=== PATIENT | female | born 1950 | race Hispanic/Latino ===

== ENCOUNTER 2019-10-29 10:07 | Emergency (ER) | payer MEDICARE, OTHER ==
[~2019-10-29] VITALS: Ht 160 cm; Wt 59.0 kg
[~2019-10-29 10:07] MED LIST: ATENOLOL PO; ATORVASTATIN PO; CYCLOBENZAPRINE10 MG PO; FENOFIBRATE PO; FOLIC ACID1 MG PO; LISINOPRIL PO; METHOTREXATE PO; METHYLPREDNISOLONE PO; NIFEDIPINE ER PO; PAROXETINE PO; TRAMADOL-ACETAMI1 EA PO; glimepiride PO; levothyroxine PO; ranitidine PO
[2019-10-29] MEDS ORDERED: LIDOCAINE HCL 1% LOCAL INJ 20 ML VIAL ONE (11:14)
[2019-10-29] MEDS ORDERED: BACITRACIN ZINC 0.9GM TP ONE ×2 (11:25→11:30)
[2019-10-29] MEDS ORDERED: LIDOCAINE HCL 1% 2 ML AMP INJ ONE (11:30)
--- OUTSIDE RECORDS SUMMARY | 2019-10-29 11:36 | XMS REPORT ---
Author Author MIKAL Mcrae Organization [employer] Address Unknown Phone Unavailable Care Team Providers Care District Court Reporter Name Role Phone James Mcrae CP Unavailable Allergies No Known Allergies Problems Problem Type Condition Code Onset Dates Condition Statu s Problem Rheumatoid arthritis with rh eumatoid factor of multiple sites without organ or systems involvement M05.79 Active Problem Primary osteoarthritis involving multiple joints M15.0 Active Problem Subacromial bursitis, right M75.51 Active Problem Trapezius muscle spasm M62.838 Activ e Problem Long-term use of high-risk medication Z79.899 Active Problem Arm pain M79.603 Active Problem Back pain M54.9 Active Problem Screening for osteoporosis Z13.820 A ctive Medications No Known Medications Results No Known Results Summary Purpose eClinicalWorks Submission
--- OUTSIDE RECORDS SUMMARY | 2019-10-29 11:36 | XMS REPORT ---
Author Author MIKAL Mcrae Organization [employer] Address Unknown Phone Unavailable Care Team Providers Care Construction Framer Name Role Phone James Mcrae CP Unavailable [...]
--- OUTSIDE RECORDS SUMMARY | 2019-10-29 11:36 | XMS REPORT ---
Author Author MIKAL Mcrae Organization [employer] Address Unknown Phone Unavailable Care Team Providers Care Fish Receiver Name Role Phone James Mcrae CP Unavailable [...]
--- OUTSIDE RECORDS SUMMARY | 2019-10-29 11:36 | XMS REPORT ---
Author Author MIKAL Henderson [facility] eClinicalWorks Address Unknown Phone Unavailable Care Team Providers Care Open Hearth Furnace Laborer Name Role Phone Catie Henderson Unavailable Allergies, Adverse Reactions, Alerts Substance Reaction Event Type PCN rash Non Drug Allergy Problems Problem Type Condition Code Onset Dates Condition Statu s Assessment Primary osteoarthritis involving multiple joints M15.0 Active Assessment Rheumatoid arthritis with rh eumatoid factor of multiple sites without organ or systems involvement M05.79 Active Assessment Long-term use of high-risk medication Z79.899 Active Assessment Muscle spasm M62.838 Active Problem Subacromial bursitis, right M75.51 Active Problem Back pain M54.9 Active Problem Primary osteoarthritis involving multiple joints M15.0 Active Problem Arm pain M79.603 Active Problem Rheumatoid arthritis with rh eumatoid factor of multiple sites without organ or systems involvement M05.79 Active Problem Screening for osteoporosis Z13.820 A ctive Problem Long-term use of high-risk medication Z79.899 Active Medications Medication Code System Code Instructions Start Date End Date Status Dosage Folic Acid [facility] [address]-12 1 MG Orally Once a day Active 2 tablets Methotrexate ND 0 25mg/1mL Subcutaneous Once a week Active 1mL Losartan Potassium-HCTZ [facility] [address]-81 100-12.5 MG Orally Onc e a day Active 1 tablet MethylPREDNISolone [facility] 43359146170 4 Active T REBECCA ONE TABLET BY MOUTH DAILY Atorvastatin Calcium [facility] [address]-87 10 MG Orally Once a day Active 1 tablet Levothyroxine Sodium [facility] [address]-20 75 MCG Orally Once a day Active 1 tablet on an empty stomach in the morning Gabapentin [facility] 83805752048 300 mg once a day Active 1 capsule NIFEdipine [facility] [address]-43 30 MG Orally Once a day Active as directed Esomeprazole Magnesium [facility] [address]-36 40 MG Orally Once a day Active 1 capsule Fenofibrate [facility] [address]-36 54 MG Orally Once a day Active 1 tablet with a meal Atenolol [facility] [address]-34 50 MG Orally twice a day Active 1 tablet Paroxetine HCl [facility] [address]-57 20 MG Orally Once a day Active 1 tablet in the morning Glimepiride [facility] [address]-67 1 MG Orally Once a day Active 1 tablet with breakfast or the first main meal of the day Hydroxychloroquine Sulfate [facility] 54999661637 200 mg twice a day Active TAKE ONE TABLET BY MOUTH TWICE A DAY WITH FOOD Metformin HCl [facility] [address]-83 500 MG Orally Twice a day Active 1 tablet with meals Ranitidine & Diet Manage Prod ND 0 150 MG Orally once a day Active as directed Tizanidine HCl [facility] [address]-86 4 MG Orally every 8 hrs Active 1 tablet as needed Tylenol [facility] [address]-40 325 MG Orally every 6 hrs Active 2 tablets as needed BD Allergy Syringe [facility] 60135611635 1 mL Active U SE ONE - DIRECTED WEEKLY Lisinopril [facility] [address]-64 10 mg Orally Once a day Active 1 tablet Vital Signs Date/Time: Dec 19, 2016 BMI 24.20 Index Weight 132.3 lbs Height 62 in Temperature 96.7 F Cardiac Monitoring Heart Rate 70 /min Blood Pressure Diastolic 70 mm Hg Blood Pressure Systolic 142 mm Hg Results No Known Results Summary Purpose eClinicalWorks Submission
--- OUTSIDE RECORDS SUMMARY | 2019-10-29 11:36 | XMS REPORT ---
Author Author MIKAL Mcrae [facility] eClinicalWorks Address Unknown Phone Unavailable Care Team Providers Care Diesel Electrician Name Role Phone James Mcrae CP Unavailable [...] Screening for osteoporosis Z13.820 A ctive Medications Medication Code System Code Instructions Start Date End Date Status Dosage Lyrica [facility] 25475935757 50 MG Orally Once a day Apr 10, 2017 Active 1 capsule Results No Known Results Summary Purpose eClinicalWorks Submission
--- OUTSIDE RECORDS SUMMARY | 2019-10-29 11:36 | XMS REPORT ---
Author Author MIKAL Mcrae Organization [employer] Address Unknown Phone Unavailable Care Team Providers Care Blanchard Grinder Operator Name Role Phone James Mcrae CP Unavailable Allergies No Known Allergies Problems Problem Type Condition Code Onset Dates Condition Statu s Problem Long-term use of high-risk medication Z79.899 Active Problem Rheumatoid arthritis with rh eumatoid factor of multiple sites without organ or systems involvement M05.79 Active Assessment Rheumatoid arthritis with rh eumatoid factor of multiple sites without organ or systems involvement M05.79 Active Problem Trapezius muscle spasm M62.838 Activ e Problem Primary osteoarthritis involving multiple joints M15.0 Active Problem Shoulder pain M25.519 Active Problem Screening for osteoporosis Z13.820 A ctive Problem Arm pain M79.603 Active Problem Subacromial bursitis, right M75.51 Active Problem Back pain M54.9 Active Medications Medication Code System Code Instructions Start Date End Date Status Dosage Folic Acid [facility] 30537603933 1 MG Orally Once a day Ac tive 2 tablets Results No Known Results Summary Purpose eClinicalWorks Submission
--- OUTSIDE RECORDS SUMMARY | 2019-10-29 11:36 | XMS REPORT ---
Author Author MIKAL Mcrae Organization [employer] Address Unknown Phone Unavailable Care Team Providers Care Funeral Service Apprentice Name Role Phone James Mcrea CP Unavailable Allergies No Known Allergies Problems Problem Type Condition Code Onset Dates Condition Statu s Problem Subacromial bursitis, right M75.51 Active Problem Back pain M54.9 Active Problem Primary osteoarthritis involving multiple joints M15.0 Active Problem Arm pain M79.603 Active Problem Rheumatoid arthritis with rh eumatoid factor of multiple sites without organ or systems involvement M05.79 Active Problem Screening for osteoporosis Z13.820 A ctive Problem Long-term use of high-risk medication Z79.899 Active Medications No Known Medications Results No Known Results Summary Purpose eClinicalWorks Submission
--- OUTSIDE RECORDS SUMMARY | 2019-10-29 11:36 | XMS REPORT ---
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 organ or systems involvement M05.79 Active Problem Rheumatoid arthritis with rh eumatoid factor of multiple sites without organ or systems involvement M05.79 Active Assessment Long-term use of high-risk medication Z79.899 Active Problem Primary osteoarthritis involving multiple joints M15.0 Active Problem Subacromial bursitis, right M75.51 Active Problem Trapezius muscle spasm M62.838 Activ e Problem Long-term use of high-risk medication Z79.899 Active Problem Arm pain M79.603 Active Problem Back pain M54.9 Active Problem Screening for osteoporosis Z13.820 A ctive Medications Medication Code System Code Instructions Start Date End Date Status Dosage Carvedilol ND 95026510584 25 MG Orally bid Active 1 tablet Tizanidine HCl ND 22834132336 4 MG Orally every 8 hrs Active 1 tablet as needed Losartan Potassium-HCTZ ND 72508508858 100-25 MG Orally Once a day Active 1 tablet Levothyroxine Sodium ND 47277050702 125 MCG Orally Once a day Active 1 tablet on an empty stomach in the morning MethylPREDNISolone ND 59539734564 4 MG Active T OME MARY TABLETA POR VIA ORAL CADA MANANA CON COMIDA O LECHE Metformin HCl ND 50135049207 500 MG Orally Twice a day Active 1 tablet with meals Amlodipine Besylate ND 51263990153 5 MG Orally bid Active 1 tablet Paroxetine HCl ND 03467089607 20 MG Orally Once a day Active 1 tablet in the morning Fenofibrate ND 65787464337 54 MG Orally Once a day Active 1 tablet with a meal Gabapentin ND 24051346697 100 MG Orally Twice a day Mar 30, 2018 Active 1 capsule Methotrexate [facility] 48077899821 2.5mg Orally Once a week October 01, 2018 Active 6 tablets Folic Acid [facility] 70768970030 1 MG Orally Once a day Ac tive 2 tablets Esomeprazole Magnesium [facility] 82747773325 40 MG Orally bid Active 1 capsule Vital Signs Date/Time: Oct 15, 2018 BMI 24.56 Index Weight 130 lbs Height 61 in Temperature 98.7 F Cardiac Monitoring Heart Rate 72 /min Blood Pressure Diastolic 70 mm Hg Blood Pressure Systolic 150 mm Hg Results Name Result Date Reference Range Unit Abnormali ty Flag C-REACTIVE PROTEIN ----C-REACTIVE PROTEIN 0.7 [id number] <8.0 mg/L N SED RATE BY MODIFIED WESTERGREN ----SED RATE BY MODIFIED WESTERGREN 2 [id number] < OR = 30 mm/h N Summary Purpose eClinicalWorks Submission
--- OUTSIDE RECORDS SUMMARY | 2019-10-29 11:36 | XMS REPORT | Continuity of Care Document ---
Author Author [facility] [employer] Address Unknown Phone Unavailable Care Team Providers Care Owner Spa Director Name Role Phone [employer] Unavailable Un available Problems Problem Status Onset Date Classification Date Reported Comments Source TRAPEZIUS MUSCLE SPASM, NECK PAIN Active 07/27/2018 [facility] [place] Other spondylosis with radiculopathy, clair mbosacral region 02/08/2018 06/21/2018 [facility] DIARHEA Active 12/19/2014 [place] Subacromial bursitis, right Ac tive Problem 10/2019 Viraj Mcrae Back pain Active Problem 09/15/2019 Viraj Mcrae Primary osteoarthritis involving multiple joints Active Problem 09/15/2019 Viraj Garcíaer Arm pain Active Problem 09/15/2019 Viraj Garcíaer 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 Active Problem 09/15/2019 Viraj Mcrae Screening for osteoporosis Act lul Problem 10/2019 Viraj Mcrae Long-term use of high-risk medication Active Problem 10/2019 Viraj Garcíaer Trapezius muscle spasm Active Problem 09/15/2019 Viraj Garcíaer Muscle spasm Active Diagnosis 12/24/2016 Viraj Mcrae Rheumatoid arthritis Active Problem 02/28/2016 Virajleydi Mcrae Long-term (current) use of other medicat ions - High Risk Active Prob blane 02/28/2016 Viraj Mcrae Pain in joint, upper arm/elbow Active Problem Viraj Mcrae Psoriasis Active Problem 02/28/2016 Virajleydi Mcrae Postmenopausal status (age-related) Active Problem Viraj Mcrae Screening for depression Active Diagnosis 01/13/2014 Viraj Mcrae Pain in joint, shoulder region Active Problem Viraj Mcrae Pain, back Active Diagnosis 01/13/2014 Viraj Mcrae Fibromyalgia Active Diagnosis 10/21/2014 Viraj Mcrae Sacroiliitis, not elsewhere classified Active Diagnosis 01/13/2014 Viraj Mcrae Spasm of muscle Active Problem 02/28/2016 Viraj Garcíaer Left shoulder pain Active Diagnosis 02/28/2016 Viraj Mcrae Neck pain Active Diagnosis 12/02/2018 Viraj Mcrae Shoulder pain Active Problem 09/15/2019 Viraj Mcrae Other forms of scoliosis, lumbar region 06/21/2018 [facility] [place] Spinal stenosis, lumbar region without n eurogenic claudication 06/21/2018 [facility] [place] Medications Medication Details Route Status Patient Instructions Ordering Provider Order Date Source Plaquenil one tablet with food of milk Orally Active 200 MG Orally once a day [place] 02/01/2019 Viraj Mcrae Methotrexate 6 tablets Orally Active 2.5mg Orally Once a wee k [place] 10/01/2018 Viraj Mcrae Gabapentin 1 capsule Orally Active 100 MG Orally Twice a d ay [place] 03/30/2018 Viraj Mcrae Hydroxychloroquine Sulfate 1 t ablet with food or milk Orally Active 200 MG Orally twice a day [place] 01/13/2018 Viraj Mcrae Methotrexate 1mL Subcutaneous Active 25mg/1mL Subcutaneous O nce a week [place] 12/31/2017 Viraj Mcrae Lyrica 1 capsule Orally Active 50 MG Orally Once a day [place] 04/10/2017 Viraj Mcrae Lyrica 1 capsule Orally Active 50 MG Orally q day Mcrae 03/20/2017 Viraj Mcrae Rheumate 1 tabelt Orally Active - Orally once a day Mcrae 12/30/2016 Viraj Mcrae Methotrexate 1mL Subcutaneous Active 25mg/1mL Subcutaneous O nce a week [place] 06/16/2015 Viraj Mcrae Gabapentin 1 cap daily 3 day, 2 cap daily x 3 day and then take 3 caps daily Orally Active 100 MG Orally qhs Elidia 10/10/2014 Viraj Mcrae Rasuvo 0.4 ml Subcutaneous Active 20 MG/0.4ML Subcutaneou s once a week Elidia 10/10/2014 Viraj Mcrae Medrol (Remi) as directed Orally Active 4 MG Orally Elidia 06/20/2014 Viraj Mcrea Hydroxychloroquine Sulfate 1 t ablet with food or milk Orally Active 200 MG Orally twice a day Yous af 06/20/2014 Viraj Mcrae Enbrel SureClick 1 ml Subcutaneous Active 50 MG/ML Subcutaneous once a week [place] 08/23/2013 Viraj Mcrae Folic Acid 2 tablets Orally Active 1 MG Orally Once a day [place] [facility] Mcrae Methotrexate 0.8 cc Subcutaneous Active 25mg/1mL Subcutaneous Once a week Clementina Mcrae Losartan Potassium-HCTZ 1 tabl et Orally Active 100-12.5 MG Orally Once a day Santiago Mcrae MethylPREDNISolone TAKE ONE TA BLET BY MOUTH DAILY NA Active 4m gv Clementina Mcrae Atorvastatin Calcium 1 tablet Orally Active 10 MG Orally Once a day [place] Viraj Mcrae Levothyroxine Sodium 1 tablet on an empty stomach in the morning Orally Active 75 MCG Orally Once a day [place] Viraj Mcrae Gabapentin 1 capsule NA Active 300 mg once a day [place] [facility] Mcrae NIFEdipine as directed Orally Active 30 MG Orally Once a day [place] Viraj Mcrae Esomeprazole Magnesium 1 capsu le Orally Active 40 MG Orally Once a day [place] Viraj Mcrae Fenofibrate 1 tablet with a me al Orally Active 54 MG Orally Once a day [place] Viraj Mcrae Atenolol 1 tablet Orally Active 50 MG Orally twice a da y [place] [facility] Mcrae Paroxetine HCl 1 tablet in the morning Orally Active 20 MG Orally Once a day [place] Viraj Mcrae Glimepiride 1 tablet with chris kfast or the first main meal of the day Orally Active 1 MG Orally Once a day Santiago Mcrae Hydroxychloroquine Sulfate EZ E MARY TABLETA POR BOCA DOS VECES POR TREVOR WITH FOOD NA Active 200 MG Hendersonmian Mcrae Metformin HCl 1 tablet with me als Orally Active 500 MG Orally Twice a day [place] Viraj Mcrae Ranitidine & Diet Manage Prod as directed Orally Active 150 MG Orally once a day Clementina Mcrae Tizanidine HCl 1 tablet as nee ded Orally Active 4 MG Orally every 8 hrs [place] Viraj Mcrae Tylenol 2 tablets as needed Orally Active 325 MG Orally every 6 hrs Santiago Mcrae BD Allergy Syringe USE ONE - A S DIRECTED WEEKLY NA Active 1 mL Hendersonmian Mcrae Lisinopril 1 tablet Orally Active 10 mg Orally Once a day [place] [facility] Mcrae Gabapentin 2 capsules Orally Active 100 MG Orally once a da y [place] Viraj Mcrae Paroxetine HCl 1 tablet in the morning Orally Active 20 MG Orally Once a day [place] Viraj Mcrae Losartan Potassium-HCTZ 1 tabl et Orally Active 100-25 MG Orally Once a day Santiago Mcrae Carvedilol 1 tablet Orally Active 25 MG Orally bid Shanelle Mcrae Atorvastatin Calcium 1 tablet Orally Active 10 MG Orally Once a day Santiago Mcrae Esomeprazole Magnesium 1 capsu le Orally Active 40 MG Orally bid Shanelle Mcrae Gabapentin 2 capsules Orally Active 100 MG Orally once a da y Santiago Mcrae Amlodipine Besylate 1 tablet Orally Active 5 MG Orally bid Shanelle Mcrae Levothyroxine Sodium 1 tablet on an empty stomach in the morning Orally Active 125 MCG Orally Once a day Ambr meme Mcrae Metformin HCl 1 tablet with me als Orally Active 500 MG Orally Twice a day Shanelle Mcrae Fenofibrate 1 tablet with a me al Orally Active 54 MG Orally Once a day Shanelle Mcrae Tizanidine HCl 1 tablet as nee ded Orally Active 4 MG Orally every 8 hrs Shanelle Mcrae Folic Acid 2 tablets Orally Active 1 MG Orally Once a day Clementina Mcrae Lisinopril 1 tablet Orally Active 10 mg Orally Once a day Clementina Mrcae Glimepiride 1 tablet with chris kfast or the first main meal of the day Orally Active 1 MG Orally Once a day Clementina Mcrae MethylPREDNISolone 1 tablet wi th food or milk in the morning Orally Active 4 MG Orally Once a day Clementina Mcrae Methotrexate 6 tablets Orally Active 2.5mg Orally Once a wee k Santiago Mcrae Cyclobenzaprine HCl 1 tablet Orally Active 10 MG Orally Three times a day Elidia Mcrae MethylPREDNISolone TAKE ONE TA BLET BY MOUTH EVERY DAY NA Active 4 Elidiaanette Mcrae Tramadol-Acetaminophen 1 table ts as needed Orally Active 37.5-325 MG Orally four times a day Elidia Mcrae Ranitidine & Diet Manage Prod as directed Orally Active 150 MG Orally once a day Santiago Mcrae Methotrexate TAKE 8 TABLETS BY MOUTH ONCE WEEKLY NA No Longer Active 2.5 Elidiaanette Mcrae Gabapentin TAKE ONE CAPSULE BY MOUTH DAILY FOR 3 DAYS THEN TAKE TWO CAPSULES BY MOUTH DAILY FOR 3 DAYS THEN TAKE THREE CAPSULES BY MOUTH DAILY NA Active 100 Elidiaanette Mcrae Nitrofurantoin Monohyd Macro 1 capsule with food Orally Active 100 MG Orally every 12 hrs Elidia Viraj Mcrae Macrobid 1 capsule with food Orally Active 100 MG Orally every 12 hrs Elidia Viraj Mcrae MethylPREDNISolone 1/2 tab blanca ly x 4wks, then 1/2 tab QOD if tolerated. NA Active 4 Elidia Viraj Mcrae Flu/Cold Medicine as directed Orally Active 500-4-60 MG Orally [place] Viraj Mcrae MethylPREDNISolone 1 tablet wi th food or milk Orally Active 4 MG Orally once a day Shanelle Mcrae Losartan Potassium-HCTZ 1 tabl et Orally Active 100-25 MG Orally Once a day [facility] Viraj Mcrae Methotrexate Sodium ONE INJECT ION OF 1ML (ONE MILLILITER) DEBAJO DE [place] PIEL ONCE WEEKLY NA Active 50 MG/2ML Santiago Mcrae Methotrexate 6 tablets Orally Active 2.5mg Orally Once a wee k Shanelle Mcrae Gabapentin 1 capsule Orally Active 100 MG Orally Twice a d ay Shanelle Mcrae Ibuprofen 1 tablet with food o r milk as needed Orally Active 800 MG Orally Once a day Santiago Mcrae Tylenol#3 1 tablet Orally Active 300-30 MG Orally Once a day Santiago Mcrae Olmesartan Medoxomil 1 tablet Orally Active 40 MG Orally Once a day Shanelle Mcrae Atorvastatin Calcium 1 tablet Orally Active 40 MG Orally Once a day Shanelle Mcrae Hydrochlorothiazide 1 capsule in the morning Orally Active 12.5 MG Orally Once a day Shanelle Mcrae Allergies, Adverse Reactions, Alerts Substance Category Reaction Severity Reaction type Status Date Reported Comments Source PCN Adverse Reaction rash Adverse Reaction Active 07/19/2019 Viraj Mcrae No Known Medication Allergies Assertion Drug aller gy [facility] [place] Immunizations Immunization Date Given Site Status Last Updated Comments Source Toradol 01/11/2014 completed Viraj Mcrae Toradol 10/11/2013 completed Viraj Mcrae Results No Data Provided for This Section Pathology Reports No Data Provided for This Section Diagnostic Reports Report Value Date Source Spine lumbar wo contrast MRI S pine lumbar wo contrast MRI , 12/02/2017 11:22 AM CDT. CLINICAL INDICATION: 67 years Female M47.27 Other spond ylosis with radiculopathy, lumbosacral region - M47.27 Other spondylosis with radiculopathy, lumbosacral region . Comparison: Plain films 12/26/2009 TECHNIQUE: Sagittal T1, sagittal T2 with fat saturation, axial T1 and axial T2 images were obtained. FINDINGS: Patient motion may limit evaluation. There is a transitional lumbosacral junction with hypoplastic but fully formed S1-S2 disc and pseudojoint formation with bilateral sacral ala. There is 10 degrees levoscoliosis centered at L3. Left lateral subluxation of L4 on L5 measures approximately 8 mm. L4-L5 grade 1 anterior listhesis measures 5 mm, without pars defect. L2-L3 minimal retrolisthesis of 3 mm. The vertebrae are otherwise normal in shape, signal intensity and alignment. The intervertebral disks are diffusely desiccated. The conus medullaris terminates normally at the L1-L2 level. There is no intradural mass lesion. The paravertebral musculature demonstrates moderate fatty atrophy in keeping with deconditioning. Subcentimeter T2 hyperintensities in the left kidney are too small to characterize, but possibly due to small cysts. T12-L1: There is preservation of the disc height, with no bulging, herniation, spinal stenosis, or neural foraminal stenosis. L1-L2: There is preservation of the disc height, with no bulging, herniation, spinal stenosis, or neural foraminal stenosis. L2-L3: There is preservation of the disc height, with no bulging, herniation, spinal stenosis, or neural foraminal stenosis. L3-L4: There is preservation of the disc height, with no bulging, herniation, spinal stenosis, or neural foraminal stenosis. L4-L5: Mild disc height loss. Disc bulge slightly asymmetric to the left measures up to 3 mm beyond the posterior cortex of L5 exaggerated by the anterior listhesis with mild facet hypertrophy, joint fluid, and moderate ligamentum flavum thickening. This results in moderate left greater than right canal lateral recess narrowing with crowding of the nerve roots. Mild to moderate right greater than left neural foraminal narrowing, with minimal deformity of the right L4 nerve root. No focal disc herniation. L5-S1: Disc height preserved. 3 mm disc bulge with mild facet hypertrophy. This results in mild bilateral neural foraminal and lateral recess narrowing. No focal disc herniation or significant canal stenosis IMPRESSION: 1. Transitional lumbosacral junction. Mi ld levoscoliosis with L4-L5 lateral subluxation. 2. L4-L5 grade 1 anterior listhesis and L2-L3 retrolisthesis. If there is clinical concern for instability, consider flexion-extension views. 3. Moderate left greater than right L4-L 5 canal/lateral recess stenosis. 4. Multilevel foraminal narrowing slight form in the right L4 nerve root. Other mild stenoses as above. 12/02/2017 [facility] Consultation Notes No Data Provided for This Section Discharge Summaries No Data Provided for This Section History and Physicals No Data Provided for This Section Vital Signs Vital Sign Value Date Comments Source Weight 128 07/19/2019 Viraj Mcrae Height 61 0 07/19/2019 Viraj Mcrae Heart Rate 70 07/19/2019 Viraj Mcrae Diastolic (mm Hg) 52 07/19/2019 Viraj Mcrae Systolic (mm Hg) 129 07/19/2019 Viraj Mcrae Weight 127.5 06/01/2019 Viraj Mcrae Height 61 0 06/01/2019 Viraj Mcrae Temperature Oral (F) 98.5 F 06/01/2019 Viraj Mcrae Heart Rate 68 06/01/2019 Viraj Mcrae Diastolic (mm Hg) 66 06/01/2019 Viraj Mcrae Systolic (mm Hg) 142 06/01/2019 Viraj Mcrae Weight 130.4 04/19/2019 Viraj Mcrae Height 62 0 04/19/2019 Viraj Mcrae Temperature Oral (F) 97.6 F 04/19/2019 Viraj Mcrae Heart Rate 76 04/19/2019 Viraj Mcrae Diastolic (mm Hg) 60 04/19/2019 Viraj Mcrae Systolic (mm Hg) 142 04/19/2019 Virja Mcrae Weight 132.9 01/15/2019 Viraj Mcrae Height 61 1 03/17/2018 Viraj Mcrae Temperature Oral (F) 98.9 F 01/15/2019 Viraj Mcrae Heart Rate 64 01/15/2019 Viraj Mcrae Diastolic (mm Hg) 60 01/15/2019 Viraj Mcrae Systolic (mm Hg) 160 01/15/2019 Viraj Mcrae Weight 130 10/15/2018 Viraj Mcrae Height 61 0 10/15/2018 Viraj Mcrae Temperature Oral (F) 98.7 F 10/15/2018 Viraj Mcrae Heart Rate 72 10/15/2018 Viraj Mcrae Diastolic (mm Hg) 70 10/15/2018 Viraj Mcrae Systolic (mm Hg) 150 10/15/2018 Viraj Mcrae Weight 128.3 07/16/2018 Viraj Mcrae Height 61 0 07/16/2018 Viraj Mcrae Temperature Oral (F) 98.4 F 07/16/2018 Viraj Mcrae Heart Rate 64 07/16/2018 Viraj Mcrae Diastolic (mm Hg) 60 07/16/2018 Viraj Mcrae Systolic (mm Hg) 120 07/16/2018 Viraj Mcrae Weight 131.4 03/30/2018 Viraj Mcrae Height 61 0 03/30/2018 Viraj Mcrae Temperature Oral (F) 98.2 F 03/30/2018 Viraj Mcrae Heart Rate 64 03/30/2018 Viraj Mcrae Diastolic (mm Hg) 60 03/30/2018 Viraj Mcrae Systolic (mm Hg) 140 03/30/2018 Viraj Mcrae Weight 159 10/23/2017 Viraj Mcrae Height 60 0 10/23/2017 Viraj Mcrae Temperature Oral (F) 98.8 F 10/23/2017 Viraj Mcrae Heart Rate 74 10/23/2017 Viraj Mcrae Diastolic (mm Hg) 70 10/23/2017 Viraj Mcrae Systolic (mm Hg) 140 10/23/2017 Viraj Mcrae Weight 136 06/19/2017 Viraj Mcrae Height 60 0 06/19/2017 Viraj Mcrae Temperature Oral (F) 96.1 F 06/19/2017 Viraj Mcrae Heart Rate 78 06/19/2017 Viraj Mcrae Diastolic (mm Hg) 52 06/19/2017 Ivraj Mcrae Systolic (mm Hg) 122 06/19/2017 Viraj Mcrae Weight 133 03/20/2017 Viraj Mcrae Height 60 0 03/20/2017 Viraj Mcrae Temperature Oral (F) 97.4 F 03/20/2017 Viraj Mcrae Heart Rate 68 03/20/2017 Viraj Mcrae Diastolic (mm Hg) 78 03/20/2017 Viraj Mcrae Systolic (mm Hg) 160 03/20/2017 Viraj Mcrae Weight 131.5 12/30/2016 Viraj Mcrae Height 62 1 Viraj Mcrae Temperature Oral (F) 99.3 F 12/30/2016 Viraj Mcrae Heart Rate 72 12/30/2016 Viraj Mcrae Diastolic (mm Hg) 70 12/30/2016 Viraj Mcrae Systolic (mm Hg) 140 12/30/2016 Viraj Mcrae Weight 132.3 12/19/2016 Viraj Mcrae Height 62 1 Viraj Mcrae Temperature Oral (F) 96.7 F 12/19/2016 Viraj Mcrae Heart Rate 70 12/19/2016 Viraj Mcrae Diastolic (mm Hg) 70 12/19/2016 Viraj Mcrae Systolic (mm Hg) 142 12/19/2016 Viraj Mcrae Weight 130 09/18/2016 Viraj Mcrae Height 62 0 09/18/2016 Viraj Mcrae Temperature Oral (F) 98.6 F 09/18/2016 Viraj Mcrae Heart Rate 64 09/18/2016 Viraj Mcrae Diastolic (mm Hg) 60 09/18/2016 Viraj Mcrae Systolic (mm Hg) 132 09/18/2016 Viraj Mcrae Weight 132 06/18/2016 Viraj Mcrae Height 61 0 06/18/2016 Viraj Mcrae Temperature Oral (F) 98.3 F 06/18/2016 Viraj Mcrae Heart Rate 72 06/18/2016 Viraj Mcrae Diastolic (mm Hg) 68 06/18/2016 Viraj Mcrae Systolic (mm Hg) 122 06/18/2016 Viraj Mcrae Weight 140.3 03/18/2016 Viraj Mcrae Height 61.5 03/18/2016 Viraj Mcrae Temperature Oral (F) 97.5 F 03/18/2016 Viraj Mcrae Heart Rate 70 03/18/2016 Viraj Mcrae Diastolic (mm Hg) 66 03/18/2016 Viraj Mcrae Systolic (mm Hg) 122 03/18/2016 Viraj Mcrae Weight 145.4 02/26/2016 Viraj Mcrae Height 61 1 04/28/2015 Viraj Mcrae Temperature Oral (F) 97.5 F 02/26/2016 Viraj Mcrae Heart Rate 66 02/26/2016 Viraj Mcrae Diastolic (mm Hg) 70 02/26/2016 Viraj Mcrae Systolic (mm Hg) 128 02/26/2016 Viraj Mcrae Weight 149 11/28/2015 Viraj Mcrae Height 61 0 11/28/2015 Viraj Mcrae Temperature Oral (F) 98.4 F 11/28/2015 Viraj Mcrae Heart Rate 64 11/28/2015 Viraj Mcrae Diastolic (mm Hg) 62 11/28/2015 Viraj Mcrae Systolic (mm Hg) 130 11/28/2015 Viraj Mcrae Weight 152 11/01/2015 Viraj Mcrae Height 61 0 11/01/2015 Viraj Mcrae Temperature Oral (F) 98.8 F 11/01/2015 Viraj Mcrae Heart Rate 64 11/01/2015 Viraj Mcrae Diastolic (mm Hg) 60 11/01/2015 Viraj Mcrae Systolic (mm Hg) 130 11/01/2015 Viraj Mcrae Weight 155 09/28/2015 Viraj Mcrae Height 62 0 09/28/2015 Viraj Mcrae Temperature Oral (F) 99.2 F 09/28/2015 Viraj Mcrae Heart Rate 68 09/28/2015 Viraj Mcrae Diastolic (mm Hg) 40 09/28/2015 Viraj Mcrae Systolic (mm Hg) 120 09/28/2015 Viraj Mcrae Weight 150 06/29/2015 Viraj Mcrae Height 62 0 06/29/2015 Viraj Mcrae Temperature Oral (F) 98.3 F 06/29/2015 Viraj Mcrae Heart Rate 70 06/29/2015 Viraj Mcrae Diastolic (mm Hg) 70 06/29/2015 Viraj Mcrae Systolic (mm Hg) 138 06/29/2015 Viraj Mcrae Weight 79.545 12/20/2014 [facility] Heart Rate 88 12/20/2014 [facility] Respitory Rate 18 12/20/2014 [facility] Systolic (mm Hg) 152 12/20/2014 [facility] Diastolic (mm Hg) 82 12/20/2014 [facility] Weight 145 10/10/2014 Viraj Mcrae Height 61 0 10/10/2014 Viraj Mcrae Temperature Oral (F) 98.1 F 10/10/2014 Viraj Mcrae Heart Rate 64 10/10/2014 Viraj Mcrae Diastolic (mm Hg) 68 10/10/2014 Viraj Mcrae Systolic (mm Hg) 122 10/10/2014 Viraj Mcrae Weight 155 06/20/2014 Viraj Mcrae Height 62 0 06/20/2014 Viraj Mcrae Temperature Oral (F) 98.9 F 06/20/2014 Viraj Mcrae Heart Rate 72 06/20/2014 Viraj Mcrae Diastolic (mm Hg) 74 06/20/2014 Viraj Mcrae Systolic (mm Hg) 144 06/20/2014 Viraj Mcrae Weight 153 03/21/2014 Viraj Mcrae Height 61 0 03/21/2014 Viraj Mcrae Temperature Oral (F) 99.4 F 03/21/2014 Viraj Mcrae Heart Rate 72 03/21/2014 Viraj Mcrae Diastolic (mm Hg) 68 03/21/2014 Viraj Mcrae Systolic (mm Hg) 142 03/21/2014 Viraj Mcrae Weight 153 01/11/2014 Viraj Mcrae Height 62 1 03/13/2013 Viraj Mcrae Temperature Oral (F) 98.8 F 01/11/2014 Viraj Mcrae Heart Rate 70 01/11/2014 Viraj Mcrae Diastolic (mm Hg) 84 01/11/2014 Viraj Mcrae Systolic (mm Hg) 128 01/11/2014 Viraj Mcrae Weight 151 10/11/2013 Viraj Mcrae Height 62 0 10/11/2013 Viraj Mcrae Temperature Oral (F) 97.3 F 10/11/2013 Viraj Mcrea Heart Rate 76 10/11/2013 Viraj Mcrae Diastolic (mm Hg) 70 10/11/2013 Viraj Mcrae Systolic (mm Hg) 126 10/11/2013 Viraj Mcrae Weight 158 08/23/2013 Viraj Mcrae Height 62 0 08/23/2013 Viraj Mcrae Temperature Oral (F) 98.9 F 08/23/2013 Viraj Mcrae Heart Rate 76 08/23/2013 Viraj Mcrae Diastolic (mm Hg) 72 08/23/2013 Viraj Mcrae Systolic (mm Hg) 136 08/23/2013 Viraj Mcrae Encounters Location Location Details Encounter Type Encounter Number Reason For Visit Attending Provider ADM Date DC Date Status Source James Mcrae MD [facility] [id number] 08/23/2013 08/23/2013 Viraj Mcrae MD [facility] [id number] 08/23/2013 08/23/2013 Viraj Mcrae MD [facility] [id number] 08/23/2013 08/23/2013 Viraj Mcrae MD [facility] [id number] 08/23/2013 08/23/2013 Viraj Mcrae MD [facility] [id number] 08/23/2013 08/23/2013 Viraj Mcrae MD [facility] [id number] 08/23/2013 08/23/2013 Viraj Mcrae MD [facility] [id number] 08/23/2013 08/23/2013 Viraj Mcrae MD [facility] [id number] 08/23/2013 08/23/2013 Viraj Mcrae MD [facility] [id number] 08/23/2013 08/23/2013 Viraj Mcrae MD [facility] [id number] 08/23/2013 08/23/2013 Viraj Mcrae MD [facility] [id number] 08/23/2013 08/23/2013 Viraj Mcrae MD [facility] [id number] 08/23/2013 08/23/2013 Viraj Mcrae MD [facility] [id number] 08/23/2013 08/23/2013 Viraj Mcrae MD [facility] [id number] 08/23/2013 08/23/2013 Viraj Mcrae MD [facility] [id number] 08/23/2013 08/23/2013 Viraj Mcrae MD [facility] [id number] 08/23/2013 08/23/2013 Viraj Mcrae MD [facility] [id number] 08/23/2013 08/23/2013 Viraj Mcrae MD [facility] [id number] 08/23/2013 08/23/2013 Viraj Mcrae MD [facility] [id number] 08/23/2013 08/23/2013 Viraj Mcrae MD [facility] [id number] 08/23/2013 08/23/2013 Viraj Mcrae MD [facility] [id number] 08/23/2013 08/23/2013 Viraj Mcrae MD [facility] [id number] 08/23/2013 08/23/2013 Viraj Mcrae MD [facility] [id number] 08/23/2013 08/23/2013 Viraj Mcrae MD [facility] [id number] 08/23/2013 08/23/2013 Viraj Mcrae MD [facility] [id number] 08/23/2013 08/23/2013 Viraj Mcrae MD [facility] [id number] 08/23/2013 08/23/2013 Viraj Mcrae MD study [id number] 09/03/2013 09/03/2013 Viraj Mcrae MD study [id number] 09/03/2013 09/03/2013 Viraj Mcrae MD study [id number] 09/03/2013 09/03/2013 Viraj Mcrae MD study [id number] 09/03/2013 09/03/2013 Viraj Mcrae MD study [id number] 09/03/2013 09/03/2013 Viraj Mcrae MD study [id number] 09/03/2013 09/03/2013 Viraj Mcrae MD study [id number] 09/03/2013 09/03/2013 Viraj Mcrae MD study [id number] 09/03/2013 09/03/2013 Viraj Mcrae MD study [id number] 09/03/2013 09/03/2013 Viraj Mcrae MD study [id number] 09/03/2013 09/03/2013 Viraj Mcrae MD study [id number] 09/03/2013 09/03/2013 Viraj Mcrae MD study [id number] 09/03/2013 09/03/2013 Viraj Mcrae MD study [id number] 09/03/2013 09/03/2013 Viraj Mcrae MD study [id number] 09/03/2013 09/03/2013 Viraj Mcrae MD study [id number] 09/03/2013 09/03/2013 Viraj Mcrae MD study [id number] 09/03/2013 09/03/2013 Viraj Mcrae MD study [id number] 09/03/2013 09/03/2013 Viraj Mcrae MD study [id number] 09/03/2013 09/03/2013 Viraj Mcrae MD study [id number] 09/03/2013 09/03/2013 Viraj Mcrae MD study [id number] 09/03/2013 09/03/2013 Viraj Mcrae MD study [id number] 09/03/2013 09/03/2013 Viraj Mcrae MD study [id number] 09/03/2013 09/03/2013 Viraj Mcrae MD study [id number] 09/03/2013 09/03/2013 Viraj Mcrae MD study [id number]-[id number] 09/03/2013 09/03/2013 Viraj Mcrae MD study [id number]-[id number] 09/03/2013 09/03/2013 Viraj Mcrae MD study [id number] 09/03/2013 09/03/2013 Viraj Mcrae MD Dissc[facility] treatment options [id number] 10/11/2013 10/11/2013 Viraj Mcrae MD [facility] treatment options [id number] 10/11/2013 10/11/2013 Viraj Mcrae MD [facility] treatment options [id number] 10/11/2013 10/11/2013 Viraj Mcrae MD Dissc[facility] treatment options [id number] 10/11/2013 10/11/2013 Viraj Mcrae MD Dissc[facility] treatment options [id number] 10/11/2013 10/11/2013 Viraj Mcrae MD Dissc[facility] treatment options [id number]-dxkf-z34o89ny20vf 10/11/2013 10/11/2013 Viraj Mcrae MD [facility] treatment options [id number] 10/11/2013 10/11/2013 Viraj Mcrae MD [facility] treatment options [id number] 10/11/2013 10/11/2013 Viraj Mcrae MD [facility] treatment options [id number] 10/11/2013 10/11/2013 Viraj Mcrae MD [facility] treatment options [id number] 10/11/2013 10/11/2013 Viraj Mcrae MD [facility] treatment options [id number] 10/11/2013 10/11/2013 Viraj Mcrae MD Dissc[facility] treatment options [id number] 10/11/2013 10/11/2013 Viraj Mcrae MD Dissc[facility] treatment options [id number] 10/11/2013 10/11/2013 Viraj Mcrae MD Dissc[facility] treatment options [id number] 10/11/2013 10/11/2013 Viraj Mcrae MD Dissc[facility] treatment options [id number] 10/11/2013 10/11/2013 Viraj Mcrae MD Dissc[facility] treatment options [id number] 10/11/2013 10/11/2013 Viraj Mcrae MD [facility] treatment options [id number] 10/11/2013 10/11/2013 Viraj Mcrae MD Dissc[facility] treatment options [id number] 10/11/2013 10/11/2013 Viraj Mcrae MD [facility] treatment options [id number] 10/11/2013 10/11/2013 Viraj Mcrae MD Dissc[facility] treatment options [id number] 10/11/2013 10/11/2013 Viraj Mcrae MD Dissc[facility] treatment options [id number] 10/11/2013 10/11/2013 Viraj Mcrae MD Dissc[facility] treatment options [id number] 10/11/2013 10/11/2013 Viraj Mcrae MD Dissc[facility] treatment options [id number] 10/11/2013 10/11/2013 Viraj Mcrae MD Disscuss treatment options [id number] 10/11/2013 10/11/2013 Viraj Mcrae MD MRI Bi- Wrists Verify [id number] 10/14/19 14 10/13/2013 Viraj Mcrae MD MRI Bi- Wrists Verify [id number] 10/14/19 14 10/13/2013 Viraj Mcrae MD MRI Bi- Wrists Verify [id number] 10/14/19 14 10/13/2013 Viraj Mcrae MD MRI Bi- Wrists Verify [id number] 10/14/19 14 10/13/2013 Viraj Mcrae MD MRI Bi- Wrists Verify [id number] 10/14/19 14 10/13/2013 Viraj Mcrae MD MRI Bi- Wrists Verify [id number] 10/14/19 14 10/13/2013 Viraj Mcrae MD MRI Bi- Wrists Verify [id number] 10/14/19 14 10/13/2013 Viraj Mcrae MD MRI Bi- Wrists Verify [id number] 10/14/19 14 10/13/2013 Viraj Mcrae MD MRI Bi- Wrists Verify [id number]-40770cge3lgg 10/14/19 14 10/13/2013 Viraj Mcrae MD MRI Bi- Wrists Verify [id number]-qh0b86a96dk9 10/14/19 14 10/13/2013 Viraj Mcrae MD MRI Bi- Wrists Verify [id number]-30d87xi0t18k 10/14/19 14 10/13/2013 Viraj Mcrae MD MRI Bi- Wrists Verify [id number] 10/14/19 14 10/13/2013 Viraj Mcrae MD MRI Bi- Wrists Verify [id number] 10/14/19 14 10/13/2013 Viraj Mcrae MD MRI Bi- Wrists Verify [id number] 10/14/19 14 10/13/2013 Viraj Mcrae MD MRI Bi- Wrists Verify [id number]-1e3z-s162111uma1p 10/14/19 14 10/13/2013 Viraj Mcrae MD MRI Bi- Wrists Verify [id number] 10/14/19 14 10/13/2013 Viraj Mcrae MD MRI Bi- Wrists Verify [id number]-vqb7-p0wo4uemxu89 10/14/19 14 10/13/2013 Viraj Mcrae MD MRI Bi- Wrists Verify [id number] 10/14/19 14 10/13/2013 Viraj Mcrae MD MRI Bi- Wrists Verify [id number]-53fb-a89vb6w4nmf4 10/14/19 14 10/13/2013 Viraj Mcrae MD MRI Bi- Wrists Verify [id number] 10/14/19 14 10/13/2013 Viraj Mcrae MD MRI Bi- Wrists Verify [id number]-7iee-z764-081e9k842f91 10/14/19 14 10/13/[address] [place] [address] [id number] 10/14/2013 10/14/[address] [place] [address] [id number]-i5vm-95gz-834n-477p123oi5q5 10/14/2013 10/14/2013 [place] [address] [id number]-a09n-16ux-96l4-2827i94o79zz 10/14/2013 10/14/[address] [place] [address] 9uu6m3t7-r90r-9a32-37t8-p58ito2h6u37 10/14/2013 10/14/2013 [place] [address] 968135k2-5828-70dw-1395-07gd6jow0523 10/14/2013 10/14/2013 [place] [address] d32sxwu8-tbcj-21az-1v0q-e74e2bisd58c 10/14/2013 10/14/2013 [place] [address] 3b594w77-4d06-38b2-0vi5-7mj9nnbap166 10/14/2013 10/14/2013 [place] [address] [id number]-k87b-90r9-6k05-077454c717fw 10/14/2013 10/14/2013 [place] [address] a1af05ws-3a69-0a25-c799-3bt947959e95 10/14/2013 10/14/2013 [place] [address] 38yx0s5x-3xn9-9j05-09l0-2v9y2k503s38 10/14/2013 10/14/2013 [place] [address] ytmucu0w-k4se-65qr-myp9-y1m40ml186t2 10/14/2013 10/14/2013 [place] [address] fz90456w-q762-7047-3095-y64jzl652bc8 10/14/2013 10/14/2013 [place] [address] vl8493wp-147j-06l3-5432-486yp45t7n05 10/14/2013 10/14/2013 [place] [address] 35k4cas9-8229-54nu-3441-20672rppmzv1 10/14/2013 10/14/2013 [place] [address] 6je60en6-2i4q-225d-n596-628sb124612x 10/14/2013 10/14/2013 [place] [address] xi434b39-1536-25cx-o67t-hn2025qe6rjw 10/14/2013 10/14/2013 [place] [address] 77684fig-vo1w-4679-5d71-69l0793s50y4 10/14/2013 10/14/2013 [place] [address] 34989888-v605-2413-e58s-023i6bu8e672 10/14/2013 10/14/[address] [place] [address] 1j3232ce-286s-4zzk-01bj-8q8l79n4bwi3 10/14/2013 10/14/2013 [place] [address] 84p8ted0-15mi-3879-2351-036b97b3zr9t 10/14/2013 10/14/2013 [place] [address] 4f4l3034-ye3y-038x-5388-778w61v928v5 10/14/2013 10/14/2013 [place] [address] 9l8m34j0-i772-9q5c-2086-10p5j1bn5ne8 10/14/2013 10/14/2013 [place] [address] b8o551h8-4sgf-70b4-6t27-s335z2le73dq 10/14/2013 10/14/2013 [place] [address] 0ukz9zhz-3jjs-9onx-360c-16dd3u72378l 10/14/2013 10/14/2013 Viraj Mcrae MD UTI f/u 5992o246-4254-6700-9mkt-0745n6542q14 10/16/19 14 10/15/2013 Viraj Mcrae MD UTI f/u 040g58e1-96c4-6s2j-angf-5a445hkozg17 10/16/19 14 10/15/2013 Viraj Mcrae MD UTI f/u 19vb9w1u-302r-9p39-a0b2-c998smn60143 10/16/19 14 10/15/2013 Viraj Mcrae MD UTI f/u q3jg8114-g9da-1k2g-40n5-99s2gpa513ss 10/16/19 14 10/15/2013 Viraj Mcrae MD UTI f/u 2nu672fc-0748-93w3-v7ls-474q4y17xmy9 10/16/19 14 10/15/2013 Viraj Mcrae MD UTI f/u i557887q-997q-6834-7784-30b36v29974m 10/16/19 14 10/15/2013 Viraj Mcrae MD UTI f/u z3ia9725-fy43-057r-zoe3-9h951947uz4c 10/16/19 14 10/15/2013 Viraj Mcrae MD UTI f/u mphup524-2n53-0v9o-s977-8q687b7y9u67 10/16/19 14 10/15/2013 Viraj Mcrae MD UTI f/u 16l97k9p-4bj2-11k7-pi37-55o9082b96p4 10/16/19 14 10/15/2013 Viraj Mcrae MD UTI f/u z583o069-118t-6178-liyl-vv5333vmba55 10/16/19 14 10/15/2013 Viraj Mcrae MD UTI f/u fr257s4f-2uui-7e1k-a6i5-17wst0e52an1 10/16/19 14 10/15/2013 Viraj Mcrae MD UTI f/u 352ay65j-1578-8w37-mi46-10n3d5pl7y9r 10/16/19 14 10/15/2013 Viraj Mcrae MD UTI f/u 9g03sm6f-4915-2980-6821-9l5159q955l0 10/16/19 14 10/15/2013 Viraj Mcrae MD UTI f/u z89q3x54-j1k8-4291-96qr-7918g654z665 10/16/19 14 10/15/2013 Viraj Mcrae MD UTI f/u n77c96oe-38k4-231j-7q25-5160qaa3380t 10/16/19 14 10/15/2013 Viraj Mcrae MD UTI f/u 89zf058p-1o3w-8pt8-0jl8-dg66a702b810 10/16/19 14 10/15/2013 Viraj Mcrae MD UTI f/u yo322o71-gp8j-8328-rf4y-0y001z7z515r 10/16/19 14 10/15/2013 Viraj Mcrae MD UTI f/u 9d9m48f1-7821-6s0v-19o3-j038r5e22959 10/16/19 14 10/15/2013 Viraj Mcrae MD UTI f/u 2268nv11-m0b3-4l5b-m649-83j1a61p0h9j 10/16/19 14 10/15/2013 Viraj Mcrae MD UTI f/u m127g2d4-0e98-7267-z46w-24e6z34nqzi0 10/16/19 14 10/15/2013 Viraj Mcrae MD UTI f/u sjwq4402-u3n4-10eu-73xm-5p18567k091l 10/16/19 14 10/15/2013 Viraj Mcrae MD UTI f/u eax1y9s0-7776-7ah6-30q2-h2802753ks6o 10/16/19 14 10/15/2013 Viraj Mcrae MD UTI f/u 1va4p780-80k0-7nwb-0926-4fb9l2698081 10/16/19 14 10/15/2013 Viraj Mcrae MD UTI f/u 0kri13i2-174e-226b-n3d2-c29ow33z943u 10/16/19 14 10/15/2013 Viraj Mcrae MD study 54yk3m9v-9x35-8995-800t-132u130f7h1f 12/13/2013 12/13/2013 Viraj Mcrae MD study s0hn2700-69ow-2106-0181-8428l3hrh0z0 12/13/2013 12/13/2013 Viraj Mcrae MD study [id number]-i81g-776h52l4919j 12/13/2013 12/13/2013 Viraj Mcrae MD study [id number]-4d0g-q820-ro43138133a1 12/13/2013 12/13/2013 Viraj Mcrae MD study [id number]-xcjq-43ic1o00op99 12/13/2013 12/13/2013 Viraj Mcrae MD study 0dsx439j-261z-7j89-b0kc-7nu85c8q581o 12/13/2013 12/13/2013 Viraj Mcrae MD study 3eh131wz-oor3-261q-127m-194w0hl01872 12/13/2013 12/13/2013 Viraj Mcrae MD study [id number]-zh4d-19wl0862n6r2 12/13/2013 12/13/2013 Viraj Mcrae MD study [id number]-9r19-y396f887396i 12/13/2013 12/13/2013 Viraj Mcrae MD study 8js8gsh9-3kh7-4720-k998-7rc40s762549 12/13/2013 12/13/2013 Viraj Mcrae MD study 7f7a3b2c-7i3k-1611-3536-42251z6s4bhg 12/13/2013 12/13/2013 Viraj Mcrae MD study 6u9k3s76-7r34-6a6n-6r52-9y0632739ayq 12/13/2013 12/13/2013 Viraj Mcrae MD study 139l96au-[id number]-110976hp626v 12/13/2013 12/13/2013 Viraj Mcrae MD study 3c7c1e02-6ej9-55sg-1826-462f69m522g3 12/13/2013 12/13/2013 Viraj Mcrae MD study 2664z7d2-z204-406i-5665-37j96a8gw713 12/13/2013 12/13/2013 Viraj Mcrae MD study h8hdu0x8-435w-3eob-gv0s-018ce3jz7782 12/13/2013 12/13/2013 Viraj Mcrae MD study 262jh7e6-6334-5070-6w8k-aoqgv0v06183 12/13/2013 12/13/2013 Viraj Mcrae MD study tn5667pd-32uj-431g-s5h9-lk9814u31380 12/13/2013 12/13/2013 Viraj Mcrae MD study j266s76a-njlj-8618-3k59-cn70277274r5 12/13/2013 12/13/2013 Viraj Mcrae MD study [id number]-y755-8824z6g0915k 12/13/2013 12/13/2013 Viarj Mcrae MD 1133 PE wo6926mb-2646-90dv-43h9-6e185e33st6i 12/21/19 14 12/20/2013 Viraj Mcrae MD 1133 PE 0h598rz6-1a6n-070s-77w6-1w0rx895o96b 12/21/19 14 12/20/2013 Viraj Mcrae MD 1133 PE 7c525u4q-6sd1-3954-g283-d6h27t313i25 12/21/19 14 12/20/2013 Viraj Mcrae MD 1133 PE d7t61x32-28f1-5762-m1c9-oonr2wum87ye 12/21/19 14 12/20/2013 Viraj Mcrae MD 1133 PE [id number]-9c2n-48e562ebjmq4 12/21/19 14 12/20/2013 Viraj Mcrae MD 1133 PE [id number]-9go8-18j7-8x07574e47mr 12/21/19 14 12/20/2013 Viraj Mcrae MD 1133 PE 5w8n6yqs-mz34-0214-o588-005e1775h006 12/21/19 14 12/20/2013 Viraj Mcrae MD 1133 PE 6mn7nv05-u03j-5625-5w5h-p66152254noe 12/21/19 14 12/20/2013 Viraj Mcrae MD 1133 PE 84s4ky63-d904-4z8z-g81v-979m02205jlo 12/21/19 14 12/20/2013 Viraj Mcrae MD 1133 PE qz685o69-5e05-66kv-p622-70r6hu56m8l1 12/21/19 14 12/20/2013 Viraj Mcrae MD 1133 PE 5d1z42h6-3165-779n-bv7h-zc34w8f90146 12/21/19 14 12/20/2013 Viraj Mcrae MD 1133 PE z379607b-7m7x-6nf6-t11p-30m4v0961tu2 12/21/19 14 12/20/2013 Viraj Mcrae MD 1133 PE 88kgof51-1s3k-2397-b394-5qc6656w3816 12/21/19 14 12/20/2013 Viraj Mcrae MD 2-3 MTH F/U b119xdj4-o989-9avq-t475-t1n685p25f34 01/12/20 14 01/11/2014 Viraj Mcrae MD 2-3 MTH F/U 8o757mq4-551b-3426-1a3v-54upb4t86530 01/12/20 14 01/11/2014 Viraj Mcrae MD 2-3 MTH F/U 2295p096-1o4w-14t5-e9lo-m4bnupj8e65s 01/12/20 14 01/11/2014 Viraj Mcrae MD 2-3 MTH F/U a0vll64b-xr9s-12e3-t049-l230q15q5129 01/12/20 14 01/11/2014 Viraj Mcrae MD 2-3 MTH F/U h0eel76f-3be9-5574-r885-cpn7ea0q6vbn 01/12/20 14 01/11/2014 Viraj Mcrae MD 2-3 MTH F/U 51q6n180-o95p-9610-7u20-cms71r460016 01/12/20 14 01/11/2014 Viraj Mcrae MD 2-3 MTH F/U v485gccu-6nbx-6353-v727-2tc707sj7z3w 01/12/20 14 01/11/2014 Viraj Mcrae MD 2-3 MTH F/U 1k564197-3695-6648-rz26-700758t24p68 01/12/20 14 01/11/2014 Viraj Mcrae MD 2-3 MTH F/U v553sfe3-810q-4y04-808c-6s05u6sh30o6 01/12/20 14 01/11/2014 Viraj Mcrae MD 2-3 MTH F/U 4r9gnnuk-fc63-7k2s-57n1-0n0805647430 01/12/20 14 01/11/2014 Viraj Mcrae MD 2-3 MTH F/U 0yx920v0-767j-6hc9-a150-b71y8j9n1y56 01/12/20 14 01/11/2014 Viraj Mcrae MD 2-3 MTH F/U st083l07-57us-91j1-w850-56h51h21a92d 01/12/20 14 01/11/2014 Viraj Mcrae MD 2-3 MTH F/U 14f8ma88-8w04-020j-xv54-37621558670z 01/12/20 14 01/11/2014 Viraj Mcrae MD 2-3 MTH F/U io8v5252-9586-7i4m-q99c-85717m96x8f2 01/12/20 14 01/11/2014 Viraj Mcrae MD 2-3 MTH F/U 25w7ni4i-7u9i-27n3-ll4y-68d211ql8r74 01/12/20 14 01/11/2014 Viraj Mcrae MD 2-3 MTH F/U ul688372-219l-792d-2v06-2vip4j0z8j00 01/12/20 14 01/11/2014 Viraj Mcrae MD 2-3 MTH F/U 1kom2tg8-8x8e-7t96-0537-r6m721w0v249 01/12/20 14 01/11/2014 Viraj Mcrae MD 2-3 MTH F/U 5fj512f7-4208-5m01-tal1-705ky3q4470g 01/12/20 14 01/11/2014 Viraj Mcrae MD 2-3 MTH F/U 3uy57fb5-687p-23u0-00y5-c9271019a8fv 01/12/20 14 01/11/2014 Viraj Mcrae MD Other- Screen Fail 957r0292-1e11-927e-la7g-51i847xk30l4 01/13/20 14 01/12/2014 Viraj Mcrae MD Other- Screen Fail 7v7zii56-0l65-33vy-2ck9-x83b2q7c954k 01/13/20 14 01/12/2014 Viraj Mcrae MD Other- Screen Fail 3e178763-hp39-74m0-01x7-pd8v731zz82o 01/13/20 14 01/12/2014 Viraj Mcrae MD Other- Screen Fail 862f8p9z-93hp-2408-6wq7-x98904ybv569 01/13/20 14 01/12/2014 Viraj Mcrae MD Other- Screen Fail w6p1ipz6-t918-7208-ld4j-1c9vzd61w9s7 01/13/20 14 01/12/2014 Viraj Mcrae MD Other- Screen Fail 61xxc05o-0e2f-6e37-rr3r-90774g8uv232 01/13/20 14 01/12/2014 Viraj Mcrae MD Other- Screen Fail 420544h5-6761-06to-p4bt-i8i76gdwm595 01/13/20 14 01/12/2014 Viraj Mcrae MD Other- Screen Fail [id number]-90s4-60099172i2hq 01/13/20 14 01/12/2014 Viraj Mcrae MD Other- Screen Fail 7eb63x65-8t1l-2p46-c4lo-12th5371r555 01/13/20 14 01/12/2014 Viraj Mcrae MD Other- Screen Fail mm6115p7-omzq-1kt0-9u07-3zajzlacwpi0 01/13/20 14 01/12/2014 Viraj Mcrae MD Other- Screen Fail 040a62e4-96x4-4rog-e86w-12o7x22722i7 01/13/20 14 01/12/2014 Viraj Mcrae MD Other- Screen Fail 44b5t3l8-4619-0797-742q-my4g0s6cqt7h 01/13/20 14 01/12/2014 Viraj Mcrae MD Other- Screen Fail [id number]-noa0b6609p74 01/13/20 14 01/12/2014 Viraj Mcrae MD Other- Screen Fail 2d888k6x-87d8-5117-9e6g-63c9q939252w 01/13/20 14 01/12/2014 Viraj Mcrae MD Other- Screen Fail 3242xags-3k6m-84528k9r-8457-66ic-snn42163g8j2 01/13/20 14 01/12/2014 Viraj Mcrae MD Other- Screen Fail 2565srx9-b65f-6o70-99y0-0eev18l77648 01/13/20 14 01/12/2014 Viraj Mcrae MD Other- Screen Fail [id number]-7un3-urg0-2p87629it692 01/13/20 14 01/12/2014 Viraj Mcrae MD Other- Screen Fail 66h56a0i-5h62-13z4-u54h-9547fxrl232h 01/13/20 14 01/12/2014 MD Kenny Negro Speaker [id number] 03/08/20 14 03/08/2014 Viraj Mcrae MD [place] Speaker [id number]-1h97-qthd-x36ym1681n90 03/08/20 14 03/08/2014 MD Kenny Negro Speaker [id number]-8xvxhyqe6t47 03/08/20 14 03/08/2014 MD Kenny Negro Speaker [id number]-6j65-w2i2-j0r9w23jm660 03/08/20 14 03/08/2014 Viraj Mcrae MD [place] Speaker [id number] 03/08/20 14 03/08/2014 Viraj Mcrae MD [place] Speaker [id number]-[id number]-ow02t9f96x5g 03/08/20 14 03/08/2014 Viraj Mcrae MD [place] Speaker [id number]-5q4n-h965-ar735p44bq49 03/08/20 14 03/08/2014 Viraj Mcrae MD [place] Speaker [id number] 03/08/20 14 03/08/2014 Viraj Mcrae MD [place] Speaker [id number] 03/08/20 14 03/08/2014 Viraj Mcrae MD [place] Speaker [id number]-[id number] 03/08/20 14 03/08/2014 Viraj Mcrae MD [place] Speaker [id number]-[id number]-p54x28dq1400 03/08/20 14 03/08/2014 Viraj Mcrae MD [place] Speaker [id number] 03/08/20 14 03/08/2014 Viraj Mcrae MD [place] Speaker [id number] 03/08/20 14 03/08/2014 Viraj Mcrae MD [facility] [id number] 03/08/20 14 03/08/2014 Viraj Mcrae MD [facility] [id number] 03/08/20 14 03/08/2014 Viraj Mcrae MD [facility] [id number]-[id number] 03/08/20 14 03/08/2014 Viraj Mcrae MD [facility] [id number] 03/08/20 14 03/08/2014 Viraj Mcrae MD [facility] [id number] 03/16/19 15 03/16/2014 Viraj Mcrae MD [facility] [id number] 03/16/19 15 03/16/2014 Viraj Mcrae MD [facility] [id number] 03/16/19 15 03/16/2014 Viraj Mcrae MD [facility] [id number] 03/16/19 15 03/16/2014 Viraj Mcrae MD [facility] [id number] 03/16/19 15 03/16/2014 Viraj Mcrae MD [facility] [id number] 03/16/19 15 03/16/2014 Viraj Mcrae MD [facility] [id number] 03/16/19 15 03/16/2014 Viraj Mcrae MD [facility] [id number] 03/16/19 15 03/16/2014 Viraj Mcrae MD [facility] [id number] 03/16/19 15 03/16/2014 Viraj Mcrae MD [facility] [id number] 03/16/19 15 03/16/2014 Viraj Mcrae MD [facility] [id number] 03/16/19 15 03/16/2014 Viraj Mcrae MD [facility] [id number] 03/16/19 15 03/16/2014 Viraj Mcrae MD [facility] [id number] 03/16/19 15 03/16/2014 Viraj Mcrae MD [facility] [id number] 03/16/19 15 03/16/2014 Viraj Mcrae MD [facility] [id number] 03/16/19 15 03/16/2014 Viraj Mcrae MD [facility] [id number] 03/16/19 15 03/16/2014 Viraj Mcrae MD [facility] [id number] 03/16/19 15 03/16/2014 Viraj Mcrae MD 2m f/u [id number] 03/21/19 15 03/21/2014 Viraj Mcrae MD 2m f/u [id number] 03/21/19 15 03/21/2014 Viraj Mcrae MD 2m f/u [id number] 03/21/19 15 03/21/2014 Viraj Mcrae MD 2m f/u [id number] 03/21/19 15 03/21/2014 Viraj Mcrae MD 2m f/u [id number] 03/21/19 15 03/21/2014 Viraj Mcrae MD 2m f/u [id number] 03/21/19 15 03/21/2014 Viraj Mcrae MD 2m f/u 80cteq63-pz5y-[id number]-49f9076jlmro 03/21/19 15 03/21/2014 Viraj Mcrae MD f/u [id number] 03/21/19 15 03/21/2014 Viraj Mcrae MD f/u [id number]-[id number] 03/21/19 15 03/21/2014 Viraj Mcrae MD 2m f/u [id number]-981mhvxtu76l 03/21/19 15 03/21/2014 Viraj Mcrae MD 2m f/u [id number]-[id number]-[id number] 03/21/19 15 03/21/2014 Viraj Mcrae MD [facility] 81016j2i-[id number] 03/21/19 15 03/21/2014 Viraj Mcrae MD [facility] [id number]-w6sn-5a5m6g67jl8q 03/21/19 15 03/21/2014 Viraj Mcrae MD [facility] [id number] 03/21/19 15 03/21/2014 Viraj Mcrae MD [facility] [id number]-[id number] 03/21/19 15 03/21/2014 Viraj Mcrae MD [facility] i5l6k6os-s0c4-3345-u0t8-u221j27h6zk7 03/21/19 15 03/21/2014 Viraj Mcrae MD [facility] [id number] 03/21/19 15 03/21/2014 Viraj Mcrae MD [facility] [id number]-l99zs1u2cr30 03/21/19 15 03/21/2014 Viraj Mcrae MD [facility] [id number]-36q4-p71v-[id number] 03/21/19 15 03/21/2014 Viraj Mcrae MD [facility] [id number]-15wj-6j413p4k89zs 03/21/19 15 03/21/2014 Viraj Mcrae MD [facility] [id number]-[id number] 03/21/19 15 03/21/2014 Viraj Mcrae MD [facility] 2cf4ft26-7u21-9xca-j84t-039g3h8enh98 03/21/19 15 03/21/2014 Viraj Mcrae MD 2m f/u [id number]-c902-dd1ezm28b309 03/21/19 15 03/21/2014 Viraj Mcrae MD 2m f/u [id number]-aqp0-986oo53tc176 03/21/19 15 03/21/2014 Viraj Mcrae MD 2m f/u [id number]-n2t32v1m1j23 03/21/19 15 03/21/2014 Viraj Mcrae MD 2m f/u [id number]-2h04-xs94-0c37co03q5o0 03/21/19 15 03/21/2014 Viraj Mcrae MD [facility] [id number]-fgio-j5b6grwk81m0 03/21/19 15 03/21/2014 Vriaj Mcrae MD [facility] 56y86bsh-mu0z-561x-siiv-60jk041br4je 03/21/19 15 03/21/2014 Viraj Mcrae MD [facility] [id number]-i078-37yp-35u8-761ywcu09497 03/21/19 15 03/21/2014 Viraj Mcrae MD Unknown [id number] 05/06/19 15 05/06/2014 Viraj Mcrae MD Unknown [id number] 05/06/19 15 05/06/2014 Viraj Mcrae MD Unknown [id number] 05/06/19 15 05/06/2014 Viraj Mcrae MD Unknown [id number] 05/06/19 15 05/06/2014 Viraj Mcrae MD Unknown [id number] 05/06/19 15 05/06/2014 Viraj Mcrae MD Unknown [id number] 05/06/19 15 05/06/2014 Viraj Mcrae MD Unknown [id number] 05/06/19 15 05/06/2014 Viraj Mcrae MD Unknown [id number] 05/06/19 15 05/06/2014 Viraj Mcrae MD Unknown [id number] 05/06/19 15 05/06/2014 Viraj Mcrae MD Unknown [id number]-cu5dwhbtlzkh 05/06/19 15 05/06/2014 Viraj Mcrae MD Unknown [id number] 05/06/19 15 05/06/2014 Viraj Mcrae MD Unknown [id number] 05/06/19 15 05/06/2014 Viraj Mcrae MD Unknown [id number] 05/06/19 15 05/06/2014 Viraj Mcrae MD Unknown [id number] 05/06/19 15 05/06/2014 Viraj Mcrae MD F/U [id number]-[id number] 06/21/19 15 06/20/2014 Viraj Mcrae MD F/U [id number] 06/21/19 15 06/20/2014 Viraj Mcrae MD F/U [id number]-[id number] 06/21/19 15 06/20/2014 Viraj Mcrae MD F/U [id number] 06/21/19 15 06/20/2014 Viraj Mcrae MD F/U [id number]-u01m-pj94wu4r0z90 06/21/19 15 06/20/2014 Viraj Mcrae MD F/U [id number]-[id number] 06/21/19 15 06/20/2014 Viraj Mcrae MD [facility]/U [id number]-olk7-40x6key46808 06/21/19 15 06/20/2014 Viraj Mcrae MD F/U [id number] 06/21/19 15 06/20/2014 Viraj Mcrae MD [facility]/U [id number]-[id number] 06/21/19 15 06/20/2014 Viraj Mcrae MD F/U [id number] 06/21/19 15 06/20/2014 Viraj Mcrae MD F/U [id number] 06/21/19 15 06/20/2014 Viraj Mcrae MD F/U [id number]-[id number] 06/21/19 15 06/20/2014 Viraj Mcrae MD [facility]/U [id number] 06/21/19 15 06/20/2014 Viraj Mcrae MD F/U [id number]-y278-2522525xafs0 06/21/19 15 06/20/2014 Viraj Mcrae MD MRI [id number] 07/07/2014 07/07/2014 Viraj Mcrae MD MRI [id number] 07/07/2014 07/07/2014 Viraj Mcrae MD MRI [id number] 07/07/2014 07/07/2014 Viraj Mcrae MD MRI [id number] 07/07/2014 07/07/2014 Viraj Mcrae MD MRI [id number] 07/07/2014 07/07/2014 Viraj Mcrae MD MRI [id number] 07/07/2014 07/07/2014 Viraj Mcrae MD MRI [id number] 07/07/2014 07/07/2014 Viraj Mcrae MD MRI [id number]-[id number]-89gv-bf4g2789p893 07/07/2014 07/07/2014 Viraj Mcrae MD MRI [id number] 07/07/2014 07/07/2014 Viraj Mcrae MD MRI [id number] 07/07/2014 07/07/2014 Viraj Mcrae MD [facility] [id number] 07/07/2014 07/07/2014 Viraj Mcrae MD [facility] [id number] 07/07/2014 07/07/2014 Viraj Mcrae MD [facility] [id number] 07/07/2014 07/07/2014 Viraj Mcrae MD [facility] [id number] 07/07/2014 07/07/2014 Viraj Mcrae MD Unknown [id number] 08/06/19 15 08/05/2014 Viraj Mcrae MD Unknown [id number] 08/06/19 15 08/05/2014 Viraj Mcrae MD Unknown [id number] 08/06/19 15 08/05/2014 Viraj Mcrae MD Unknown [id number] 08/06/19 15 08/05/2014 Viraj Mcrae MD Unknown [id number] 08/06/19 15 08/05/2014 Viraj Mcrae MD Unknown [id number] 08/06/19 15 08/05/2014 Viraj Mcrae MD Unknown [id number] 08/06/19 15 08/05/2014 Viraj Mcrae MD Unknown [id number] 08/06/19 15 08/05/2014 Viraj Mcrae MD Unknown [id number] 08/06/19 15 08/05/2014 Viraj Mcrae MD Unknown [id number] 08/06/19 15 08/05/2014 Viraj Mcrae MD Unknown [id number] 08/06/19 15 08/05/2014 Viraj Mcrae MD Unknown [id number] 08/06/19 15 08/05/2014 Viraj Mcrae MD Unknown [id number] 09/20/19 15 09/19/2014 Viraj Mcrae MD Unknown [id number] 09/20/19 15 09/19/2014 Viraj Mcrae MD Unknown [id number] 09/20/19 15 09/19/2014 Viraj Mcrae MD Unknown [id number] 09/20/19 15 09/19/2014 Viraj Mcrae MD Unknown [id number] 09/20/19 15 09/19/2014 Viraj Mcrae MD Unknown [id number] 09/20/19 15 09/19/2014 Viraj Mcrae MD Unknown [id number] 09/20/19 15 09/19/2014 Viraj Mcrae MD Unknown [id number] 09/20/19 15 09/19/2014 Viraj Mcrae MD Unknown [id number] 09/20/19 15 09/19/2014 Viraj Mcrae MD Unknown [id number] 09/20/19 15 09/19/2014 Viraj Mcrae MD Unknown [id number] 09/20/19 15 09/19/2014 Viraj Mcrae MD Unknown [id number] 09/20/19 15 09/19/2014 Viraj Mcrae MD F/U [id number] 10/11/19 15 10/10/2014 Viraj Mcrae MD F/U [id number] 10/11/19 15 10/10/2014 Viraj Mcrae MD F/U [id number] 10/11/19 15 10/10/2014 Viraj Mcrae MD F/U [id number] 10/11/19 15 10/10/2014 Viraj Mcrae MD [facility]/U [id number] 10/11/19 15 10/10/2014 Viraj Mcrae MD [facility]/U [id number] 10/11/19 15 10/10/2014 Viraj Mcrae MD [facility]/U [id number] 10/11/19 15 10/10/2014 Viraj Mcrae MD [facility]/U [id number] 10/11/19 15 10/10/2014 Viraj Mcrae MD [facility]/U [id number] 10/11/19 15 10/10/2014 Viraj Mcrae MD [facility]/U [id number] 10/11/19 15 10/10/2014 Viraj Mcrae MD [facility]/U [id number] 10/11/19 15 10/10/2014 Viraj Mcrea MD [facility]/U [id number] 10/11/19 15 10/10/2014 Viraj Mcrae MD [facility] [id number] 10/11/2014 10/11/2014 Viraj Mcrae MD [facility] [id number] 10/11/2014 10/11/2014 Viraj Mcrae MD [facility] [id number] 10/11/2014 10/11/2014 Viraj Mcrae MD [facility] [id number] 10/11/2014 10/11/2014 Viraj Mcrae MD [facility] [id number] 10/11/2014 10/11/2014 Viraj Mcrae MD [facility] [id number] 10/11/2014 10/11/2014 Viraj Mcrae MD [facility] [id number] 10/11/2014 10/11/2014 Viraj Mcrae MD [facility] [id number] 10/11/2014 10/11/2014 Viraj Mcrae MD [facility] [id number] 10/11/2014 10/11/2014 Viraj Mcrae MD [facility] [id number] 10/11/2014 10/11/2014 Viraj Mcrae MD [place] [id number] 10/11/2014 10/11/2014 Viraj Mcrae MD [facility] [id number] 10/11/2014 10/11/2014 Viraj Mcrae MD [facility] FOll[facility] up [id number] 08/20/10/27/2014 Viraj Mcrae MD MRI and FOllow up [id number] 10/28/19 15 10/27/2014 Viraj Mcrae MD MRI and FOllow up [id number] 10/28/19 15 10/27/2014 Viraj Mcrae MD MRI and FOllow up [id number] 10/28/19 15 10/27/2014 Viraj Mcrae MD MRI and FOllow up [id number] 10/28/19 15 10/27/2014 Viraj Mcrae MD MRI and FOllow up [id number] 10/28/19 15 10/27/2014 Viraj Mcrae MD MRI and FOllow up [id number] 10/28/19 15 10/27/2014 Viraj Mcrae MD MRI and FOllow up [id number] 10/28/19 15 10/27/2014 Viraj Mcrae MD MRI and FOllow up [id number] 10/28/19 15 10/27/2014 Viraj Mcrae MD MRI and FOllow up [id number] 10/28/19 15 10/27/2014 Viraj Mcrae MD MRI and FOllow up [id number] 10/28/19 15 10/27/2014 Viraj Mcrae MD Unknown [id number] 12/01/19 15 11/30/2014 Viraj Mcrae MD Unknown [id number] 12/01/19 15 11/30/2014 Viraj Mcrae MD Unknown [id number] 12/01/19 15 11/30/2014 Viraj Mcrae MD Unknown [id number] 12/01/19 15 11/30/2014 Viraj Mcrae MD Unknown [id number] 12/01/19 15 11/30/2014 Viraj Mcrae MD Unknown [id number] 12/01/19 15 11/30/2014 Viraj Mcrae MD Unknown [id number] 12/01/19 15 11/30/2014 Viraj Mcrae MD Unknown [id number] 12/01/19 15 11/30/2014 Viraj Mcrae MD Unknown [id number] 12/01/19 15 11/30/2014 Viraj Mcrae MD Unknown [id number] 12/01/19 15 11/30/2014 Viraj Mcrae MD Unknown [id number] 12/01/19 15 11/30/2014 Viraj Mcrae MD APT ISSUE [id number] 12/02/19 15 12/01/2014 Viraj Mcrae MD APT ISSUE [id number] 12/02/19 15 12/01/2014 Viraj Mcrae MD APT ISSUE [id number] 12/02/19 15 12/01/2014 Viraj Mcrae MD APT ISSUE [id number] 12/02/19 15 12/01/2014 Viraj Mcrae MD APT ISSUE [id number] 12/02/19 15 12/01/2014 Viraj Mcrae MD APT ISSUE [id number] 12/02/19 15 12/01/2014 Viraj Mcrae MD APT ISSUE [id number] 12/02/19 15 12/01/2014 Viraj Mcrae MD APT ISSUE [id number] 12/02/19 15 12/01/2014 Viraj Mcrae MD APT ISSUE [id number] 12/02/19 15 12/01/2014 Viraj Mcrae MD APT ISSUE [id number] 12/02/19 15 12/01/2014 Viraj Mcrae MD APT ISSUE [id number] 12/02/19 15 12/01/2014 Viraj Mcrae MD left shoulder [id number] 12/08/19 15 12/07/2014 Viraj Mcrae MD left shoulder [id number] 12/08/19 15 12/07/2014 Viraj Mcrae MD left shoulder [id number] 12/08/19 15 12/07/2014 Viraj Mcrae MD left shoulder [id number] 12/08/19 15 12/07/2014 Viraj Mcrae MD left shoulder [id number] 12/08/19 15 12/07/2014 Viraj Mcrae MD left shoulder [id number] 12/08/19 15 12/07/2014 Viraj Mcrae MD left shoulder [id number] 12/08/19 15 12/07/2014 Viraj Mcrae MD left shoulder [id number] 12/08/19 15 12/07/2014 Viraj Mcrae MD left shoulder [id number] 12/08/19 15 12/07/2014 Viraj Mcrae MD left shoulder [id number] 12/08/19 15 12/07/2014 Viraj Mcrae MD left shoulder [id number] 12/08/19 15 12/07/2014 Viraj Mcrae [facility] [id number] Cat Pillai 12/20/2014 12/20/2014 [facility] James Mcrae MD MRI [id number] 12/23/2014 12/23/2014 Viraj Mcrae MD MRI [id number] 12/23/2014 12/23/2014 Viraj Mcrae MD MRI [id number] 12/23/2014 12/23/2014 Viraj Mcrae MD MRI [id number] 12/23/2014 12/23/2014 Viraj Mcrae MD MRI [id number] 12/23/2014 12/23/2014 Viraj Mcrae MD MRI [id number] 12/23/2014 12/23/2014 Viraj Mcrae MD MRI [id number] 12/23/2014 12/23/2014 Viraj Mcrae MD MRI [id number] 12/23/2014 12/23/2014 Viraj Mcrae MD MRI [id number] 12/23/2014 12/23/2014 Viraj Mcrae MD MRI [id number] 12/23/2014 12/23/2014 Viraj Mcrae MD [facility] [id number] 12/23/2014 12/23/2014 Viraj Mcrae MD Refill gabapentin [id number] 05/04/19 16 05/04/2015 Viraj Mcrae MD Refill gabapentin [id number] 05/04/19 16 05/04/2015 Viraj Mcrae MD Refill gabapentin [id number] 05/04/19 16 05/04/2015 Viraj Mcrae MD Refill gabapentin [id number] 05/04/19 16 05/04/2015 Viraj Mcrae MD Refill gabapentin [id number] 05/04/19 16 05/04/2015 Viraj Mcrae MD Refill gabapentin [id number]-[id number] 05/04/19 16 05/04/2015 Viraj Mcrae MD Refill gabapentin [id number] 05/04/19 16 05/04/2015 Viraj Mcrae MD Refill gabapentin [id number] 05/04/19 16 05/04/2015 Viraj Mcrae MD Refill gabapentin [id number] 05/04/19 16 05/04/2015 Viraj Mcrae MD Refill gabapentin [id number] 05/04/19 16 05/04/2015 Viraj Mcrae MD Refill gabapentin [id number]-[id number] 05/04/19 16 05/04/2015 Viraj Mcrae MD RX refill [id number] 06/16/19 16 06/16/2015 Viraj Mcrae MD RX refill [id number] 06/16/19 16 06/16/2015 Viraj Mcrae MD RX refill [id number] 06/16/19 16 06/16/2015 Viraj Mcrae MD RX refill [id number] 06/16/19 16 06/16/2015 Viraj Mcrae MD RX refill [id number] 06/16/19 16 06/16/2015 Viraj Mcrae MD RX refill [id number] 06/16/19 16 06/16/2015 Viraj Mcrae MD RX refill [id number] 06/16/19 16 06/16/2015 Viraj Mcrae MD RX refill [id number] 06/16/19 16 06/16/2015 Viraj Mcrae MD RX refill [id number] 06/16/19 16 06/16/2015 Viraj Mcrae MD RX refill [id number] 06/16/19 16 06/16/2015 Viraj Mcrae MD 3 MTH FU [id number] 06/29/19 16 06/29/2015 Viraj Mcrae MD 3 MTH FU [id number] 06/29/19 16 06/29/2015 Viraj Mcrae MD 3 MTH FU [id number] 06/29/19 16 06/29/2015 Viraj Mcrae MD 3 MTH FU [id number] 06/29/19 16 06/29/2015 Viraj Mcrae MD 3 MTH FU [id number] 06/29/19 16 06/29/2015 Viraj Mcrae MD 3 MTH FU [id number] 06/29/19 16 06/29/2015 Viraj Mcrae MD 3 MTH FU [id number] 06/29/19 16 06/29/2015 Viraj Mcrae MD 3 MTH FU [id number]-rcr9o7n42z3w 06/29/19 16 06/29/2015 Viraj Mcrae MD 3 MTH FU [id number] 06/29/19 16 06/29/2015 Viraj Mcrae MD MRI [id number] 07/05/2015 07/05/2015 Viraj Mcrae MD MRI [id number] 07/05/2015 07/05/2015 Viraj Mcrae MD MRI [id number] 07/05/2015 07/05/2015 Viraj Mcrae MD MRI [id number] 07/05/2015 07/05/2015 Viraj Mcrae MD MRI [id number] 07/05/2015 07/05/2015 Viraj Mcrae MD MRI [id number] 07/05/2015 07/05/2015 Viraj Mcrae MD MRI [id number] 07/05/2015 07/05/2015 Viraj Mcrae MD MRI [id number] 07/05/2015 07/05/2015 Viraj Mcrae MD 3 [facility] [id number] 09/28/19 16 09/28/2015 Viraj Mcrae MD 3 [facility] [id number] 09/28/19 16 09/28/2015 Viraj Mcrae MD 3 [facility] [id number] 09/28/19 16 09/28/2015 Viraj Mcrae MD 3 MTH FU [id number] 09/28/19 16 09/28/2015 Viraj Mcrae MD 3 MTH FU [id number] 09/28/19 16 09/28/2015 Viraj Mcrae MD 3 MTH FU [id number] 09/28/19 16 09/28/2015 Viraj Mcrae MD 3 MTH FU [id number] 09/28/19 16 09/28/2015 Viraj Mcrae MD OV [id number] 10/12/2015 10/12/2015 Viraj Mcrae MD OV [id number] 10/12/2015 10/12/2015 Viraj Mcrae MD OV [id number] 10/12/2015 10/12/2015 Viraj Mcrae MD OV [id number] 10/12/2015 10/12/2015 Viraj Mcrae MD OV [id number] 10/12/2015 10/12/2015 Viraj Mcare MD OV [id number] 10/12/2015 10/12/2015 Viraj Mcrae MD Unknown [id number] 10/13/19 16 10/13/2015 Viraj Mcrae MD Unknown [id number] 10/13/19 16 10/13/2015 Viraj Mcrae MD Unknown [id number] 10/13/19 16 10/13/2015 Viraj Mcrae MD Unknown [id number] 10/13/19 16 10/13/2015 Viraj Mcrae MD Unknown [id number] 10/13/19 16 10/13/2015 Viraj Mcrae MD Unknown [id number] 10/13/19 16 10/13/2015 Viraj Mcrae MD Rt Shoulder Injection [id number] 11/01/2015 11/01/2015 Viraj Mcrae MD Rt Shoulder Injection [id number] 11/01/2015 11/01/2015 Viraj Mcrae MD Rt Shoulder Injection [id number] 11/01/2015 11/01/2015 Viraj Mcrae MD Rt Shoulder Injection [id number] 11/01/2015 11/01/2015 Viraj Mcrae MD LT Shoulder Injection [id number] 11/28/2015 11/28/2015 Viraj Mcrae MD LT Shoulder Injection [id number] 11/28/2015 11/28/2015 Viraj Mcrae MD LT Shoulder Injection [id number] 11/28/2015 11/28/2015 Viraj Mcrae MD LT Shoulder Injection [id number] 02/26/2016 02/26/2016 Viraj Mcrae MD LT Shoulder Injection [id number] 02/26/2016 02/26/2016 Viraj Mcrae MD RT Shoulder Injection [id number] 03/18/2016 03/18/2016 Viraj Mcrae [facility] [place] [facility] [id number] Dulce Covarrubias 12/02/2017 12/03/2017 [facility] [place] [facility] [place] [facility] [id number] Catie Henderson 08/05/2018 09/04/2018 [facility] [place] Procedures No Data Provided for This Section Assessment and Plan No Data Provided for This Section Plan of Care No Data Provided for This Section Social History Social History Date Source Social History ElementQualifiersDate Rep orted Tobacco Use: . Are you a:: never smoker Mar 18, 2016 Marital Status: . Mar 18, 2016 Caffeine: yes. frequency:, 1-5, cups/day Mar 18, 2016 Exercise: no. Mar 18, 2016 Alcohol: no. Mar 18, 2016 03/18/2016 Viraj Mcrae Social History TypeResponse Smoking Status Never smoker; Exposure to Tobacco Smoke None; Cigarette Smoking Last 365 Days No; Reg Smoking Cessation Counseling No entered on: 12/20/14 12/20/2014 [facility] [place] Social History TypeResponse Smoking Status Never smoker; Exposure to Tobacco Smoke None; Cigarette Smoking Last 365 Days No; Reg Smoking Cessation Counseling No entered on: 12/20/14 12/20/2014 [facility] [place] Social History TypeResponse Smoking Status Never smoker; Exposure to Tobacco Smoke None; Cigarette Smoking Last 365 Days No; Reg Smoking Cessation Counseling No 12/20/2014 [facility] Family History Value Date S ource QualifierDescriptionCommentDate Reported Maternal Grandmother Comment not available September 28, 2015 Paternal Grandmother Comment not available September 28, 2015 Siblings Comment not available September 28, 2015 Maternal Grandfather Comment not available September 28, 2015 Children Comment not available September 28, 2015 Father heart attack September 28, 2015 Paternal Grandfather Comment not available September 28, 2015 Mother aneurysm September 28, 2015 Other: Comment not available September 28, 2015 10/12/2015 Viraj Mcrae Advance Directives No Data Provided for This Section Functional Status No Data Provided for This Section
--- OUTSIDE RECORDS SUMMARY | 2019-10-29 11:36 | XMS REPORT ---
Author Author MIKAL Mcrae Organization [employer] Address Unknown Phone Unavailable Care Team Providers Care Night Stocker Name Role Phone James Mcrae CP Unavailable [...] Active Problem Back pain M54.9 Active Medications No Known Medications Results No Known Results Summary Purpose eClinicalWorks Submission
--- OUTSIDE RECORDS SUMMARY | 2019-10-29 11:36 | XMS REPORT ---
Author Author MIKAL Henderson [facility] [employer] Address Unknown Phone Unavailable Care Team Providers Care Morning Caregiver Name Role Phone Catie Henderson Unavailable Allergies, Adverse Reactions, Alerts Substance Reaction Event Type PCN rash Non Drug Allergy Problems Problem Type Condition Code Onset Dates Condition Statu s Assessment Trapezius muscle spasm M62.838 Activ e Problem Rheumatoid arthritis with rh eumatoid factor [...] Date End Date Status Dosage Folic Acid [facility] [address]-98 1 MG Orally Once a day Active 2 tablets Esomeprazole Magnesium [facility] [address]-46 40 MG Orally Once a day Active 1 capsule MethylPREDNISolone [facility] 57348874750 4 Active T REBECCA ONE TABLET BY MOUTH DAILY Tizanidine HCl [facility] [address]-10 4 MG Orally every 8 hrs Active 1 tablet as needed Glimepiride [facility] [address]-87 1 MG Orally Once a day Active 1 tablet with breakfast or the first main meal of the day Hydroxychloroquine Sulfate [facility] 49052149707 200 mg twice a day Active TAKE ONE TABLET BY MOUTH TWICE A DAY WITH FOOD Fenofibrate [facility] [address]-85 54 MG Orally Once a day Active 1 tablet with a meal Losartan Potassium-HCTZ [facility] [address]-43 100-12.5 MG Orally Onc e a day Active 1 tablet Atorvastatin Calcium [facility] [address]-96 10 MG Orally Once a day Active 1 tablet Gabapentin [facility] [address]-19 100 MG Orally once a day Active 2 capsules Ranitidine & Diet Manage Prod NDC 0 150 MG Orally once a day Active as directed Levothyroxine Sodium [facility] [address]-12 75 MCG Orally Once a day Active 1 tablet on an empty stomach in the morning Methotrexate NDC 0 25mg/1mL Subcutaneous Once a week Active 1mL Metformin HCl [facility] [address]-90 500 MG Orally Twice a day Active 1 tablet with meals Paroxetine HCl [facility] [address]-62 20 MG Orally Once a day Active 1 tablet in the morning Atenolol [facility] [address]-43 50 MG Orally twice a day Active 1 tablet BD Allergy Syringe [facility] 09457995765 1 mL Active U SE ONE - DIRECTED WEEKLY Lisinopril [facility] [address]-88 10 mg Orally Once a day Active 1 tablet NIFEdipine [facility] [address]-02 30 MG Orally Once a day Active as directed Vital Signs Date/Time: Dec 30, 2016 BMI 24.05 Index Weight 131.5 lbs Height 62 in Temperature 99.3 F Cardiac Monitoring Heart Rate 72 /min Blood Pressure Diastolic 70 mm Hg Blood Pressure Systolic 140 mm Hg Results No Known Results Summary Purpose eClinicalWorks Submission
--- OUTSIDE RECORDS SUMMARY | 2019-10-29 11:36 | XMS REPORT ---
Author Author MIKAL Timmons Organization [employer] Address Unknown Phone Unavailable Care Team Providers Care Proofer Black [employer] White Name Role Phone Monster Timmons CP Unavailable Allergies, Adverse Reactions, Alerts Substance [...] organ or systems involvement M05.79 Active Assessment Shoulder pain M25.519 Active Problem Trapezius muscle spasm M62.838 Activ e Problem Primary osteoarthritis involving multiple joints M15.0 Active Problem Shoulder pain M25.519 Active Problem Screening for osteoporosis Z13.820 A ctive Problem Arm pain M79.603 Active Problem Subacromial bursitis, right M75.51 Active Problem Back pain M54.9 Active Medications Medication Code System Code Instructions Start Date End Date Status Dosage Carvedilol [facility] 55311474244 25 MG Orally bid Active 1 tablet Fenofibrate ND 35007730684 54 MG Orally Once a day Active 1 tablet with a meal Plaquenil [facility] 17243205999 200 MG Orally once a day Feb 01, 2019 Active take one tablet by mouth twice a day with food of milk Gabapentin [facility] 02325532136 100 MG Orally Twice a day Active 1 capsule Metformin HCl ND 76084000255 500 MG Orally Twice a day Active 1 tablet with meals Tizanidine HCl ND 57236930172 4 MG Orally every 8 hrs Active 1 tablet as needed Paroxetine HCl [facility] 12298784393 20 MG Orally Once a day Active 1 tablet in the morning Methotrexate [facility] 90937459129 2.5mg Orally Once a week Active 6 tablets Folic Acid ND 16358281796 1 MG Orally Once a day Ac tive 2 tablets MethylPREDNISolone [facility] 76826404508 4 MG Orally once a day Active 1 tablet with food or milk Amlodipine Besylate [facility] 80302836977 5 MG Orally bid Active 1 tablet Esomeprazole Magnesium [facility] 43764868809 40 MG Orally bid Active 1 capsule Levothyroxine Sodium [facility] 60473643153 125 MCG Orally Once a day Active 1 tablet on an empty stomach in the morning Vital Signs Date/Time: June 01, 2019 BMI 24.09 Index Weight 127.5 lbs Height 61 in Temperature 98.5 F Cardiac Monitoring Heart Rate 68 /min Blood Pressure Diastolic 66 mm Hg Blood Pressure Systolic 142 mm Hg Results No Known Results Summary Purpose eClinicalWorks Submission
--- OUTSIDE RECORDS SUMMARY | 2019-10-29 11:36 | XMS REPORT ---
Author Author MIKAL Mcrae [facility] eClinicalWorks Address Unknown Phone Unavailable Care Team Providers Care Upstairs Maid Name Role Phone James Mcrae CP Unavailable [...] Instructions Start Date End Date Status Dosage Rheumate [facility] [address]-93 - Orally once a day Dec 30, 2016 Active 1 tabelt Results No Known Results Summary Purpose [employer]ClinicalWorks Submission
--- OUTSIDE RECORDS SUMMARY | 2019-10-29 11:36 | XMS REPORT ---
Author MIKAL Morales [facility] eClinicalWorks Address Unknown Phone Unavailable Care Team Providers Care Print Machine Operator Name Role Phone James Mcrae CP Unavailable Allergies, Adverse Reactions, Alerts Substance Reaction Event Type PCN rash Non Drug Allergy Problems Problem Type Condition Code Onset Dates Condition Statu s Assessment Primary osteoarthritis involving multiple joints M15.0 Active Problem Rheumatoid arthritis with rh eumatoid factor of multiple sites without organ or systems involvement M05.79 Active Assessment Rheumatoid arthritis with rh eumatoid factor of multiple sites without organ or systems involvement M05.79 Active Assessment Long-term use of high-risk medication Z79.899 Active Assessment Back pain M54.9 Active Problem Primary osteoarthritis involving multiple joints M15.0 Active Problem Subacromial bursitis, right M75.51 Active Problem Trapezius muscle spasm M62.838 Activ e Problem Long-term use of high-risk medication Z79.899 Active Problem Arm pain M79.603 Active Problem Back pain M54.9 Active Problem Screening for osteoporosis Z13.820 A ctive Medications Medication Code System Code Instructions Start Date End Date Status Dosage Fenofibrate ND 95753838595 54 MG Orally Once a day Active 1 tablet with a meal Atorvastatin Calcium ND 12274634680 10 MG Orally Once a day Active 1 tablet Gabapentin ND 86989096039 100 MG Orally once a day Active 2 capsules Lisinopril ND 40599822413 10 mg Orally Once a day A ctive 1 tablet Amlodipine Besylate ND 06472450073 5 MG Orally Once a day Active 1 tablet BD Allergy Syringe [facility] 30830031325 1 mL Active U SE ONE - DIRECTED WEEKLY Paroxetine HCl ND 04250035925 20 MG Orally Once a day Active 1 tablet in the morning Methotrexate NDC 0 25mg/1mL Subcutaneous Once a week Active 0.8 cc Levothyroxine Sodium ND 80695764218 75 MCG Orally Once a day Active 1 tablet on an empty stomach in the morning Folic Acid ND 01026528623 1 MG Orally Once a day Ac tive 2 tablets Metformin HCl ND 24263758542 500 MG Orally Twice a day Active 1 tablet with meals Lyrica ND 22602833545 50 MG Orally q day Mar 20, 2017 Acti ve 1 capsule Esomeprazole Magnesium ND 87688811540 40 MG Orally Once a day Active 1 capsule Tizanidine HCl ND 02381829829 4 MG Orally every 8 hrs Active 1 tablet as needed Hydroxychloroquine Sulfate ND 59727807612 200 A ctive TOME MARY TABLETA POR BOCA DOS VECES POR TREVOR WITH FOOD Losartan Potassium-HCTZ ND 73155194888 100-12.5 MG Orally Once a day Active 1 tablet Carvedilol ND 16007963998 25 MG Orally Active as directed Glimepiride ND 16834149354 1 MG Orally Once a day A ctive 1 tablet with breakfast or the first main meal of the day Ranitidine & Diet Manage Prod NDC 0 150 MG Orally once a day Active as directed MethylPREDNISolone ND 73734545114 4 Active T REBECCA ONE TABLET BY MOUTH DAILY Vital Signs Date/Time: Mar 20, 2017 BMI 25.97 Index Weight 133 lbs Height 60 in Temperature 97.4 F Cardiac Monitoring Heart Rate 68 /min Blood Pressure Diastolic 78 mm Hg Blood Pressure Systolic 160 mm Hg Results No Known Results Summary Purpose eClinicalWorks Submission
--- OUTSIDE RECORDS SUMMARY | 2019-10-29 11:36 | XMS REPORT ---
Author Author MIKAL Mcrae Organization eClinicalWorks Address Unknown Phone Unavailable Care Team Providers Care Drill Operator Automatic Name Role Phone James Mcrae CP Unavailable [...] Instructions Start Date End Date Status Dosage MethylPREDNISolone [facility] 91541969495 4 MG Orally once a day Active 1 tablet with food or milk Results No Known Results Summary Purpose eClinicalWorks Submission
--- OUTSIDE RECORDS SUMMARY | 2019-10-29 11:36 | XMS REPORT ---
Author Author MIKAL Henderson Organization eClinicalWorks Address Unknown Phone Unavailable Care Team Providers Care District Sales Coordinator Name Role Phone Catie Henderson Unavailable Allergies, Adverse Reactions, Alerts Substance Reaction Event Type PCN rash Non Drug Allergy Problems Problem Type Condition Code Onset Dates Condition Statu s Assessment Long-term use of high-risk medication Z79.899 Active Assessment Rheumatoid arthritis with rh eumatoid factor of multiple sites without organ or systems involvement M05.79 Active Assessment Subacromial bursitis, right M75.51 Active Problem Subacromial bursitis, right M75.51 Active [...] Start Date End Date Status Dosage Fenofibrate [facility] [address]-28 54 MG Orally Once a day Active 1 tablet with a meal Tizanidine HCl [facility] [address]-99 4 MG Orally every 8 hrs Active 1 tablet as needed Paroxetine HCl [facility] [address]-21 20 MG Orally Once a day Active 1 tablet in the morning Glimepiride [facility] [address]-52 1 MG Orally Once a day Active 1 tablet with breakfast or the first [place] [address]-04 1 MG Orally Once a day Active 2 tablets Losartan Potassium-HCTZ [facility] [address]-56 100-12.5 MG Orally Onc e a day Active 1 [place] [address]-10 30 MG Orally Once a day Active as directed Methotrexate NDC 0 25mg/1mL Subcutaneous Once a week Active 1mL Ranitidine & Diet Manage Prod NDC 0 150 MG Orally once a day Active as directed Gabapentin [facility] 26024795812 300 mg once a day Active 1 capsule Hydroxychloroquine Sulfate [facility] 24630662837 200 mg twice a day Active TAKE ONE TABLET BY MOUTH TWICE A DAY WITH FOOD Esomeprazole Magnesium [facility] [address]-80 40 MG Orally Once a day Active 1 capsule BD Allergy Syringe [facility] 30592142568 1 mL Active U SE ONE - DIRECTED WEEKLY Atenolol [facility] [address]-57 50 MG Orally twice a day Active 1 tablet Atorvastatin Calcium [facility] [address]-13 10 MG Orally Once a day Active 1 tablet Tylenol [facility] [address]-85 325 MG Orally every 6 hrs Active 2 tablets as needed Metformin HCl [facility] [address]-59 500 MG Orally Twice a day Active 1 tablet with meals Levothyroxine Sodium [facility] [address]-24 75 MCG Orally Once a day Active 1 tablet on an empty stomach in the morning Lisinopril [facility] [address]-05 10 mg Orally Once a day Active 1 tablet MethylPREDNISolone [facility] 24001546261 4 mg as needed A ctive 1 tablet Vital Signs Date/Time: September 18, 2016 BMI 23.77 Index Weight 130 lbs Height 62 in Temperature 98.6 F Cardiac Monitoring Heart Rate 64 /min Blood Pressure Diastolic 60 mm Hg Blood Pressure Systolic 132 mm Hg Results No Known Results Summary Purpose eClinicalWorks Submission
--- OUTSIDE RECORDS SUMMARY | 2019-10-29 11:36 | XMS REPORT ---
Author MIKAL Morales [facility] eClinicalWorks Address Unknown Phone Unavailable Care Team Providers Care Lighting Specialist Name Role Phone James Mcrae CP Unavailable [...] organ or systems involvement M05.79 Active Assessment Primary osteoarthritis involving multiple joints M15.0 Active Problem Primary osteoarthritis involving multiple joints M15.0 Active Problem Subacromial bursitis, right M75.51 Active Problem Trapezius muscle spasm M62.838 Activ e Problem Long-term use of high-risk medication Z79.899 Active Problem Arm pain M79.603 Active Problem Back pain M54.9 Active Problem Screening for osteoporosis Z13.820 A ctive Medications Medication Code System Code Instructions Start Date End Date Status Dosage Hydroxychloroquine Sulfate [facility] 26379932919 200 A ctive TOME MARY TABLETA POR BOCA DOS VECES POR TREVOR WITH FOOD Paroxetine HCl ND 62653495944 20 MG Orally Once a day Active 1 tablet in the morning Losartan Potassium-HCTZ ND 04292375923 100-25 MG Orally Once a day Active 1 tablet Carvedilol ND 20871862033 25 MG Orally bid Active 1 tablet MethylPREDNISolone ND 39144124421 4mgv Active T REBECCA ONE TABLET BY MOUTH DAILY Atorvastatin Calcium ND 63490936670 10 MG Orally Once a day Active 1 tablet Esomeprazole Magnesium ND 01207363403 40 MG Orally bid Active 1 capsule Gabapentin ND 71589804652 100 MG Orally once a day Active 2 capsules Amlodipine Besylate ND 84657110167 5 MG Orally bid Active 1 tablet Lyrica ND 60219145680 50 MG Orally Once a day Apr 10, 2017 Active 1 capsule Levothyroxine Sodium [facility] 39294633782 125 MCG Orally Once a day Active 1 tablet on an empty stomach in the morning Methotrexate NDC 0 25mg/1mL Subcutaneous Once a week Active 0.8 cc Metformin HCl [facility] 96037059193 500 MG Orally Twice a day Active 1 tablet with meals Fenofibrate [facility] 27519332526 54 MG Orally Once a day Active 1 tablet with a meal Tizanidine HCl [facility] 08877179564 4 MG Orally every 8 hrs Active 1 tablet as needed Folic Acid [facility] 97352743666 1 MG Orally Once a day Ac tive 2 tablets Vital Signs Date/Time: June 19, 2017 BMI 26.56 Index Weight 136 lbs Height 60 in Temperature 96.1 F Cardiac Monitoring Heart Rate 78 /min Blood Pressure Diastolic 52 mm Hg Blood Pressure Systolic 122 mm Hg Results No Known Results Summary Purpose eClinicalWorks Submission
--- OUTSIDE RECORDS SUMMARY | 2019-10-29 11:36 | XMS REPORT ---
Author Author MIKAL Henderson [facility] eClinicalWorks Address Unknown Phone Unavailable Care Team Providers Care Clinical Product Specialist Name Role Phone Catie Henderson Unavailable Allergies, [...] organ or systems involvement M05.79 Active Assessment Trapezius muscle spasm M62.838 Activ e Assessment Long-term use of high-risk medication Z79.899 [...] Instructions Start Date End Date Status Dosage Tizanidine HCl ND 73950756624 4 MG Orally every 8 hrs Active 1 tablet as needed Fenofibrate ND 90080262900 54 MG Orally Once a day Active 1 tablet with a meal Losartan Potassium-HCTZ ND 75447213444 100-25 MG Orally Once a day Active 1 tablet BD Allergy Syringe ND 43930018541 1 mL Active U SE ONE - DIRECTED WEEKLY Methotrexate Sodium ND 22577156010 50 MG/2ML Acti ve ONE INJECTION OF 1ML (ONE M[place]) [place] ONCE WEEKLY MethylPREDNISolone ND 40007313526 4 MG Active T OME MARY TABLETA POR VIA ORAL CADA MANANA CON COMIDA O LECHE Carvedilol ND 70181631373 25 MG Orally bid Active 1 tablet Folic Acid ND 61814976755 1 MG Orally Once a day Ac tive 2 tablets Levothyroxine Sodium NDC 27904943536 125 MCG Orally Once a day Active 1 tablet on an empty stomach in the morning Paroxetine HCl [facility] 25725874577 20 MG Orally Once a day Active 1 tablet in the morning BD Allergy Syringe [facility] 72610474422 28G X 1/2 Activ e USE ONE - DIRECTED WEEKLY Esomeprazole Magnesium [facility] 16021161407 40 MG Orally bid Active 1 capsule Metformin HCl [facility] 52508877659 500 MG Orally Twice a day Active 1 tablet with meals Gabapentin [facility] 94809192600 100 MG Orally Twice a day Mar 30, 2018 Active 1 capsule Amlodipine Besylate [facility] 82935931777 5 MG Orally bid Active 1 tablet Vital Signs Date/Time: July 16, 2018 BMI 24.24 Index Weight 128.3 lbs Height 61 in Temperature 98.4 F Cardiac Monitoring Heart Rate 64 /min Blood Pressure Diastolic 60 mm Hg Blood Pressure Systolic 120 mm Hg Results No Known Results Summary Purpose eClinicalWorks Submission
--- OUTSIDE RECORDS SUMMARY | 2019-10-29 11:36 | XMS REPORT ---
Author Author MIKAL Mcrae Organization eClinicalWorks Address Unknown Phone Unavailable Care Team Providers Care Mica Washer Gluer Name Role Phone James Mcrae CP Unavailable [...] Instructions Start Date End Date Status Dosage Plaquenil [facility] 80914644677 200 MG Orally bid Feb 01, 2019 Act lul TAKE ONE TABLET BY MOUTH TWICE A DAY WITH FOOD OF MILK Results No Known Results Summary Purpose eClinicalWorks Submission
--- OUTSIDE RECORDS SUMMARY | 2019-10-29 11:36 | XMS REPORT ---
Author Author MIKAL Mcrae Organization eClinicalWorks Address Unknown Phone Unavailable Care Team Providers Care Photographic Engineer Name Role Phone James Mcrae CP Unavailable Allergies No Known Allergies Problems Problem Type Condition Code Onset Dates Condition Statu s Assessment Neck pain M54.2 Active Problem Rheumatoid arthritis with rh eumatoid [...] Instructions Start Date End Date Status Dosage Gabapentin [facility] 86858606444 100 MG Orally Twice a day Mar 30, 2018 Active 1 capsule Results No Known Results Summary Purpose eClinicalWorks Submission
--- OUTSIDE RECORDS SUMMARY | 2019-10-29 11:36 | XMS REPORT ---
Author Author MIKAL Timmons eClinicalWorks Address Unknown Phone Unavailable Care Team Providers Care Rail Car Loader Name Role Phone Monster Timmons CP Unavailable [...] Date End Date Status Dosage Folic Acid [facility] 64615469625 1 MG Orally Once a day Ac tive 2 tablets Gabapentin [facility] 11738708387 100 MG Orally Twice a day Active 1 capsule Metformin HCl ND 13577005593 500 MG Orally Twice a day Active 1 tablet with meals Amlodipine Besylate ND 91341288367 5 MG Orally bid Active 1 tablet Methotrexate ND 95718821810 2.5mg Orally Once a week Active 6 tablets Carvedilol ND 20267210894 25 MG Orally bid Active 1 tablet Paroxetine HCl ND 53599846733 20 MG Orally Once a day Active 1 tablet in the morning Plaquenil [facility] 29134297330 200 MG Orally once a day Feb 01, 2019 Active one tablet with food of milk MethylPREDNISolone [facility] 35926312452 4 MG Orally once a day Active 1 tablet with food or milk Esomeprazole Magnesium ND 57735064801 40 MG Orally bid Active 1 capsule Olmesartan Medoxomil [facility] 28079647736 40 MG Orally Once a day Active 1 tablet Atorvastatin Calcium [facility] 75191501439 40 MG Orally Once a day Active 1 tablet Tizanidine HCl [facility] 44350516944 4 MG Orally every 8 hrs Active 1 tablet as needed Fenofibrate [facility] 79109704555 54 MG Orally Once a day Active 1 tablet with a meal Levothyroxine Sodium [facility] 54533295649 125 MCG Orally Once a day Active 1 tablet on an empty stomach in the morning Hydrochlorothiazide [facility] 79808912093 12.5 MG Orally Once a day Active 1 capsule in the morning Vital Signs Date/Time: July 19, 2019 BMI 24.18 Index Weight 128 lbs Height 61 in Cardiac Monitoring Heart Rate 70 /min Blood Pressure Diastolic 52 mm Hg Blood Pressure Systolic 129 mm Hg Results No Known Results Summary Purpose eClinicalWorks Submission
--- OUTSIDE RECORDS SUMMARY | 2019-10-29 11:36 | XMS REPORT ---
Author Author MIKAL Mcrae Organization eClinicalWorks Address Unknown Phone Unavailable Care Team Providers Care Dental Office Assistant Name Role Phone James Mcrae CP Unavailable [...]
--- OUTSIDE RECORDS SUMMARY | 2019-10-29 11:36 | XMS REPORT ---
Author Author MIKAL Mcrae [facility] eClinicalWorks Address Unknown Phone Unavailable Care Team Providers Care Sticker Operator Name Role Phone James Mcrae CP [...] Date End Date Status Dosage Lyrica [facility] 43425000945 50 MG Orally Once a day Apr 10, 2017 Active 1 capsule Results No Known Results Summary Purpose eClinicalWorks Submission
--- OUTSIDE RECORDS SUMMARY | 2019-10-29 11:36 | XMS REPORT ---
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 Active Assessment Long-term use of high-risk medication Z79.899 Active Assessment Shoulder pain M25.519 Active Assessment Rheumatoid arthritis with rh eumatoid factor of multiple sites without organ or systems involvement M05.79 Active Medications Medication Code System Code Instructions Start Date End Date Status Dosage Levothyroxine Sodium [facility] 93130187689 125 MCG Orally Once a day Active 1 tablet on an empty stomach in the morning Methotrexate ND 12957190467 2.5mg Orally Once a week Active 6 tablets Amlodipine Besylate ND 36310288710 5 MG Orally bid Active 1 tablet Plaquenil ND 64770475983 200 MG Orally once a day Feb 01, 2019 Active take one tablet by mouth twice a day with food of milk Tizanidine HCl ND 71825617823 4 MG Orally every 8 hrs Active 1 tablet as needed MethylPREDNISolone ND 19419817022 4 MG Orally once a day Active 1 tablet with food or milk Folic Acid ND 05682614029 1 MG Orally Once a day Ac tive 2 tablets Metformin HCl ND 31831369426 500 MG Orally Twice a day Active 1 tablet with meals Carvedilol [facility] 43931091659 25 MG Orally bid Active 1 tablet Esomeprazole Magnesium [facility] 69856928344 40 MG Orally bid Active 1 capsule Paroxetine HCl [facility] 29471691978 20 MG Orally Once a day Active 1 tablet in the morning Fenofibrate [facility] 37731706579 54 MG Orally Once a day Active 1 tablet with a meal Gabapentin [facility] 14928814822 100 MG Orally Twice a day Active 1 capsule Vital Signs Date/Time: Apr 19, 2019 BMI 23.85 Index Weight 130.4 lbs Height 62 in Temperature 97.6 F Cardiac Monitoring Heart Rate 76 /min Blood Pressure Diastolic 60 mm Hg Blood Pressure Systolic 142 mm Hg Results No Known Results Summary Purpose eClinicalWorks Submission
--- OUTSIDE RECORDS SUMMARY | 2019-10-29 11:36 | XMS REPORT ---
Author Author MIKAL Mcrae Organization eClinicalWorks Address Unknown Phone Unavailable Care Team Providers Care Centrifugal Drier Operator Name Role Phone James Mcrae CP [...]
--- OUTSIDE RECORDS SUMMARY | 2019-10-29 11:37 | XMS REPORT ---
Author Author MIKAL Brenner [facility] eClinicalWorks Address Unknown Phone Unavailable Care Team Providers Care Vac Press Operator Name Role Phone ElidiaJames escalante Unavailable Allergies, Adverse Reactions, Alerts Substance Reaction Event Type PCN rash Non Drug Allergy Encounters Encounter Location Date [place] Speaker James Mcrae MD Mar 08, 2014 3 MTH FU James Mcrae MD September 28, 2015 MRI James Mcrae MD July 05, 2015 1133 PE James Mcrae MD Dec 20, 2013 Unknown James Mcrae MD August 05, 2014 3M F/U James Mcrae MD June 20, 2014 MRI James Mcrae MD July 07, 2014 REMICADE James Mcrae MD Mar 21, 2014 Unknown James Mcrae MD May 06, 2014 [place] Speaker James Mcrae MD Mar 16, 2014 2m f/u James Mcrae MD Mar 21, 2014 Unknown James Mcrae MD September 19, 2014 [id number] James Mcrae MD Oct 14, 2013 UTI f/u James Mcrae MD Oct 15, 2013 MRI Bi-Wrists Verify James Mcrae MD Oct 13, 2013 study James Mcrae MD Dec 13, 2013 study James Mcrae MD September 03, 2013 Disscuss treatment options James Mcrae MD August 23 4 Disscuss treatment options James Mcrae MD Oct 11, 2013 3M F/U James Mcrae MD Oct 10, 2014 MTX James Mcrae MD Oct 11, 2014 2-3 MTH F/U James Mcrae MD Jan 11, 2014 Other-Screen Fail James Mcrae MD Jan 12, 2014 left shoulder James Mcrae MD Dec 07, 2014 Refill gabapentin James Mcrae MD May 04, 2015 RX refill James Mcrae MD June 16, 2015 3 MTH FU James Mcrae MD June 29, 2015 MRI and FOllow up James Mcrae MD Oct 26, 2014 APT ISSUE James Mcrae MD Dec 01, 2014 Unknown James Mcrae MD Nov 30, 2014 MRI James Mcrae MD Dec 23, 2014 Problems Problem Type Condition ICD-9 Code Onset Dates Condition Statu s Problem Long-term (current) use of other medications - High Ri sk V58.69 Active Problem Pain in joint, upper arm/elbow 719.42 Active Problem Rheumatoid arthritis 714.0 Active Problem Screening for osteoporosis Z13.820 A ctive Problem Long-term use of high-risk medication Z79.899 Active Problem Back pain M54.9 Active Problem Rheumatoid arthritis with rh eumatoid factor of multiple sites without organ or systems involvement M05.79 Active Problem Pain in joint, shoulder region 719.41 Active Problem Arm pain M79.603 Active Problem Spasm of muscle 728.85 Active Assessment Long-term use of high-risk medication Z79.899 Active Assessment Rheumatoid arthritis with rh eumatoid factor of multiple sites without organ or systems involvement M05.79 Active Assessment Back pain M54.9 Active Problem Postmenopausal status (age-related) V49.81 Active Assessment Screening for osteoporosis Z13.820 A ctive Problem Psoriasis 696.1 Active Medications Medication Code System Code Instructions Start Date End Date Status Dosage Methotrexate Unknown 0 25mg/1mL Subcutaneous Once a week Jun Active 1mL Lisinopril [facility] [address]-88 10 mg Orally Once a day Active 1 tablet Gabapentin [facility] 50524459217 100 mg Active TAKE ON E CAPSULE BY MOUTH EVERY NIGHT AT BEDTIME Ranitidine & Diet Manage Prod Unknown 0 150 MG Orally once a day Active as directed Tizanidine HCl [facility] [address]-37 4 MG Orally every 8 hrs Active 1 tablet as needed MethylPREDNISolone [facility] 65941670250 4 mg prn Active TAKE ONE TABLET BY MOUTH EVERY DAY Fenofibrate [facility] [address]-46 54 MG Orally Once a day Active 1 tablet with a meal Atorvastatin Calcium [facility] [address]-81 10 MG Orally Once a day Active 1 tablet NIFEdipine [facility] [address]-64 30 MG Orally Once a day Active as directed Paroxetine HCl [facility] [address]-13 20 MG Orally Once a day Active 1 tablet in the morning Glimepiride [facility] [address]-67 1 MG Orally Once a day Active 1 tablet with breakfast or the first main meal of the day Atenolol [facility] [address]-28 50 MG Orally Once a day Active 1 tablet Folic Acid [facility] [address]-40 1 MG Orally Once a day Active 2 tablets Hydroxychloroquine Sulfate [facility] 05780735372 200 mg Active TAKE ONE TABLET BY MOUTH TWICE A DAY WITH FOOD Levothyroxine Sodium [facility] [address]-44 75 MCG Orally Once a day Active 1 tablet on an empty stomach in the morning Social History Social History Element Qualifiers Date Reported Tobacco Use: . Are you a:: never smoker September 27 Marital Status: . September 28, 2015 Caffeine: yes. frequency:, 1-5, cups/day September 28, 2015 Exercise: no. September 28, 2015 Alcohol: no. September 28, 2015 Family history Qualifier Description Comment Date Reported Maternal Grandmother Comment not available September 28, 2015 Paternal Grandmother Comment not available September 28, 2015 Siblings Comment not available September 27 Maternal Grandfather Comment not available September 28, 2015 Children Comment not available September 27 Father heart attack September 28, 2015 Paternal Grandfather Comment not available September 28, 2015 Mother aneurysm September 28, 2015 Other: Comment not available September 27 Vital Signs Date/Time: September 28, 2015 Weight 155 lbs Height 62 in Temperature 99.2 F Cardiac Monitoring Heart Rate 68 /min Blood Pressure Diastolic 40 mm Hg Blood Pressure Systolic 120 mm Hg Results COMPREHENSIVE METABOLIC PANEL W/EGFR CALCIUM(-8.6-10.4 mg/dL) 9.1 CARBON DIOXIDE(-19-30 mmol/L) 25 ALT(-6-29 U/L) 22 CREATININE(-0.50-0.99 mg/dL) 1.13 AST(-10-35 U/L) 34 eGFR NON-AFR. DOMINICAN(-> OR = 60 mL/min/1.73m2) 51 ALKALINE PHOSPHATASE(-33-130 U/L) 46 eGFR (-> OR = 60 mL/min/1.73m2) 59 BILIRUBIN, TOTAL(-0.2-1.2 mg/dL) 0.4 BUN/CREATININE RATIO(-6-22 (calc)) 28 ALBUMIN/GLOBULIN RATIO(-1.0-2.5 (calc)) 1.6 SODIUM(-135-146 mmol/L) 141 GLOBULIN(-1.9-3.7 g/dL (calc)) 2.4 POTASSIUM(-3.5-5.3 mmol/L) 4.2 GLUCOSE(-65-99 mg/dL) 93 CHLORIDE(-98-110 mmol/L) 106 ALBUMIN(-3.6-5.1 g/dL) 3.9 UREA NITROGEN (BUN)(-7-25 mg/dL) 32 PROTEIN, TOTAL(-6.1-8.1 g/dL) 6.3 SED RATE BY MODIFIED WESTERGREN SED RATE BY MODIFIED WESTERGREN(-< OR = 30 mm/h) 6 C-REACTIVE PROTEIN C-REACTIVE PROTEIN(-<0.80 mg/dL) 0.66 CBC (INCLUDES DIFF/PLT) MCHC(-32.0-36.0 g/dL) 33.1 MCH(-27.0-33.0 pg) 34.5 PLATELET COUNT(-140-400 Thousand/uL) 299 RDW(-11.0-15.0 %) 15.0 BASOPHILS(- %) 0.3 ABSOLUTE NEUTROPHILS(-9307-6448 cells/uL) 3419 ABSOLUTE LYMPHOCYTES(-850-3900 cells/uL) 1346 MPV(-7.5-11.5 fL) 8.6 ABSOLUTE BASOPHILS(-0-200 cells/uL) 16 HEMATOCRIT(-35.0-45.0 %) 34.7 NEUTROPHILS(- %) 64.5 MCV(-80.0-100.0 fL) 104.2 RED BLOOD CELL COUNT(-3.80-5.10 Million/uL) 3.34 ABSOLUTE MONOCYTES(-200-950 cells/uL) 514 ABSOLUTE EOSINOPHILS(-15-500 cells/uL) 5 HEMOGLOBIN(-11.7-15.5 g/dL) 11.5 EOSINOPHILS(- %) 0.1 WHITE BLOOD CELL COUNT(-3.8-10.8 Thousand/uL) 5.3 LYMPHOCYTES(- %) 25.4 MONOCYTES(- %) 9.7 Summary Purpose eClinicalWorks Submission
--- OUTSIDE RECORDS SUMMARY | 2019-10-29 11:37 | XMS REPORT ---
Author Author MIKAL Mcrae [facility] eClinicalWorks Address Unknown Phone Unavailable Care Team Providers Care Wreath Inspector Name Role Phone James Mcrae CP Unavailable Allergies No Known Allergies Problems Problem Type Condition Code Onset Dates Condition Statu s Assessment Rheumatoid arthritis with rh eumatoid factor of multiple sites without organ or systems involvement M05.79 Active Assessment Long-term use of high-risk medication Z79.899 Active Problem Subacromial bursitis, right M75.51 Active [...]
--- OUTSIDE RECORDS SUMMARY | 2019-10-29 11:37 | XMS REPORT ---
Author Author MIKAL Mcrae [facility] eClinicalWorks Address Unknown Phone Unavailable Care Team Providers Care Bank Clerk Name Role Phone James Mcrae CP Unavailable Encounters Encounter Location Date [id number] James Mcrae MD Oct 14, 2013 UTI f/u James Mcrae MD Oct 15, 2013 MRI Bi-Wrists Verify James Mcrae MD Oct 13, 2013 study James Mcrae MD Dec 13, 2013 study James Mcrae MD September 03, 2013 Disscuss treatment options James Mcrae MD August 23 Disscuss treatment options James Mcrae MD Oct 11, 2013 Problems Problem Type Condition ICD-9 Code Onset Dates Condition Statu s Problem Rheumatoid arthritis 714.0 Active Problem Long-term (current) use of other medications - High Ri sk V58.69 Active Problem Pain in joint, upper arm/elbow 719.42 Active Problem Psoriasis 696.1 Active Problem Postmenopausal status (age-related) V49.81 Active Social History Social History Element Qualifiers Date Reported Tobacco Use: . Are you a:: never smoker Oct 11 Marital Status: . Oct 11, 2013 Caffeine: yes. frequency:, 1-5, cups/day Oct 11, 2013 Exercise: no. Oct 11, 2013 Alcohol: no. Oct 11, 2013 Summary Purpose eClinicalWorks Submission
--- OUTSIDE RECORDS SUMMARY | 2019-10-29 11:37 | XMS REPORT ---
Author Author MIKAL Mcrae [facility] eClinicalWorks Address Unknown Phone Unavailable Care Team Providers Care Carousel Operator Name Role Phone James Mcrae CP Unavailable Encounters Encounter Location Date Romans[place] Speaker James Mcrae MD Mar 08, 2014 Unknown James Mcrae MD Oct 13, 2015 3 MTH FU James Mcrae MD September 28, 2015 MRI James Mcrae MD July 05, 2015 1133 PE James Mcrae MD Dec 20, 2013 Unknown James Mcrae MD August 05, 2014 OV James Mcrae MD Oct 12, 2015 3M F/U James Mcrae MD June 20, 2014 MRI James Mcrae MD July 07, 2014 REMICADE James Mcrae MD Mar 21, 2014 Unknown James Mcrae MD May 06, 2014 Romans[place] Speaker James Mcrae MD Mar 16, 2014 2m f/u James Mcrae MD Mar 21, 2014 Unknown James Mcrae MD September 19, 2014 [id number] James Mcrae MD Oct 14, 2013 UTI [...] Active Problem Rheumatoid arthritis 714.0 Active Problem Postmenopausal status (age-related) V49.81 Active Problem Psoriasis 696.1 Active Problem Screening for osteoporosis Z13.820 A ctive Problem Long-term use of high-risk medication Z79.899 Active Problem Back pain M54.9 Active Problem Rheumatoid arthritis with rh eumatoid factor of multiple sites without organ or systems involvement M05.79 Active Problem Pain in joint, shoulder region 719.41 Active Problem Arm pain M79.603 Active Problem Spasm of muscle 728.85 Active Social History Social History Element Qualifiers Date Reported Tobacco Use: . Are you a:: never smoker September 27 016 Marital Status: . September 28, 2015 Caffeine: yes. frequency:, 1-5, cups/day September 28, 2015 Exercise: no. September 28, 2015 Alcohol: no. September 28, 2015 Summary Purpose eClinicalWorks Submission
--- OUTSIDE RECORDS SUMMARY | 2019-10-29 11:37 | XMS REPORT ---
Author Author MIKAL Brenner [facility] eClinicalWorks Address Unknown Phone Unavailable Care Team Providers Care Drawer In Hand Name Role Phone James Brenner Unavailable Allergies, Adverse Reactions, Alerts Substance Reaction Event Type PCN Info Not Available Non Drug Allergy Encounters Encounter Location Date [id number] James Mcrae MD Oct 14, 2013 UTI f/u James Mcrae MD Oct 15, 2013 MRI Bi-Wrists Verify James Mcrae MD Oct 13, 2013 study James Mcrae MD Dec 13, 2013 study James Mcrae MD September 03, 2013 Disscuss treatment options James Mcrae MD August 23 4 Disscuss treatment options James Mcrae MD Oct 11, 2013 2-3 MTH F/U James Mcrae MD Jan 11, 2014 Problems Problem Type Condition ICD-9 Code Onset Dates Condition Statu s Assessment Screening for depression V79.0 Act lul Assessment Pain in joint, shoulder region 719.41 Active Assessment Pain, back 724.5 Active Assessment Fibromyalgia 729.1 Active Problem Rheumatoid arthritis 714.0 Active Problem Long-term (current) use of other medications - High Ri sk V58.69 Active Problem Pain in joint, upper arm/elbow 719.42 Active Assessment Rheumatoid arthritis 714.0 Active Assessment Sacroiliitis, not elsewhere classified 720.2 Active Problem Psoriasis 696.1 Active Problem Postmenopausal status (age-related) V49.81 Active Medications Medication Code System Code Instructions Start Date End Date Status Dosage Paroxetine HCl [facility] [address]-86 20 MG Orally Once a day Active 1 tablet in the morning Atorvastatin Calcium [facility] [address]-23 10 MG Orally Once a day Active 1 tablet MethylPREDNISolone [facility] [address]-21 4 Active TAKE ONE TABLET BY MOUTH EVERY DAY Folic Acid [facility] [address]-98 1 MG Orally Once a day Active 1 tablet Glimepiride [facility] [address]-75 1 MG Orally Once a day Active 1 tablet with breakfast or the first main meal of the day Fenofibrate [facility] [address]-79 54 MG Orally Once a day Active 1 tablet with a meal Tramadol-Acetaminophen [facility] [address]-65 37.5-325 MG Orally four times a day Active 1 tablets as nee ded Lisinopril [facility] [address]-16 Orally Once a day Act lul 1 tablet Levothyroxine Sodium [facility] [address]-94 88 MCG Orally Once a day Active 1 tablet on an empty stomach in the morning Ranitidine & Diet Manage Prod Unknown 0 150 MG Orally Active as directed Atenolol [facility] [address]-80 50 MG Orally Once a day Active 1 tablet NIFEdipine [facility] [address]-30 30 MG Orally Active as directed Cyclobenzaprine HCl [facility] [address]-39 10 MG Orally Three times a day Active 1 tablet Methotrexate [facility] 24048721369 2.5 Orally once a week Active 8 tablets Social History Social History Element Qualifiers Date Reported Tobacco Use: . Are you a:: never smoker Jan 11 Marital Status: . Jan 11, 2014 Caffeine: yes. frequency:, 1-5, cups/day Jan 11, 2014 Exercise: no. Jan 11, 2014 Alcohol: no. Jan 11, 2014 Vital Signs Date/Time: Jan 11, 2014 Weight 153 lbs Height 62 in Temperature 98.8 F Cardiac Monitoring Heart Rate 70 /min Blood Pressure Diastolic 84 mm Hg Blood Pressure Systolic 128 mm Hg Immunizations Vaccine Administration Date Toradol Jan 11, 2014 Summary Purpose eClinicalWorks Submission
--- OUTSIDE RECORDS SUMMARY | 2019-10-29 11:37 | XMS REPORT ---
Author Author MIKAL Henderson [facility] eClinicalWorks Address Unknown Phone Unavailable Care Team Providers Care Digital Strategist Name Role Phone Catie Henderson Unavailable Allergies, Adverse Reactions, Alerts Substance Reaction Event Type PCN rash Non Drug Allergy Encounters Encounter Location Date [place]i Speaker James Mcrae MD Mar 08, 2014 Unknown James Mcrae MD Oct 13, 2015 3 MTH FU James Mcrae MD September 28, 2015 MRI James Mcrae MD July 05, 2015 LT Shoulder Injection James Mcrae MD Nov 28, 2015 1133 PE James Mcrae MD Dec 20, 2013 LT Shoulder Injection James Mcrae MD Feb 26, 2016 Unknown James Mcrae MD August 05, 2014 OV James Mcrae MD Oct 12, 2015 3M F/U James Mcrae MD June 20, 2014 Rt Shoulder Injection Jaems Mcrae MD Nov 01, 2015 MRI James Mcrae MD July 07, 2014 REMICADE James Mcrae MD Mar 21, 2014 Unknown James Mcrae MD May 06, 2014 RT Shoulder Injection James Mcrae MD Mar 18, 2016 [place] Speaker James Mcrae MD Mar 16, 2014 2m f/u James Mcrae MD Mar 21, 2014 Unknown James Mcrae MD September 19, 2014 [id number] James Mcrae MD Oct 14, 2013 UTI [...] use of high-risk medication Z79.899 Active Assessment Subacromial bursitis, right M75.51 Active Problem Back pain M54.9 Active Problem Screening for osteoporosis Z13.820 A ctive Problem Subacromial bursitis, right M75.51 Active Problem Rheumatoid arthritis with rh eumatoid factor of multiple sites without organ or systems involvement M05.79 Active Assessment Rheumatoid arthritis with rh eumatoid factor of multiple sites without organ or systems involvement M05.79 Active Problem Long-term use of high-risk medication Z79.899 Active Problem Arm pain M79.603 Active Medications Medication Code System Code Instructions Start Date End Date Status Dosage [facility] [address]-75 30 MG Orally Once a day Active as directed Fenofibrate [facility] [address]-94 54 MG Orally Once a day Active 1 tablet with a meal Losartan Potassium-HCTZ [facility] [address]-01 100-12.5 MG Orally O nce a day Active 1 tablet Paroxetine HCl [facility] [address]-28 20 MG Orally Once a day Active 1 tablet in the morning MethylPREDNISolone [facility] 45526535090 4 mg prn Active TAKE ONE TABLET BY MOUTH EVERY DAY Tizanidine HCl [facility] [address]-97 4 MG Orally every 8 hrs Active 1 tablet as needed Gabapentin [facility] 75906027172 300 Active TAKE ONE CAPSULE BY MOUTH EVERY NIGHT AT BEDTIME Metformin HCl [facility] [address]-67 500 MG Orally Twice a day Active 1 tablet with meals Ranitidine & Diet Manage Prod Unknown 0 150 MG Orally once a day Active as directed Glimepiride [facility] [address]-63 1 MG Orally Once a day Active 1 tablet with breakfast or the first main meal of the day Folic Acid [facility] [address]-73 1 MG Orally Once a day Active 2 tablets Methotrexate Unknown 0 25mg/1mL Subcutaneous Once a week Jun Active 1mL Levothyroxine Sodium [facility] [address]-22 75 MCG Orally Once a day Active 1 tablet on an empty stomach in the morning Hydroxychloroquine Sulfate [facility] 22313899244 200 mg Active TAKE ONE TABLET BY MOUTH TWICE A DAY WITH FOOD Atorvastatin Calcium [facility] [address]-97 10 MG Orally Once a day Active 1 tablet Atenolol [facility] [address]-32 50 MG Orally twice a day Active 1 tablet Lisinopril [facility] [address]-10 10 mg Orally Once a day Active 1 tablet Social History Social History Element Qualifiers Date Reported Tobacco Use: . Are you a:: never smoker Mar 18 Marital Status: . Mar 18, 2016 Caffeine: yes. frequency:, 1-5, cups/day Mar 18, 2016 Exercise: no. Mar 18, 2016 Alcohol: no. Mar 18, 2016 Vital Signs Date/Time: Mar 18, 2016 Weight 140.3 lbs Height 61.5 in Temperature 97.5 F Cardiac Monitoring Heart Rate 70 /min Blood Pressure Diastolic 66 mm Hg Blood Pressure Systolic 122 mm Hg Summary Purpose eClinicalWorks Submission
--- OUTSIDE RECORDS SUMMARY | 2019-10-29 11:37 | XMS REPORT ---
Author Author MIKAL Henderson [facility] eClinicalWorks Address Unknown Phone Unavailable Care Team Providers Care Twenty One Dealer Name Role Phone Catie Henderson Unavailable Allergies, [...] organ or systems involvement M05.79 Active Assessment Neck pain M54.2 Active Assessment Long-term use of high-risk medication [...] Instructions Start Date End Date Status Dosage Esomeprazole Magnesium ND 71925983131 40 MG Orally bid Active 1 capsule Gabapentin ND 42058050362 100 MG Orally once a day Active 2 capsules Tizanidine HCl ND 36701668284 4 MG Orally every 8 hrs Active 1 tablet as needed Amlodipine Besylate ND 63508988223 5 MG Orally bid Active 1 tablet Gabapentin ND 19297949068 100 MG Orally Twice a day Mar 30, 2018 Active 1 capsule BD Allergy Syringe ND 21637186986 1 mL Active U SE ONE - DIRECTED WEEKLY Metformin HCl ND 25978256034 500 MG Orally Twice a day Active 1 tablet with meals Methotrexate NDC 0 25mg/1mL Subcutaneous Once a week Dec 31 018 Active 1mL Folic Acid ND 51011838000 1 MG Orally Once a day Ac [place] 2 [place] [address]-56 800 MG Orally Once a day Active 1 tablet with food or milk as needed Tylenol#3 NDC 0 300-30 MG Orally Once a day Ac tive 1 tablet Paroxetine HCl ND 13235281950 20 MG Orally Once a day Active 1 tablet in the morning Levothyroxine Sodium ND 73833937432 125 MCG Orally Once a day Active 1 tablet on an empty stomach in the morning Losartan Potassium-HCTZ ND 56579160313 100-25 MG Orally Once a day Active 1 tablet MethylPREDNISolone [facility] 78562286105 4 MG Active T OME MARY TABLETA POR VIA ORAL CADA MANANA CON COMIDA O LECHE Atorvastatin Calcium ND 51006201676 10 MG Orally Once a day Active 1 tablet Hydroxychloroquine Sulfate [facility] 90298075791 200 MG Active TOME MARY TABLETA POR BOCA DOS VECES POR TREVOR WITH FOOD Lyrica [facility] 96652009624 50 MG Orally Once a day Apr 10, 2017 Active 1 capsule Carvedilol [facility] 39028683167 25 MG Orally bid Active 1 tablet Fenofibrate [facility] 89518872304 54 MG Orally Once a day Active 1 tablet with a meal Vital Signs Date/Time: Mar 30, 2018 BMI 25 Index Weight 131.4 lbs Height 61 in Temperature 98.2 F Cardiac Monitoring Heart Rate 64 /min Blood Pressure Diastolic 60 mm Hg Blood Pressure Systolic 140 mm Hg Results No Known Results Summary Purpose eClinicalWorks Submission
--- OUTSIDE RECORDS SUMMARY | 2019-10-29 11:37 | XMS REPORT ---
Author Author MIKAL Mcrae Organization eClinicalWorks Address Unknown Phone Unavailable Care Team Providers Care Corn Sheller Name Role Phone James Mcrae CP Unavailable [...]
--- OUTSIDE RECORDS SUMMARY | 2019-10-29 11:37 | XMS REPORT ---
Author Author MIKAL Mcrae [facility] eClinicalWorks Address Unknown Phone Unavailable Care Team Providers Care Punchboard Inserter Name Role Phone James Mcrae CP Unavailable Encounters Encounter Location Date Nepali Speaker James Mcrae MD Mar 08, 2014 [...] Unknown James Mcrae MD May 06, 2014 Nepali Speaker James Mcrae MD Mar 16, 2014 2m f/u James Mcrae MD Mar 21, 2014 Unknown James Mcrae MD September 19, 2014 [id number] James Mcrae MD Oct 14, 2013 UTI [...]
--- OUTSIDE RECORDS SUMMARY | 2019-10-29 11:37 | XMS REPORT ---
Author Author MIKAL Mcrae [facility] eClinicalWorks Address Unknown Phone Unavailable Care Team Providers Care Celery Wrapper Name Role Phone James Mcrae CP Unavailable Encounters Encounter Location Date [id number] James Mcrae MD Oct 14, 2013 UTI f/u James Mcrae MD Oct 15, 2013 study James Mcrae MD September 03, [...]
--- OUTSIDE RECORDS SUMMARY | 2019-10-29 11:37 | XMS REPORT ---
Author Author MIKAL Mcrae [facility] eClinicalWorks Address Unknown Phone Unavailable Care Team Providers Care Creative Services Director Name Role Phone James Mcrae CP Unavailable Encounters Encounter Location Date [id number] James Mcrae MD Oct 14, 2013 UTI f/u James Mcrae MD Oct 15, 2013 MRI Bi-Wrists Verify James Mcrae MD Oct 13, 2013 study James Mcrae MD September [...]
--- OUTSIDE RECORDS SUMMARY | 2019-10-29 11:37 | XMS REPORT ---
Author Author MIKAL Mcrae [facility] eClinicalWorks Address Unknown Phone Unavailable Care Team Providers Care Equipment Monitor Phototypesetting Name Role Phone James Mcrae CP Unavailable [...]
--- OUTSIDE RECORDS SUMMARY | 2019-10-29 11:37 | XMS REPORT ---
Author Author MIKAL Brenner [facility] eClinicalWorks Address Unknown Phone Unavailable Care Team Providers Care Supervisor Dry Cleaning Name Role Phone James Brenner Unavailable Encounters Encounter Location Date [place] Speaker James Mcrae MD Mar 08, 2014 1133 PE James Mcrae MD Dec 20, 2013 Unknown James Mcrae MD August 05, 2014 3M F/U James Mcrae MD June 20, 2014 MRI James Mcrae MD July 07, 2014 REMICADE James Mcrae MD Mar 21, 2014 Unknown James Mcrae MD May 06, 2014 [place] Speaker James Mcrae MD Mar 16, 2014 2m f/u James Mcrae MD Mar 21, 2014 Unknown James Mcrae MD September 19, 2014 [id number] James Mcrae MD Oct 14, 2013 UTI [...] gabapentin James Mcrae MD May 04, 2015 MRI and FOllow up James Mcrae MD Oct 26, 2014 APT ISSUE James Mcrae MD Dec 01, 2014 Unknown James Mcrae MD Nov 30, 2014 MRI James Mcrae MD Dec 23, 2014 Problems Problem Type Condition ICD-9 Code Onset Dates Condition Statu s Problem Postmenopausal status (age-related) V49.81 Active Problem Long-term (current) use of other medications - High Ri sk V58.69 Active Problem Psoriasis 696.1 Active Problem Arm pain M79.603 Active Problem Spasm of muscle 728.85 Active Problem Long-term use of high-risk medication Z79.899 Active Problem Pain in joint, upper arm/elbow 719.42 Active Problem Rheumatoid arthritis 714.0 Active Problem Rheumatoid arthritis with rh eumatoid factor of multiple sites without organ or systems involvement M05.79 Active Problem Pain in joint, shoulder region 719.41 Active Medications Medication Code System Code Instructions Start Date End Date Status Dosage Gabapentin MEDISPAN 75065569892 300mg Orally Active qh s Social History Social History Element Qualifiers Date Reported Tobacco Use: . Are you a:: never smoker Mar 30 Marital Status: . Mar 30, 2015 Caffeine: yes. frequency:, 1-5, cups/day Mar 30, 2015 Exercise: no. Mar 30, 2015 Alcohol: no. Mar 30, 2015 Summary Purpose eClinicalWorks Submission
--- OUTSIDE RECORDS SUMMARY | 2019-10-29 11:37 | XMS REPORT ---
Author Author MIKAL Mcrae eClinicalWorks Address Unknown Phone Unavailable Care Team Providers Care Senior Ssis Developer Name Role Phone James Mcrae CP Unavailable Encounters Encounter Location Date [id number] James Mcrae MD Oct 14, 2013 UTI f/u James Mcrae MD Oct 15, 2013 MRI Bi-Wrists Verify James Mcrae MD Oct 13, 2013 study James Mcrae MD Dec 13, 2013 study James Mcrae MD September 03, 2013 [place] Speaker James Mcrae MD Mar 16, 2014 Disscuss treatment options James Mcrae MD August 23 4 Disscuss treatment options James Mcrae MD Oct 11, 2013 [place] Speaker James Mcrae MD Mar 08, 2014 2-3 MTH F/U James Mcrae MD Jan 11, 2014 Other-Screen Fail James Mcrae MD Jan 12, 2014 Problems Problem Type Condition ICD-9 Code [...] . Are you a:: never smoker Mar 14 Marital Status: . Mar 14, 2014 Caffeine: yes. frequency:, 1-5, cups/day Mar 14, 2014 Exercise: no. Mar 14, 2014 Alcohol: no. Mar 14, 2014 Summary Purpose eClinicalWorks Submission
--- OUTSIDE RECORDS SUMMARY | 2019-10-29 11:37 | XMS REPORT ---
Author Author MIKAL Brenner [facility] eClinicalWorks Address Unknown Phone Unavailable Care Team Providers Care Tripe Scraper Name Role Phone ElidiaJames CP Unavailable Allergies, Adverse Reactions, Alerts Substance Reaction Event Type PCN rash Non Drug Allergy Encounters Encounter Location Date [place] Speaker James Mcrae MD Mar 08, 2014 1133 PE James Mcrae MD Dec 20, 2013 Unknown James Mcrae MD August 05, 2014 3M F/U James Mcrae MD June 20, 2014 MRI James Mcrae MD July 07, 2014 REMICADE James Mcrae MD Mar 21, 2014 Unknown James Mcrae MD May 06, 2014 [place] Speaker James Mcrae MD Mar 16, 2014 2m f/u James Mcrae MD Mar 21, 2014 Unknown James Mcrae MD September 19, 2014 [id number] James Mcrae MD Oct 14, 2013 UTI [...] Code Onset Dates Condition Statu s Problem Psoriasis 696.1 Active Problem Rheumatoid arthritis 714.0 Active Problem Long-term (current) use of other medications - High Ri sk V58.69 Active Problem Long-term use of high-risk medication Z79.899 Active Problem Arm pain M79.603 Active Problem Screening for osteoporosis Z13.820 A ctive Problem Pain in joint, shoulder region 719.41 Active Problem Pain in joint, upper arm/elbow 719.42 Active Problem Spasm of muscle 728.85 Active Problem Rheumatoid arthritis with rh eumatoid factor of multiple sites without organ or systems involvement M05.79 Active Assessment Screening for osteoporosis Z13.820 A ctive Assessment Long-term use of high-risk medication Z79.899 Active Assessment Rheumatoid arthritis with rh eumatoid factor of multiple sites without organ or systems involvement M05.79 Active Problem Postmenopausal status (age-related) V49.81 Active Medications Medication Code System Code Instructions Start Date End Date Status Dosage N[facility]Edipine [facility] [address]-14 30 MG Orally Once a day Active as directed Ranitidine & Diet Manage Prod Unknown 0 150 MG Orally once a day Active as directed MethylPREDNISolone [facility] 64205603562 4 Active 1/2 tab daily x 4wks, then 1/2 tab QOD if tolerated. Fenofibrate [facility] [address]-60 54 MG Orally Once a day Active 1 tablet with a meal Hydroxychloroquine Sulfate [facility] 91613422080 200 Active TAKE ONE TABLET BY MOUTH TWICE A DAY WITH FOOD Levothyroxine Sodium [facility] [address]-30 88 MCG Orally Once a day Active 1 tablet on an empty stomach in the morning Gabapentin [facility] 91146794442 100 Active TAKE ONE CAPSULE BY MOUTH DAILY FOR 3 DAYS THEN TAKE TWO CAPSULES BY MOUTH DAILY FOR 3 DAYS THEN TAKE THREE CAPSULES BY MOUTH DAILY BD Allergy Syringe [facility] 57893817133 1 mL Active ONE - DIRECTED WEEKLY Folic Acid [facility] [address]-94 1 MG Orally Once a day Active 2 tablets Tramadol-Acetaminophen [facility] [address]-99 37.5-325 MG Orally four times a day Active 1 tablets as nee ded Lisinopril [facility] [address]-86 Orally Once a day Act lul 1 tablet Atorvastatin Calcium [facility] [address]-17 10 MG Orally Once a day Active 1 tablet Methotrexate Unknown 0 25mg/1mL Subcutaneous Once a week Jun Active 0.8mL Glimepiride [facility] [address]-30 1 MG Orally Once a day Active 1 tablet with breakfast or the first main meal of the day Paroxetine HCl [facility] [address]-58 20 MG Orally Once a day Active 1 tablet in the morning Atenolol [facility] [address]-59 50 MG Orally Once a day Active 1 tablet Social History Social History Element Qualifiers Date Reported Tobacco Use: . Are you a:: never smoker June 29, 2015 Marital Status: . June 29, 2015 Caffeine: yes. frequency:, 1-5, cups/day June Exercise: no. June 29, 2015 Alcohol: no. June 29, 2015 Vital Signs Date/Time: June 29, 2015 Weight 150 lbs Height 62 in Temperature 98.3 F Cardiac Monitoring Heart Rate 70 /min Blood Pressure Diastolic 70 mm Hg Blood Pressure Systolic 138 mm Hg Summary Purpose eClinicalWorks Submission
--- OUTSIDE RECORDS SUMMARY | 2019-10-29 11:37 | XMS REPORT ---
Author Author MIKAL cMrae Organization eClinicalWorks Address Unknown Phone Unavailable Care Team Providers Care Casting Technician Name Role Phone James Mcrae CP Unavailable [...]
--- OUTSIDE RECORDS SUMMARY | 2019-10-29 11:37 | XMS REPORT ---
Author Author MIKAL Brenner [facility] eClinicalWorks Address Unknown Phone Unavailable Care Team Providers Care Transitional Nurse Name Role Phone James Brenner Unavailable Allergies, Adverse Reactions, Alerts Substance Reaction Event Type PCN rash Non Drug Allergy Encounters Encounter Location Date [id number] James Mcrae MD Oct 14, 2013 UTI f/u James Mcrae MD Oct 15, 2013 MRI Bi-Wrists Verify James Mcrae MD Oct 13, 2013 study James Mcrae MD Dec 13, 2013 study James Mcrae MD September 03, 2013 Disscuss treatment options James Mcrae MD August 23 4 Disscuss treatment options James Mcrae MD Oct 11, 2013 [place] Speaker James Mcrae MD Mar 08, 2014 3M F/U James Mcrae MD Oct 10, 2014 MTX James Mcrae MD Oct 11, 2014 2-3 MTH F/U James Mcrae MD Jan 11, 2014 Other-Screen Fail James Mcrae MD Jan 12, 2014 1133 PE James Mcrae MD Dec 20, 2013 Unknown James Mcrae MD August 05, 2014 3M F/U James Mcrae MD June 20, 2014 MRI James Mcrae MD July 07, 2014 REMICADE James Mcrae MD Mar 21, 2014 Unknown James Mcrae MD May 06, 2014 [place] Speaker James Mcrae MD Mar 16, 2014 2m f/u James Mcrae MD Mar 21, 2014 Unknown James Mcrae MD September 19, 2014 Problems Problem Type Condition ICD-9 Code Onset Dates Condition Statu s Assessment Fibromyalgia 729.1 Active Problem Rheumatoid arthritis 714.0 Active Problem Long-term (current) use of other medications - High Ri sk V58.69 Active Problem Pain in joint, upper arm/elbow 719.42 Active Assessment Rheumatoid arthritis 714.0 Active Assessment Long-term (current) use of other medications - High Ri V58.69 Active Problem Psoriasis 696.1 Active Problem Postmenopausal status (age-related) V49.81 Active Medications Medication Code System Code Instructions Start Date End Date Status Dosage Folic [facility] [address]-05 1 MG Orally Once a day Active 2 tablets Atenolol [facility] [address]-75 50 MG Orally Once a day Active 1 tablet Levothyroxine Sodium [facility] [address]-85 88 MCG Orally Once a day Active 1 tablet on an empty stomach in the morning Cyclobenzaprine HCl [facility] [address]-67 10 MG Orally Three times a day Active 1 tablet Methotrexate [facility] 82434335186 2.5 Inactive TAKE 8 TABLETS BY MOUTH ONCE WEEKLY Lisinopril [facility] [address]-30 Orally Once a day Act lul 1 tablet Atorvastatin Calcium [facility] [address]-74 10 MG Orally Once a day Active 1 tablet Glimepiride [facility] [address]-33 1 MG Orally Once a day Active 1 tablet with breakfast or the first main meal of the day Ranitidine & Diet Manage Prod Unknown 0 150 MG Orally once a day Active as directed NIFEdipine [facility] [address]-42 30 MG Orally Once a day Active as directed Gabapentin [facility] [address]-77 100 MG Orally qhs Oct 10, 2014 Active 1 cap daily 3 day, 2 cap daily x 3 day and then take 3 caps daily MethylPREDNISolone [facility] 00380121835 4 Once a day Ac tive 1 tablet Hydroxychloroquine Sulfate [facility] [address]-54 200 MG Orally twice a day June 20, 2014 Oct 18, 2014 Active 1 tablet with food o r milk Tramadol-Acetaminophen [facility] [address]-75 37.5-325 MG Orally four times a day Active 1 tablets as nee ded Nitrofurantoin Monohyd Macro [facility] [address]-70 100 MG Oral ly every 12 hrs Active 1 capsule with food Rasuvo [facility] [address]-35 20 MG/0.4ML Subcutaneous once a w paimiut Oct 10, 2014 Feb 07, 2015 Active 0.4 ml Fenofibrate [facility] [address]-84 54 MG Orally Once a day Active 1 tablet with a meal Paroxetine HCl [facility] [address]-47 20 MG Orally Once a day Active 1 tablet in the morning Social History Social History Element Qualifiers Date Reported Tobacco Use: . Are you a:: never smoker Oct 10 Marital Status: . Oct 10, 2014 Caffeine: yes. frequency:, 1-5, cups/day Oct 10, 2014 Exercise: no. Oct 10, 2014 Alcohol: no. Oct 10, 2014 Vital Signs Date/Time: Oct 10, 2014 Weight 145 lbs Height 61 in Temperature 98.1 F Cardiac Monitoring Heart Rate 64 /min Blood Pressure Diastolic 68 mm Hg Blood Pressure Systolic 122 mm Hg Summary Purpose eClinicalWorks Submission
--- OUTSIDE RECORDS SUMMARY | 2019-10-29 11:37 | XMS REPORT ---
Author Author MIKAL Brenner [facility] eClinicalWorks Address Unknown Phone Unavailable Care Team Providers Care Field Project Manager Name Role Phone James Brenner Unavailable Encounters Encounter Location Date [place] Speaker James Mcrae MD Mar 08, 2014 1133 PE James Mcrae MD Dec 20, 2013 Unknown James Mcrae MD August 05, 2014 3M F/U James Mcrae MD June 20, 2014 MRI James Mcrae MD July 07, 2014 REMICADE James Mcrae MD Mar 21, 2014 Unknown James Mcrae MD May 06, 2014 [place] Speaker James Mcrae MD Mar 16, 2014 2m f/u James Mcrae MD Mar 21, 2014 Unknown James Mcrae MD September 19, 2014 [id number] James Mcrae MD Oct 14, 2013 UTI f/u James Mcrae MD Oct 15, 2013 MRI Bi-Wrists Verify James Mcrae MD Oct 13, 2013 study James Mcrae MD Dec 13, 2013 study Jaems Mcrae MD September 03, 2013 Disscuss treatment [...] refill James Mcrae MD June 16, 2015 MRI and FOllow up James Mcrae [...] Subcutaneous Once a week Jun Active 0.8mL Social History Social History Element Qualifiers Date Reported Tobacco Use: . Are you a:: never smoker Mar 30 16 Marital Status: . Mar 30, 2015 Caffeine: yes. frequency:, 1-5, cups/day Mar 30, 2015 Exercise: no. Mar 30, 2015 Alcohol: no. Mar 30, 2015 Summary Purpose eClinicalWorks Submission
--- OUTSIDE RECORDS SUMMARY | 2019-10-29 11:37 | XMS REPORT ---
Author Author MIKAL Mcrae [facility] eClinicalWorks Address Unknown Phone Unavailable Care Team Providers Care Cloud Security Architect Name Role Phone James Mcrae Unavailable Encounters Encounter Location Date study James Mcrae MD September 03, 2013 Disscuss treatment options James Mcrae MD August 23 4 Problems Problem Type Condition ICD-9 Code Onset Dates Condition Statu s Problem Rheumatoid arthritis 714.0 Active Problem Long-term (current) use of other medications - High Ri sk V58.69 Active Problem Pain in joint, upper arm/elbow 719.42 Active Problem Psoriasis 696.1 Active Problem Postmenopausal status (age-related) V49.81 Active Social History Social History Element Qualifiers Date Reported Tobacco Use: . Are you a:: never smoker August 23 014 Marital Status: . August 23, 2013 Caffeine: yes. frequency:, 1-5, cups/day August 23, 2013 Exercise: no. August 23, 2013 Alcohol: no. August 23, 2013 Summary Purpose eClinicalWorks Submission
--- OUTSIDE RECORDS SUMMARY | 2019-10-29 11:37 | XMS REPORT ---
Author Author MIKAL Mcrae Organization eClinicalWorks Address Unknown Phone Unavailable Care Team Providers Care Inspector Screen Printing Name Role Phone James Mcrae CP Unavailable [...]
--- OUTSIDE RECORDS SUMMARY | 2019-10-29 11:37 | XMS REPORT ---
Author Author MIKAL Mcrae [facility] eClinicalWorks Address Unknown Phone Unavailable Care Team Providers Care Associate Vice President Name Role Phone James Mcrae CP Unavailable Encounters Encounter Location Date [id number] James Mcrae MD Oct 14, 2013 UTI [...]
--- OUTSIDE RECORDS SUMMARY | 2019-10-29 11:37 | XMS REPORT ---
Author Author MIKAL Brenner [facility] eClinicalWorks Address Unknown Phone Unavailable Care Team Providers Care Vest Backer Name Role Phone James Brenner CP Unavailable Allergies, Adverse Reactions, Alerts Substance Reaction Event Type PCN rash Non Drug Allergy Encounters Encounter Location Date [id number] James Mcrae MD Oct 14, 2013 UTI f/u James Mcrae MD Oct 15, 2013 MRI Bi-Wrists Verify James Mcrae MD Oct 13, 2013 study James Mcrae MD Dec 13, 2013 study James Mcrae MD September 03, 2013 Disscuss treatment options James Mcrae MD August 23 4 Disscuss treatment options James Mcrae MD Oct 11, 2013 [place] Speaker James Mcrae MD Mar 08, 2014 2-3 MTH F/U James Mcrae MD Jan 11, 2014 Other-Screen Fail James Mcrae MD Jan 12, 2014 3M F/U James Mcrae MD June 20, 2014 MRI James Mcrae MD July 07, 2014 REMICADE James Mcrae MD Mar 21, 2014 Unknown James Mcrae MD May 06, 2014 [place] Speaker James Mcrae MD Mar 16, 2014 2m f/u James Mcrae MD Mar 21, 2014 Problems Problem Type Condition ICD-9 Code [...] Instructions Start Date End Date Status Dosage Cyclobenzaprine HCl [facility] [address]-38 10 MG Orally Three times a day Active 1 tablet Tramadol-Acetaminophen [facility] [address]-32 37.5-325 MG Orally four times a day Active 1 tablets as nee ded Folic Acid [facility] [address]-02 1 MG Orally Once a day Active 2 tablets Medrol (Remi) [facility] [address]-62 4 MG Orally June 20, 2014 Active as directed Methotrexate [facility] 21970879413 2.5 Active TAKE 4 TABLET BY MOUTH ONCE WEEKLY Atenolol [facility] [address]-21 50 MG Orally Once a day Active 1 tablet Levothyroxine Sodium [facility] [address]-96 88 MCG Orally Once a day Active 1 tablet on an empty stomach in the morning MethylPREDNISolone [facility] 45473015525 4 Once a day Ac tive 1 tablet Glimepiride [facility] [address]-73 1 MG Orally Once a day Active 1 tablet with breakfast or the first main meal of the day Hydroxychloroquine Sulfate [facility] [address]-89 200 MG Orally twice a day June 20, 2014 Oct 18, 2014 Active 1 tablet with food o r milk Fenofibrate [facility] [address]-76 54 MG Orally Once a day Active 1 tablet with a meal Ranitidine & Diet Manage Prod Unknown 0 150 MG Orally once a day Active as directed Lisinopril [facility] [address]-43 Orally Once a day Act lul 1 tablet NIFEdipine [facility] [address]-88 30 MG Orally Once a day Active as directed Atorvastatin Calcium [facility] [address]-81 10 MG Orally Once a day Active 1 tablet Paroxetine HCl [facility] [address]-03 20 MG Orally Once a day Active 1 tablet in the morning Social History Social History Element Qualifiers Date Reported Tobacco Use: . Are you a:: never smoker June 20, 2014 Marital Status: . June 20, 2014 Caffeine: yes. frequency:, 1-5, cups/day June Exercise: no. June 20, 2014 Alcohol: no. June 20, 2014 Vital Signs Date/Time: June 20, 2014 Weight 155 lbs Height 62 in Temperature 98.9 F Cardiac Monitoring Heart Rate 72 /min Blood Pressure Diastolic 74 mm Hg Blood Pressure Systolic 144 mm Hg Summary Purpose eClinicalWorks Submission
--- OUTSIDE RECORDS SUMMARY | 2019-10-29 11:37 | XMS REPORT ---
Author MIKAL Morales [facility] eClinicalWorks Address Unknown Phone Unavailable Care Team Providers Care Word Processing Machine Operator Name Role Phone James Mcrae [...] Date End Date Status Dosage Hydroxychloroquine Sulfate [facility] 29371495220 200 A ctive [place] TABLETA POR BOCA DOS VECES POR TREVOR WITH FOOD Atorvastatin Calcium ND 61176945202 10 MG Orally Once a day Active 1 tablet Folic Acid ND 09156413455 1 MG Orally Once a day Ac tive 2 tablets Paroxetine HCl ND 20147184083 20 MG Orally Once a day Active 1 tablet in the morning Losartan Potassium-HCTZ ND 73762269737 100-25 MG Orally Once a day Active 1 tablet Lyrica ND 66504113609 50 MG Orally Once a day Apr 10, 2017 Active 1 capsule Amlodipine Besylate ND 64980638713 5 MG Orally bid Active 1 tablet Metformin HCl ND 51715435809 500 MG Orally Twice a day Active 1 tablet with meals Gabapentin ND 87763076594 100 MG Orally once a day Active 2 capsules Esomeprazole Magnesium ND 00584874869 40 MG Orally bid Active 1 capsule Carvedilol [facility] 21794944541 25 MG Orally bid Active 1 tablet MethylPREDNISolone ND 13285261266 4 MG Orally Once a day Active 1 tablet with food or milk in the morning Methotrexate NDC 0 25mg/1mL Subcutaneous Once a week Active 0.8 cc Fenofibrate ND 79479712656 54 MG Orally Once a day Active 1 tablet with a meal Tizanidine HCl [facility] 67643650226 4 MG Orally every 8 hrs Active 1 tablet as needed Levothyroxine Sodium [facility] 40519487389 125 MCG Orally Once a day Active 1 tablet on an empty stomach in the morning Vital Signs Date/Time: Oct 23, 2017 BMI 31.05 Index Weight 159 lbs Height 60 in Temperature 98.8 F Cardiac Monitoring Heart Rate 74 /min Blood Pressure Diastolic 70 mm Hg Blood Pressure Systolic 140 mm Hg Results No Known Results Summary Purpose eClinicalWorks Submission
--- OUTSIDE RECORDS SUMMARY | 2019-10-29 11:37 | XMS REPORT ---
Author Author MIKAL Santoyo [facility] eClinicalWorks Address Unknown Phone Unavailable Care Team Providers Care Engineering Director Name Role Phone Angelique Santoyo Unavailable Allergies, Adverse Reactions, Alerts Substance Reaction [...] use of high-risk medication Z79.899 Active Assessment Primary osteoarthritis involving multiple joints [...] Date End Date Status Dosage Carvedilol ND 38426377604 25 MG Orally bid Active 1 tablet Amlodipine Besylate ND 51465900107 5 MG Orally bid Active 1 tablet Tizanidine HCl ND 15858008154 4 MG Orally every 8 hrs Active 1 tablet as needed MethylPREDNISolone ND 02906133466 4 MG Orally once a day Active 1 tablet with food or milk Folic Acid ND 03887067260 1 MG Orally Once a day Ac tive 2 tablets Metformin HCl ND 89830110871 500 MG Orally Twice a day Active 1 tablet with meals Esomeprazole Magnesium ND 66775748580 40 MG Orally bid Active 1 capsule Fenofibrate ND 19169320045 54 MG Orally Once a day Active 1 tablet with a meal Paroxetine HCl ND 32897087076 20 MG Orally Once a day Active 1 tablet in the morning Levothyroxine Sodium ND 89054166252 125 MCG Orally Once a day Active 1 tablet on an empty stomach in the morning Methotrexate [facility] 31644008602 2.5mg Orally Once a week Active 6 tablets Gabapentin [facility] 23986815498 100 MG Orally Twice a day Active 1 capsule Vital Signs Date/Time: Jan 15, 2019 BMI 25.11 Index Weight 132.9 lbs Height 61 in Temperature 98.9 F Cardiac Monitoring Heart Rate 64 /min Blood Pressure Diastolic 60 mm Hg Blood Pressure Systolic 160 mm Hg Results No Known Results Summary Purpose eClinicalWorks Submission
--- OUTSIDE RECORDS SUMMARY | 2019-10-29 11:37 | XMS REPORT ---
Author Author MIKAL Henderson [facility] eClinicalWorks Address Unknown Phone Unavailable Care Team Providers Care Pbx Repairer Name Role Phone Catie Henderson Unavailable Allergies, Adverse Reactions, Alerts Substance Reaction Event Type PCN rash Non Drug Allergy Encounters Encounter Location Date [place] Speaker James Mcrae MD Mar 08, 2014 [...] MD June 20, 2014 Rt Shoulder Injection James Mcrae MD Nov 01, 2015 MRI James Mcrae MD July 07, 2014 REMICADE James Mcrae MD Mar 21, 2014 Unknown James Mcrae MD May 06, 2014 [place] Speaker James Mcrae MD Mar 16, 2014 2m f/u James Mcrae MD Mar 21, 2014 Unknown James Mcrae MD September 19, 2014 [id number] James Mcrae MD Oct 14, 2013 UTI [...] s Problem Rheumatoid arthritis 714.0 Active Problem Pain in joint, shoulder region 719.41 Active Problem Pain in joint, upper arm/elbow 719.42 Active Problem Back pain M54.9 Active Problem Screening for osteoporosis Z13.820 A ctive Problem Subacromial bursitis, right M75.51 Active Problem Spasm of muscle 728.85 Active Problem Rheumatoid arthritis with rh eumatoid factor of multiple sites without organ or systems involvement M05.79 Active Problem Long-term use of high-risk medication Z79.899 Active Problem Arm pain M79.603 Active Assessment Rheumatoid arthritis with rh eumatoid factor of multiple sites without organ or systems involvement M05.79 Active Problem Postmenopausal status (age-related) V49.81 Active Assessment Left shoulder pain M25.512 Active Problem Psoriasis 696.1 Active Assessment Long-term use of high-risk medication Z79.899 Active Problem Long-term (current) use of other medications - High Ri sk V58.69 Active Medications Medication Code System Code Instructions Start Date End Date Status Dosage Folic Acid [facility] [address]-81 1 MG Orally Once a day Active 2 tablets Fenofibrate [facility] [address]-77 54 MG Orally Once a day Active 1 tablet with a meal Ranitidine & Diet Manage Prod Unknown 0 150 MG Orally once a day Active as directed Lisinopril [facility] [address]-57 10 mg Orally Once a day Active 1 tablet Atorvastatin Calcium [facility] [address]-01 10 MG Orally Once a day Active 1 tablet Atenolol [facility] [address]-57 50 MG Orally Once a day Active 1 tablet and half tablet Paroxetine HCl [facility] [address]-04 20 MG Orally Once a day Active 1 tablet in the morning Glimepiride [facility] [address]-87 1 MG Orally Once a day Active 1 tablet with breakfast or the first main meal of the day Levothyroxine Sodium [facility] [address]-99 75 MCG Orally Once a day Active 1 tablet on an empty stomach in the morning MethylPREDNISolone [facility] 67252940370 4 mg prn Active TAKE ONE TABLET BY MOUTH EVERY DAY Hydroxychloroquine Sulfate [facility] 75872861467 200 mg Active TAKE ONE TABLET BY MOUTH TWICE A DAY WITH FOOD NIFEdipine [facility] [address]-18 30 MG Orally Once a day Active as directed Methotrexate Unknown 0 25mg/1mL Subcutaneous Once a week Jun Active 1mL Tizanidine HCl [facility] [address]-75 4 MG Orally every 8 hrs Active 1 tablet as needed Gabapentin [facility] 06390007595 300 Active TAKE ONE CAPSULE BY MOUTH EVERY NIGHT AT BEDTIME Social History Social History Element Qualifiers Date Reported Tobacco Use: . Are you a:: never smoker Nov 27 016 Marital Status: . Nov 28, 2015 Caffeine: yes. frequency:, 1-5, cups/day Nov 28, 2015 Exercise: no. Nov 28, 2015 Alcohol: no. Nov 28, 2015 Vital Signs Date/Time: Nov 28, 2015 Weight 149 lbs Height 61 in Temperature 98.4 F Cardiac Monitoring Heart Rate 64 /min Blood Pressure Diastolic 62 mm Hg Blood Pressure Systolic 130 mm Hg Summary Purpose eClinicalWorks Submission
--- OUTSIDE RECORDS SUMMARY | 2019-10-29 11:37 | XMS REPORT ---
Author Author MIKAL Brenner Organization eClinicalWorks Address Unknown Phone Unavailable Care Team Providers Care Dispatcher Service Name Role Phone ElidiaJames escalante CP Unavailable Allergies, Adverse Reactions, Alerts Substance Reaction Event Type PCN rash Non Drug Allergy Encounters Encounter Location Date [id number] James Mcrae MD Oct 14, 2013 UTI f/u James Mcrae MD Oct 15, 2013 MRI Bi-Wrists Verify James Mcrae MD Oct 13, 2013 study James Mcrae MD Dec 13, 2013 study James Mcrae MD September 03, 2013 [place] Speaker James Mcrae MD Mar 16, 2014 Disscuss treatment options James Mcrae MD August 23 4 2m f/u James Mcrae MD Mar 21, 2014 Disscuss treatment options James Mcrae MD Oct 11, 2013 [place] Speaker James Mcrae MD Mar 08, 2014 2-3 MTH F/U James Mcrae MD Jan 11, 2014 Other-Screen Fail James Mcrae MD Jan 12, 2014 Problems Problem Type Condition ICD-9 Code Onset Dates Condition Statu s Assessment Long-term (current) use of other medications - High Ri sk V58.69 Active Assessment Rheumatoid arthritis 714.0 Active Social History Social History Element Qualifiers Date Reported Tobacco Use: . Are you a:: never smoker Mar 21 Marital Status: . Mar 21, 2014 Caffeine: yes. frequency:, 1-5, cups/day Mar 21, 2014 Exercise: no. Mar 21, 2014 Alcohol: no. Mar 21, 2014 Vital Signs Date/Time: Mar 21, 2014 Weight 153 lbs Height 61 in Temperature 99.4 F Cardiac Monitoring Heart Rate 72 /min Blood Pressure Diastolic 68 mm Hg Blood Pressure Systolic 142 mm Hg Summary Purpose eClinicalWorks Submission
--- OUTSIDE RECORDS SUMMARY | 2019-10-29 11:37 | XMS REPORT ---
Author Author MIKAL Mcrae Organization eClinicalWorks Address Unknown Phone Unavailable Care Team Providers Care Network Pricing Consultant Name Role Phone James Mcrae CP Unavailable [...] Start Date End Date Status Dosage Methotrexate [facility] 42127100939 2.5mg Orally Once a week October 01, 2018 Active 6 tablets Results No Known Results Summary Purpose eClinicalWorks Submission
--- OUTSIDE RECORDS SUMMARY | 2019-10-29 11:37 | XMS REPORT ---
Author Author MIKAL Henderson [facility] eClinicalWorks Address Unknown Phone Unavailable Care Team Providers Care [facility] Former Name Role Phone Catie Henderson Unavailable Allergies, Adverse Reactions, Alerts Substance Reaction Event Type PCN Info Not Available Non Drug Allergy Encounters Encounter Location Date study James Mcrae MD September 03, 2013 Disscuss treatment options James Mcrae MD August 23 4 Problems Problem Type Condition ICD-9 Code Onset Dates Condition Statu s Assessment Long-term (current) use of other medications - High Ri sk V58.69 Active Problem Rheumatoid arthritis 714.0 Active Problem Long-term (current) use of other medications - High Ri sk V58.69 Active Problem Pain in joint, upper arm/elbow 719.42 Active Assessment Rheumatoid arthritis 714.0 Active Assessment Postmenopausal status (age-related) V49.81 Active Problem Psoriasis 696.1 Active Problem Postmenopausal status (age-related) V49.81 Active Medications Medication Code System Code Instructions Start Date End Date Status Dosage Atenolol [facility] [address]-02 50 MG Orally Once a day Active 1 tablet Atorvastatin Calcium [facility] [address]-45 10 MG Orally Once a day Active 1 tablet Levothyroxine Sodium [facility] [address]-00 88 MCG Orally Once a day Active 1 tablet on an empty stomach in the morning Paroxetine HCl [facility] [address]-88 20 MG Orally Once a day Active 1 tablet in the morning Lisinopril [facility] [address]-05 Orally Once a day Act lul 1 tablet Folic Acid [facility] [address]-04 1 MG Orally Once a day Active 1 tablet Methotrexate Unknown 0 2.5mg Orally Once a week Ac tive 6 tablets Enbrel SureClick [facility] [address]-13 50 MG/ML Subcutaneous o nce a week August 23, 2013 Nov 21, 2013 Active 1 ml Cyclobenzaprine HCl [facility] [address]-82 10 MG Orally Three times a day Active 1 tablet NIFEdipine [facility] [address]-59 30 MG Orally Active as directed Glimepiride [facility] [address]-03 1 MG Orally Once a day Active 1 tablet with breakfast or the first main meal of the day MethylPREDNISolone [facility] [address]-66 4 Active TAKE ONE TABLET BY MOUTH EVERY DAY Fenofibrate [facility] [address]-08 54 MG Orally Once a day Active 1 tablet with a meal Tramadol-Acetaminophen [facility] [address]-81 37.5-325 MG Orally four times a day Active 1 tablets as nee ded Ranitidine & Diet Manage Prod Unknown 0 150 MG Orally Active as directed Social History Social History Element Qualifiers Date Reported Tobacco Use: . Are you a:: never smoker August 23 014 Marital Status: . August 23, 2013 Caffeine: yes. frequency:, 1-5, cups/day August 23, 2013 Exercise: no. August 23, 2013 Alcohol: no. August 23, 2013 Vital Signs Date/Time: August 23, 2013 Weight 158 lbs Height 62 in Temperature 98.9 F Cardiac Monitoring Heart Rate 76 /min Blood Pressure Diastolic 72 mm Hg Blood Pressure Systolic 136 mm Hg Summary Purpose eClinicalWorks Submission
--- OUTSIDE RECORDS SUMMARY | 2019-10-29 11:37 | XMS REPORT ---
Author Author MIKAL Mcrae [facility] eClinicalWorks Address Unknown Phone Unavailable Care Team Providers Care Hvac Engineer Name Role Phone James Mcrae CP [...] Start Date End Date Status Dosage MethylPREDNISolone [facility] 85209917485 4 MG Orally Once a day Active 1 tablet with food or milk in the morning Results No Known Results Summary Purpose eClinicalWorks Submission
--- OUTSIDE RECORDS SUMMARY | 2019-10-29 11:37 | XMS REPORT ---
Author Author MIKAL Henderson [facility] eClinicalWorks Address Unknown Phone Unavailable Care Team Providers Care Non Destructive Evaluation Specialist Name Role Phone Catie Henderson CP Unavailable Allergies, Adverse Reactions, Alerts Substance Reaction Event Type PCN Info Not Available Non Drug Allergy Encounters Encounter Location Date [id number] James Mcrae MD Oct 14, 2013 UTI [...] Instructions Start Date End Date Status Dosage Tramadol-Acetaminophen [facility] [address]-00 37.5-325 MG Orally four times a day Active 1 tablets as nee ded Methotrexate Unknown 0 2.5mg Orally Once a week Ac tive 6 tablets Glimepiride [facility] [address]-02 1 MG Orally Once a day Active 1 tablet with breakfast or the first main meal of the day Lisinopril [facility] [address]-75 Orally Once a day Act lul 1 tablet NIFEdipine [facility] [address]-72 30 MG Orally Active as directed Fenofibrate [facility] [address]-65 54 MG Orally Once a day Active 1 tablet with a meal MethylPREDNISolone [facility] [address]-37 4 Active TAKE ONE TABLET BY MOUTH EVERY DAY Paroxetine HCl [facility] [address]-92 20 MG Orally Once a day Active 1 tablet in the morning Cyclobenzaprine HCl [facility] [address]-87 10 MG Orally Three times a day Active 1 tablet Ranitidine & Diet Manage Prod Unknown 0 150 MG Orally Active as directed Atenolol [facility] [address]-90 50 MG Orally Once a day Active 1 tablet Folic Acid [facility] [address]-18 1 MG Orally Once a day Active 1 tablet Atorvastatin Calcium [facility] [address]-30 10 MG Orally Once a day Active 1 tablet Levothyroxine Sodium [facility] [address]-52 88 MCG Orally Once a day Active 1 tablet on an empty stomach in the morning Social History Social History Element Qualifiers Date Reported Tobacco Use: . Are you a:: never smoker Oct 11 Marital Status: . Oct 11, 2013 Caffeine: yes. frequency:, 1-5, cups/day Oct 11, 2013 Exercise: no. Oct 11, 2013 Alcohol: no. Oct 11, 2013 Vital Signs Date/Time: Oct 11, 2013 Weight 151 lbs Height 62 in Temperature 97.3 F Cardiac Monitoring Heart Rate 76 /min Blood Pressure Diastolic 70 mm Hg Blood Pressure Systolic 126 mm Hg Results CBC (INCLUDES DIFF/PLT) ABSOLUTE LYMPHOCYTES(-850-3900 cells/uL) 1647 ABSOLUTE NEUTROPHILS(-7171-1167 cells/uL) 2678 BASOPHILS(- %) 0.5 HEMOGLOBIN(-11.7-15.5 g/dL) 11.7 EOSINOPHILS(- %) 5.1 HEMATOCRIT(-35.0-45.0 %) 35.4 MONOCYTES(- %) 14.3 MCV(-80.0-100.0 fL) 105.4 LYMPHOCYTES(- %) 30.5 MCH(-27.0-33.0 pg) 34.9 NEUTROPHILS(- %) 49.6 MCHC(-32.0-36.0 g/dL) 33.1 ABSOLUTE BASOPHILS(-0-200 cells/uL) 27 RDW(-11.0-15.0 %) 15.0 WHITE BLOOD CELL COUNT(-3.8-10.8 Thousand/uL) 5.4 PLATELET COUNT(-140-400 Thousand/uL) 304 ABSOLUTE EOSINOPHILS(-15-500 cells/uL) 275 RED BLOOD CELL COUNT(-3.80-5.10 Million/uL) 3.36 ABSOLUTE MONOCYTES(-200-950 cells/uL) 772 SED RATE BY MODIFIED WESTERGREN SED RATE BY MODIFIED WESTERGREN(-< OR = 30 mm/h) 5 COMPREHENSIVE METABOLIC PANEL W/EGFR ALBUMIN/GLOBULIN RATIO(-1.0-2.5 (calc)) 1.4 GLOBULIN(-1.9-3.7 g/dL (calc)) 2.7 ALKALINE PHOSPHATASE(-33-130 U/L) 69 BILIRUBIN, TOTAL(-0.2-1.2 mg/dL) 0.4 CHLORIDE(-98-110 mmol/L) 104 ALT(-6-29 U/L) 18 POTASSIUM(-3.5-5.3 mmol/L) 3.9 AST(-10-35 U/L) 25 SODIUM(-135-146 mmol/L) 140 BUN/CREATININE RATIO(-6-22 (calc)) 21 eGFR (-> OR = 60 mL/min/1.73m2) 48 CALCIUM(-8.6-10.4 mg/dL) 9.4 CARBON DIOXIDE(-19-30 mmol/L) 27 ALBUMIN(-3.6-5.1 g/dL) 3.9 PROTEIN, TOTAL(-6.1-8.1 g/dL) 6.6 GLUCOSE(-65-99 mg/dL) 118 UREA NITROGEN (BUN)(-7-25 mg/dL) 28 CREATININE(-0.50-0.99 mg/dL) 1.34 eGFR NON-AFR. NIUEAN(-> OR = 60 mL/min/1.73m2) 42 C-REACTIVE PROTEIN C-REACTIVE PROTEIN(-<0.80 mg/dL) 0.21 Immunizations Vaccine Administration Date Toradol Oct 11, 2013 Summary Purpose eClinicalWorks Submission
--- OUTSIDE RECORDS SUMMARY | 2019-10-29 11:37 | XMS REPORT ---
Author Author MIKAL Henderson [facility] eClinicalWorks Address Unknown Phone Unavailable Care Team Providers Care Chip Crusher Operator Name Role Phone Catie Henderson Unavailable Encounters Encounter Location Date [id number] James Mcrae MD Oct 14, 2013 UTI f/u James Mcrae MD Oct 15, 2013 MRI Bi-Wrists Verify James Mcrae MD Oct 13, 2013 study James Mcrae MD Dec 13, 2013 study James Mcrae MD September 03, 2013 Disscuss treatment options James Mcrae MD August 23 4 Disscuss treatment options James Mcrae MD Oct 11, 2013 [place] Speaker James Mcrae MD Mar 08, 2014 2-3 MTH F/U James Mcrae MD Jan 11, 2014 Other-Screen Fail James Mcrae MD Jan 12, 2014 1133 PE James Mcrae MD Dec 20, 2013 3M F/U James Mcrae MD June 20, 2014 MRI James Mcrae MD July 07, 2014 REMICADE James Mcrae MD Mar 21, 2014 Unknown James Mcrae MD May 06, 2014 [place] Speaker James Mcrae MD Mar 16, 2014 [...] 20, 2014 Alcohol: no. June 20, 2014 Summary Purpose eClinicalWorks Submission
--- OUTSIDE RECORDS SUMMARY | 2019-10-29 11:37 | XMS REPORT ---
Author Author MIKAL Mcrae [facility] eClinicalWorks Address Unknown Phone Unavailable Care Team Providers Care Business Ethics Professor Name Role Phone James Mcrae CP Unavailable [...] Start Date End Date Status Dosage Methotrexate NDC 0 25mg/1mL Subcutaneous Once a week Dec 31, 2 018 Active 1mL Results No Known Results Summary Purpose eClinicalWorks Submission
--- OUTSIDE RECORDS SUMMARY | 2019-10-29 11:37 | XMS REPORT ---
Author Author MIKAL Mcrae eClinicalWorks Address Unknown Phone Unavailable Care Team Providers Care Swimming Pool Installer Name Role Phone James cMrae CP Unavailable Encounters Encounter Location Date [id number] James Mcrae MD Oct 14, 2013 UTI f/u James Mcrae MD Oct 15, 2013 MRI Bi-Wrists Verify James Mcrae MD Oct 13, 2013 study James Mcrae MD Dec 13, 2013 study James Mcrae MD September 03, 2013 [place] Speaker James Mcrae MD Mar 16, 2014 Disscuss treatment options James Mcrae MD August 23 4 Disscuss treatment options James Mcrae MD Oct 11, 2013 [place] Speaker James Mcrae MD Mar 08, 2014 [...]
--- OUTSIDE RECORDS SUMMARY | 2019-10-29 11:37 | XMS REPORT ---
Author Author MIKAL Mcrae Organization eClinicalWorks Address Unknown Phone Unavailable Care Team Providers Care Hog Grader Name Role Phone James Mcrae CP Unavailable [...] Date End Date Status Dosage Hydroxychloroquine Sulfate [facility] 77114017596 200 MG Orally twice a day Jan 13, 2018 Active 1 tablet with food o r milk Results No Known Results Summary Purpose eClinicalWorks Submission
--- OUTSIDE RECORDS SUMMARY | 2019-10-29 11:37 | XMS REPORT ---
Author Author MIKAL Henderson [facility] eClinicalWorks Address Unknown Phone Unavailable Care Team Providers Care Application Development Team Lead Name Role Phone Catie Henderson Unavailable Allergies, Adverse Reactions, Alerts Substance Reaction Event Type PCN rash Non Drug Allergy Encounters Encounter Location Date Lebanese Speaker James Mcrae MD Mar 08, 2014 [...] James Mcrae MD July 07, 2014 REMICADE aJmes Mcrae MD Mar 21, 2014 Unknown James Mcrae MD May 06, 2014 [place] Speaker James Mcrae MD Mar 16, 2014 2m f/u James Mcrae MD Mar 21, 2014 Unknown James Mcrae MD September 19, 2014 [id number] James Mcrae MD Oct 14, 2013 UTI [...] Instructions Start Date End Date Status Dosage Ranitidine & Diet Manage Prod Unknown 0 150 MG Orally once a day Active as directed Paroxetine HCl [facility] [address]-20 20 MG Orally Once a day Active 1 tablet in the morning Metformin HCl [facility] [address]-03 500 MG Orally Twice a day Active 1 tablet with meals Fenofibrate [facility] [address]-95 54 MG Orally Once a day Active 1 tablet with a meal Gabapentin [facility] 85184385966 300 Active TAKE ONE CAPSULE BY MOUTH EVERY NIGHT AT BEDTIME Glimepiride [facility] [address]-21 1 MG Orally Once a day Active 1 tablet with breakfast or the first main meal of the day MethylPREDNISolone [facility] 95694568350 4 mg prn Active TAKE ONE TABLET BY MOUTH EVERY DAY Losartan Potassium-HCTZ [facility] [address]-67 100-12.5 MG Orally O nce a day Active 1 tablet Folic Acid [facility] [address]-64 1 MG Orally Once a day Active 2 tablets Methotrexate Unknown 0 25mg/1mL Subcutaneous Once a week Jun Active 1mL Levothyroxine Sodium [facility] [address]-29 75 MCG Orally Once a day Active 1 tablet on an empty stomach in the morning Lisinopril [facility] [address]-92 10 mg Orally Once a day Active 1 tablet Atenolol [facility] [address]-48 50 MG Orally Once a day Active 1 tablet and half tablet Hydroxychloroquine Sulfate [facility] 15420445782 200 mg Active TAKE ONE TABLET BY MOUTH TWICE A DAY WITH FOOD Atorvastatin Calcium [facility] [address]-68 10 MG Orally Once a day Active 1 tablet NIFEdipine [facility] [address]-45 30 MG Orally Once a day Active as directed Tizanidine HCl [facility] [address]-06 4 MG Orally every 8 hrs Active 1 tablet as needed Social History Social History Element Qualifiers Date Reported Tobacco Use: . Are you a:: never smoker Feb 25 16 Marital Status: . Feb 26, 2016 Caffeine: yes. frequency:, 1-5, cups/day Feb 26, 2016 Exercise: no. Feb 26, 2016 Alcohol: no. Feb 26, 2016 Vital Signs Date/Time: Feb 26, 2016 Weight 145.4 lbs Height 61 in Temperature 97.5 F Cardiac Monitoring Heart Rate 66 /min Blood Pressure Diastolic 70 mm Hg Blood Pressure Systolic 128 mm Hg Summary Purpose eClinicalWorks Submission
--- OUTSIDE RECORDS SUMMARY | 2019-10-29 11:37 | XMS REPORT ---
Author Author MIKAL Mcrae [facility] eClinicalWorks Address Unknown Phone Unavailable Care Team Providers Care Applied Psychology Teacher Name Role Phone James Mcrae CP Unavailable Encounters Encounter Location Date [place] Speaker James Mcrae MD Mar 08, 2014 MRI James Mcrae MD July 05, 2015 1133 PE James Mcrae MD Dec 20, 2013 Unknown James Mcrae MD August 05, 2014 3M F/U James Mcrae MD June 20, 2014 MRI James Mcrae MD July 07, 2014 REMICADE James Mcrae MD Mar 21, 2014 Unknown James Mcrae MD May 06, 2014 [place] Speaker James Mcrae MD Mar 16, 2014 2m f/u James Mcrae MD Mar 21, 2014 Unknown James Mcrae MD September 19, 2014 [id number] James Mcrae MD Oct 14, 2013 UTI [...] - High Ri sk V58.69 Active Problem Postmenopausal status (age-related) V49.81 Active Problem Long-term use of high-risk medication Z79.899 Active Problem Arm pain M79.603 Active Problem Screening for osteoporosis Z13.820 A ctive Problem Pain in joint, shoulder region 719.41 Active Problem Pain in joint, upper arm/elbow 719.42 Active Problem Spasm of muscle 728.85 Active Problem Rheumatoid arthritis with rh eumatoid factor of multiple sites without organ or systems involvement M05.79 Active Social History Social History Element Qualifiers Date Reported Tobacco Use: . Are you a:: never smoker June 29, 2015 Marital Status: . June 29, 2015 Caffeine: yes. frequency:, 1-5, cups/day June Exercise: no. June 29, 2015 Alcohol: no. June 29, 2015 Summary Purpose eClinicalWorks Submission
--- OUTSIDE RECORDS SUMMARY | 2019-10-29 11:37 | XMS REPORT ---
Author Author MIKAL [facility]ner [facility] eClinicalWorks Address Unknown Phone Unavailable Care Team Providers Care Manager Float Name Role Phone ElidiaJames CP Unavailable Allergies, Adverse Reactions, Alerts Substance Reaction Event Type PCN rash Non Drug Allergy Encounters Encounter Location Date [place] James Mcrae MD Mar 08, 2014 [...] Unknown James Mcrae MD May 06, 2014 [place] James Mcrae MD Mar 16, 2014 2m f/u James Mcrae MD Mar 21, 2014 Unknown James Mcrae MD September 19, 2014 [id number] James Mcrae MD Oct 14, 2013 UTI [...] Problem Postmenopausal status (age-related) V49.81 Active Assessment Subacromial bursitis, right M75.51 Active Problem Psoriasis 696.1 Active Assessment Long-term use of high-risk medication Z79.899 Active Problem Long-term (current) use of other medications - High Ri sk V58.69 Active Medications Medication Code System Code Instructions Start Date End Date Status Dosage [facility] 339[facility]1986 200 mg Active TAKE ONE TABLET BY MOUTH TWICE A DAY WITH FOOD [facility]inop[facility] [address]-45 10 mg Orally Once a day Active 1 tablet Folic Acid [facility] [address]-78 1 MG Orally Once a day Active 2 tablets NIFEdipine [facility] [address]-15 30 MG Orally Once a day Active as directed Methotrexate Unknown 0 25mg/1mL Subcutaneous Once a week Jun Active 1mL Macrobid [facility] [address]-97 100 MG Orally every 12 hrs Active 1 capsule with food Gabapentin [facility] 45448819345 100 mg Active TAKE ON E CAPSULE BY MOUTH EVERY NIGHT AT BEDTIME Fenofibrate [facility] [address]-16 54 MG Orally Once a day Active 1 tablet with a meal Paroxetine HCl [facility] [address]-62 20 MG Orally Once a day Active 1 tablet in the morning Glimepiride [facility] [address]-19 1 MG Orally Once a day Active 1 tablet with breakfast or the first main meal of the day MethylPREDNISolone [facility] 39847159590 4 mg prn Active TAKE ONE TABLET BY MOUTH EVERY DAY Atorvastatin Calcium [facility] [address]-61 10 MG Orally Once a day Active 1 tablet Tizanidine HCl [facility] [address]-77 4 MG Orally every 8 hrs Active 1 tablet as needed Ranitidine & Diet Manage Prod Unknown 0 150 MG Orally once a day Active as directed Levothyroxine Sodium [facility] [address]-65 75 MCG Orally Once a day Active 1 tablet on an empty stomach in the morning Atenolol [facility] [address]-78 50 MG Orally Once a day Active 1 tablet Social History Social History Element Qualifiers Date Reported Tobacco Use: . Are you a:: never smoker Oct 31 Marital Status: . Nov 01, 2015 Caffeine: yes. frequency:, 1-5, cups/day Nov 01, 2015 Exercise: no. Nov 01, 2015 Alcohol: no. Nov 01, 2015 Vital Signs Date/Time: Nov 01, 2015 Weight 152 lbs Height 61 in Temperature 98.8 F Cardiac Monitoring Heart Rate 64 /min Blood Pressure Diastolic 60 mm Hg Blood Pressure Systolic 130 mm Hg Summary Purpose eClinicalWorks Submission
--- OUTSIDE RECORDS SUMMARY | 2019-10-29 11:37 | XMS REPORT ---
Author Author MIKAL Mcrae eClinicalWorks Address Unknown Phone Unavailable Care Team Providers Care Computerized Mill Recorder Name Role Phone James Mcrae CP Unavailable Encounters Encounter Location Date [id number] James Mcrae MD Oct 14, 2013 UTI [...] 11, 2014 Alcohol: no. Jan 11, 2014 Summary Purpose eClinicalWorks Submission
--- OUTSIDE RECORDS SUMMARY | 2019-10-29 11:38 | XMS REPORT | Summary of Care ---
Author Author [facility] Out[facility] Imaging - [facility] Organization [facility] Address Unknown Phone Unavailable Encounter [facility](FIN) [id number] Date(s): 12/02/17 - 12/02/17 [facility] Outpatient Imaging - [place] [address] [place] [address] [place] [phone] Encounter Diagnosis Other spondylosis with radiculopathy, lumbosacral region (Final) - 02/08/18 Other forms of scoliosis, lumbar region (Final) - Spinal stenosis, lumbar region without neurogenic claudication (Final) - Discharge Disposition: Home or Self Care Attending Physician: Dulce Covarrubias MD Referring Physician: Dulce Covarrubias MD Vital Signs No data available for this section Problem List No data available for this section Allergies, Adverse Reactions, Alerts Substance Reaction Severity Status NKDA Active Medications No data available for this section Results No data available for this section Immunizations No data available for this section Procedures No data available for this section Social History Social History Type Response Smoking Status Never smoker; Exposure to T obacco Smoke None; Cigarette Smoking Last 365 Days No; Reg Smoking Cessation Counseli dustin No entered on: 12/20/14 Assessment and Plan No data available for this section
--- OUTSIDE RECORDS SUMMARY | 2019-10-29 11:38 | XMS REPORT | Continuity of Care Document ---
Author Author [facility] Organization [facility] Address [address] [place] [address] Phone Unavailable Care Team Providers Care Plans Examiner Name Role Phone Henderson, Juan R Haddad Attphys Unavailable Christopher Covarrubias Triet Attphys PillaiZion currieh Cat Attphys Problems Condition Name Condition Details Condition Category Status Onset Date Resolution Date Last Treatment Date Treating Clinician Comments Source TRAPEZIUS MUSCLE SPASM, NECK PAIN TRAPEZIUS MUSCLE SPASM, NECK PAIN Active 07/27/2018 [facility] Diagnosis Active 2018-07-27 12:00:00 2018-08-05 10:13:00 [facility] [address] DIARHEA DIAR HEA Active 12/19/2014 [facility] Active 2014-12-19 00:00:00 2014-12-20 03:16:00 Luisa Thomason Other forms of scoliosis, lumbar region Other forms of scoliosis, lumbar region 06/21/2018 [facility] [employer] Problem 2018-06-21 12:38:20 Luisa Thomason Spinal stenosis, lumbar region without neurogenic roxanna dication Spinal stenosis, lumbar region without neurogenic claudication 06/21/2018 [facility] Problem 2018-06-21 12:38:20 [facility] [address] Subacromial bursitis, right Schreiber bacromial bursitis, right Active Problem 09/15/2019 Viraj Mcrae Problem Active 2019-09-15 02:45:08 Luisa Thomason Back pain Back pain Active Problem 09/15/2019 Viraj Mcrae Problem Active 2019-09-15 02:45:08 Luisa Thomason Primary osteoarthritis involving multiple joints Primary osteoarthritis involving multiple joints Active Problem 09/15/2019 Viraj Mcrae Problem Active 2019-09-15 02:45:08 Luisa Thomason Arm pain Arm pain Active Problem 09/15/2019 Viraj Mcrae Problem Active 2019-09-15 02:45:08 Kristian [facility] [place] 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 Rheumatoid arthr itis with rheumatoid factor of multiple sites without organ or systems involvement Active Problem 09/15/2019 Viraj Mcrae Problem Active 2019-09-15 02:45:08 [facility] Screening for osteoporosis Scr eening for osteoporosis Active Problem 09/15/2019 Viraj Mcrae Problem Active 2019-09-15 02:45:08 [facility] Long-term use of high-risk medication Long-term use of high-risk medication Active Problem 09/15/2019 Viraj Garcíaer Problem Active 2019-09-15 02:45:08 [facility] Trapezius muscle spasm Trap ezius muscle spasm Active Problem 09/15/2019 Viraj Mcrae Problem Active 2019-09-15 02 :45:08 [facility] Rheumatoid arthritis Rheu matoid arthritis Active Problem 02/28/2016 Viraj Mcrae Problem Active 2016-02-28 03:56:53 [facility] Long-term (current) use of other medications - High Ri sk Long-term (current) use of other medications - High Risk Active Problem 02/28/2016 Viraj Mcrae Problem Active 2016-02-28 03:56:53 [facility] Pain in joint, upper arm/elbow Pain in joint, upper arm/elbow Active Problem 02/28/2016 Viraj Garcíaer Problem Active 2016-02-28 03:56:53 [facility] Psoriasis Psor iasis Active Problem 02/28/2016 Viraj Mcrae Problem Active 2016-02-28 03:56:53 [facility] Postmenopausal status (age-related) Postmenopausal status (age-related) Active Problem 02/28/2016 Viarj Mcrae Problem Active 2016-02-28 03:56:53 [facility] Screening for depression Scre ening for depression Active Diagnosis 01/13/2014 Viraj Garcíaer Diagnosis Active 2014-01-13 03:48:39 [facility] Pain in joint, shoulder region Pain in joint, shoulder region Active Problem 02/28/2016 Viraj Garcíaer Problem Active 2016-02-28 03:56:53 [facility] Pain, back Pain , back Active Diagnosis 01/13/2014 Viraj Mcrae Diagnosis Active 2014-01-13 03:48:39 [facility] Fibromyalgia Fibr omyalgia Active Diagnosis 10/21/2014 Viraj Mcrae Diagnosis Active 2014-10-21 03:05:21 [facility] Sacroiliitis, not elsewhere classified Sacroiliitis, not elsewhere classified Active Diagnosis 01/13/2014 Viraj Mcrae Diagnosis Active 2014-01-13 03:48:39 [facility] [place] Spasm of muscle Spas m of muscle Active Problem 02/28/2016 Viraj Mcrae Problem Active 2016-02-28 03:56:53 Luisa Thomason Left shoulder pain Left shoulder pain Active Diagnosis 02/28/2016 Virajleydi Mcrae Diagnosis Active 2016-02-28 03:56:53 [facility] [place] Neck pain Neck pain Active Diagnosis 12/02/2018 Viraj Mcrae Diagnosis Active 2018-12-02 02:52:49 [facility] [address] Shoulder pain Shou lder pain Active Problem 09/15/2019 Viraj Mcrae Problem Active 2019-09-15 02:45:08 [facility] [address] Other spondylosis with radiculopathy, lumbosacral silvia on Other spondylosis with radiculopathy, lumbosacral region 02/08/2018 06/21/2018 [facility] [employer] Problem 2018-02-08 09:21:19 2018-06-21 12:38:20 2018-06-21 12:38:20 [facility] Allergies, Adverse Reactions, Alerts Allergy Name Allergy Type Status Severity Reaction(s) Onset Date Inacti ve Date Treating Clinician Comments Source PCN PCN Active rash 2019-07-19 00:00:00 Luisa Thomason No Known Medication Allergies No Known Medication Allergies Active [facility] Family History Family Member Diagnosis Comments Start Date Stop Date Source Unknown Family Member Family History 2015-10-12 03:03:20 2 03:03:20 [facility] Social History Social Habit Start Date Stop Date Quantity Comments Source TobaccoUse: 2016-03-18 00:00:00 2016-03-18 00:00:00 [facility] Smoking Status Start Date Stop Date Source Social History [facility] Medications Ordered Medication Name Filled Medication Name Start Date Stop Da te Current Medication? Ordering Clinician Indication Dosage Frequency Signature (SIG) Comments Components Source Folic Acid 2019-09-15 02:45:08 Yes James Mcrae [address] [facility] Paroxetine HCl 2019-07-24 02:45:52 Yes Monster Timmons 1 tablet in the morning [facility] Carvedilol 2019-07-24 02:45:52 Yes Monster Timmons 1 tablet [facility] Esomeprazole Magnesium 2019-07-24 02:45:52 Yes Monster Timmons 1 capsule [facility] Amlodipine Besylate 2019-07-24 02:45:52 Yes Monster Timmons 1 tablet [facility] Levothyroxine Sodium 2019-07-24 02:45:52 Yes Monster Ambri z 1 tablet on an empty stomach in the morning [facility] Metformin HCl 2019-07-24 02:45:52 Yes Monster Timmons 1 tablet with meals [facility] Fenofibrate 2019-07-24 02:45:52 Yes Monster Timmons 1 tablet with a meal [facility] Tizanidine HCl 2019-07-24 02:45:52 Yes Monster Timmons 1 tablet as needed [facility] MethylPREDNISolone 2019-07-24 02:45:52 Yes Monster Timmons 1 tablet with food or milk [facility] Methotrexate 2019-07-24 02:45:52 Yes Monster Timmons 6 tablets [facility] Gabapentin 2019-07-24 02:45:52 Yes Monster Timmons 1 capsule [facility] Olmesartan Medoxomil 2019-07-24 02:45:52 Yes Monster Timmons 1 tablet [facility] Atorvastatin Calcium 2019-07-24 02:45:52 Yes Monster Timmons 1 tablet [facility] Hydrochlorothiazide 2019-07-24 02:45:52 Yes Monster Timmons 1 capsule in the morning [facility] Plaquenil 2019-02-01 00:00:00 Yes Monster Timmons one tablet with food of milk [facility] BD Allergy Syringe 2018-12-02 02:59:22 Yes Catie mosher USE ONE - DIRECTED WEEKLY [facility] Losartan Potassium-HCTZ 2018-12-02 02:59:22 Yes Catie Flood allace 1 tablet [facility] Methotrexate Sodium 2018-12-02 02:59:22 Yes Catie allison ONE INJECTION OF 1ML (ONE MILLILITER) [place] ONCE WEEKLY [facility] Losartan Potassium-HCTZ 2018-11-10 02:45:13 Yes Angelique Horn 1 tablet [facility] Methotrexate 2018-10-01 00:00:00 Yes Angelique Horn 6 tablets [facility] Hydroxychloroquine Sulfate 2018-04-01 03:46:44 Yes Nadya Henderson TOME MARY TABLETA POR BOCA DOS VECES POR TREVOR WITH FOOD [facility] Atorvastatin Calcium 2018-04-01 03:46:44 Yes Catie Henderson 1 tablet [facility] Gabapentin 2018-04-01 03:46:44 Yes Catie Henderson 2 capsules [facility] Ibuprofen 2018-04-01 03:46:44 Yes Catie Henderson 1 tablet with food or milk as needed [facility] Tylenol#3 2018-04-01 03:46:44 Yes Catie Henderson 1 tablet [facility] Gabapentin 2018-03-30 00:00:00 Yes Catie Henderson 1 capsule [facility] Hydroxychloroquine Sulfate 2018-01-13 00:00:00 Yes Liza Garcíaer 1 tablet with food or milk [facility] Methotrexate 2017-12-31 00:00:00 Yes Catie Garcíaace 1mL [facility] Methotrexate 2017-10-29 02:47:16 Yes James Garcíaer 0.8 cc [facility] MethylPREDNISolone 2017-10-29 02:47:16 Yes James Garcíaer 1 tablet with food or milk in the morning [facility] st MethylPREDNISolone 2017-06-21 02:47:09 Yes James Mcrae TAKE ONE TABLET BY MOUTH DAILY [facility] Ranitidine & Diet Manage Prod 2017-04-11 03:50:13 Yes Uzair Mcrae as directed [facility] Lisinopril 2017-04-11 03:50:13 Yes James Garcíaer 1 tablet [facility] Glimepiride 2017-04-11 03:50:13 Yes James Garcíaer 1 tablet with breakfast or the first main meal of the day [facility] Lyrica 2017-04-10 00:00:00 Yes Catie Henderson 1 c apsule [facility] Lyrica 2017-03-20 00:00:00 Yes James Garcíaer 1 ca psule [facility] Folic Acid 2017-01-01 02:46:50 Yes Catie Garcíaace 2 tablets [facility] Losartan Potassium-HCTZ 2017-01-01 02:46:50 Yes Catie W allace 1 tablet [facility] Atorvastatin Calcium 2017-01-01 02:46:50 Yes Catie Hendersno 1 tablet [facility] Levothyroxine Sodium 2017-01-01 02:46:50 Yes Catie Wall mian 1 tablet on an empty stomach in the morning [facility] NIFEdipine 2017-01-01 02:46:50 Yes Catie Garcíaace as directed [facility] Esomeprazole Magnesium 2017-01-01 02:46:50 Yes Catie Wa llace 1 capsule [facility] Fenofibrate 2017-01-01 02:46:50 Yes Catie Henderson 1 tablet with a meal [facility] Atenolol 2017-01-01 02:46:50 Yes Catie Henderson 1 tablet [facility] Paroxetine HCl 2017-01-01 02:46:50 Yes Catie Henderson 1 tablet in the morning [facility] Glimepiride 2017-01-01 02:46:50 Yes Catie Henderson 1 tablet with breakfast or the first main meal of the day [facility] Metformin HCl 2017-01-01 02:46:50 Yes Catie Henderson 1 tablet with meals [facility] Tizanidine HCl 2017-01-01 02:46:50 Yes Catie Henderson 1 tablet as needed [facility] Lisinopril 2017-01-01 02:46:50 Yes Catie Henderson 1 tablet [facility] Gabapentin 2017-01-01 02:46:50 Yes Catie Henderson 2 capsules [facility] Rheumate 2016-12-30 00:00:00 Yes James Mcrae 1 tabelt [facility] Gabapentin 2016-12-24 02:45:37 Yes Catie Henderson 1 capsule [facility] Tylenol 2016-12-24 02:45:37 Yes Catie Henderson 2 tablets as needed [facility] Flu/Cold Medicine 2016-06-26 02:45:51 Yes Catie Henderson as directed [facility] Ranitidine & Diet Manage Prod 2016-04-03 04:02:20 Yes Tapia as directed [facility] Macrobid 2015-11-08 02:58:29 Yes Wajeeha Elidia 1 capsule with food [facility] Tramadol-Acetaminophen 2015-07-06 03:02:14 Yes Wajeeha Y ousaf 1 tablets as needed [facility] Gabapentin 2015-07-06 03:02:14 Yes Wajeeha Elidia TAKE ONE CAPSULE BY MOUTH DAILY FOR 3 DAYS THEN TAKE TWO CAPSULES BY MOUTH DAILY FOR 3 DAYS THEN TAKE THREE CAPSULES BY MOUTH DAILY Brent iarob Thomason MethylPREDNISolone 2015-07-06 03:02:14 Yes Wadaniloehrani Kimbroughsa f 1/2 tab daily x 4wks, then 1/2 tab QOD if tolerated. [facility] Methotrexate 2015-06-16 00:00:00 Yes Catie Henderson 1mL [facility] Cyclobenzaprine HCl 2014-10-21 03:05:21 Yes Gumea Elidia 1 tablet [facility] Methotrexate 2014-10-21 03:05:21 No Wajeeha Elidia TAKE 8 TABLETS BY MOUTH ONCE WEEKLY [facility] Nitrofurantoin Monohyd Macro 2014-10-21 03:05:21 Yes Bud Kimbroughsaf 1 capsule with food [facility] Gabapentin 2014-10-10 00:00:00 Yes Wajeeha Elidia 1 cap daily 3 day, 2 cap daily x 3 day and then take [address] [facility] Rasuvo 2014-10-10 00:00:00 Yes Gumea Elidia 0.4 ml [facility] Medrol (Remi) 2014-06-20 00:00:00 Yes Jseha Elidia as directed [facility] Hydroxychloroquine Sulfate 2014-06-20 00:00:00 Yes Alison Kimbroughsaf 1 tablet with food or milk [facility] MethylPREDNISolone 2014-01-13 03:48:39 Yes James Kimbroughsa f TAKE ONE TABLET BY MOUTH EVERY DAY [facility] Methotrexate 2013-10-21 03:20:06 Yes Catie Henderson [address] [facility] Enbrel SureClick 2013-08-23 00:00:00 Yes Catie Henderson 1 ml [facility] Vital Signs Vital Name Observation Time Observation Value Comments Source Weight 2019-07-19 19:15:00 [facility] Height 2019-07-19 19:15:00 [facility] Heart Rate 2019-07-19 19:15:00 [facility] Diastolic (mm Hg) 2019-07-19 19:15:00 [facility] [place] Systolic (mm Hg) 2019-07-19 19:15:00 [place] [place] Weight 2019-06-01 15:00:00 [facility] Height 2019-06-01 15:00:00 [facility] Temperature Oral (F) 2019-06-01 15:00:00 98.5 F [facility] [place] Heart Rate 2019-06-01 15:00:00 [facility] [place] Diastolic (mm Hg) 2019-06-01 15:00:00 [facility] [place] Systolic (mm Hg) 2019-06-01 15:00:00 Kristian rial [place] Weight 2019-04-19 17:00:00 [facility] [place] Height 2019-04-19 17:00:00 [facility] [place] Temperature Oral (F) 2019-04-19 17:00:00 97.6 F [facility] [place] Heart Rate 2019-04-19 17:00:00 [facility] [place] Diastolic (mm Hg) 2019-04-19 17:00:00 [facility] [place] Systolic (mm Hg) 2019-04-19 17:00:00 Kristian rial [place] Weight 2019-01-15 17:00:00 [facility] [place] Height 2019-01-15 17:00:00 [facility] [place] Temperature Oral (F) 2019-01-15 17:00:00 98.9 F [facility] Heart Rate 2019-01-15 17:00:00 [facility] [place] Diastolic (mm Hg) 2019-01-15 17:00:00 [facility] Systolic (mm Hg) 2019-01-15 17:00:00 Kristian rial [place] Weight 2018-10-15 16:00:00 [facility] [place] Height 2018-10-15 16:00:00 [facility] Temperature Oral (F) 2018-10-15 16:00:00 98.7 F [facility] [place] Heart Rate 2018-10-15 16:00:00 [facility] [place] Diastolic (mm Hg) 2018-10-15 16:00:00 [facility] Systolic (mm Hg) 2018-10-15 16:00:00 Kristian [facility] Weight 2018-07-16 16:15:00 [facility] [place] Height 2018-07-16 16:15:00 [facility] [place] Temperature Oral (F) 2018-07-16 16:15:00 98.4 F [facility] Heart Rate 2018-07-16 16:15:00 [facility] [place] Diastolic (mm Hg) 2018-07-16 16:15:00 [facility] Systolic (mm Hg) 2018-07-16 16:15:00 Kristian rial [place] Weight 2018-03-30 17:15:00 [facility] [place] Height 2018-03-30 17:15:00 [facility] [place] Temperature Oral (F) 2018-03-30 17:15:00 98.2 F [facility] [place] Heart Rate 2018-03-30 17:15:00 [facility] [place] Diastolic (mm Hg) 2018-03-30 17:15:00 [facility] [place] Systolic (mm Hg) 2018-03-30 17:15:00 Kristian rial [facility] Weight 2017-10-23 15:15:00 [facility] [place] Height 2017-10-23 15:15:00 [facility] Temperature Oral (F) 2017-10-23 15:15:00 98.8 F [facility] Heart Rate 2017-10-23 15:15:00 [facility] Diastolic (mm Hg) 2017-10-23 15:15:00 [facility] [place] Systolic (mm Hg) 2017-10-23 15:15:00 Kristian rial [place] Weight 2017-06-19 15:15:00 [facility] Height 2017-06-19 15:15:00 [facility] [place] Temperature Oral (F) 2017-06-19 15:15:00 96.1 F [facility] [place] Heart Rate 2017-06-19 15:15:00 [facility] [place] Diastolic (mm Hg) 2017-06-19 15:15:00 [facility] [place] Systolic (mm Hg) 2017-06-19 15:15:00 Kristian sindy [facility] Weight 2017-03-20 15:45:00 [facility] Height 2017-03-20 15:45:00 [facility] Temperature Oral (F) 2017-03-20 15:45:00 97.4 F [facility] [place] Heart Rate 2017-03-20 15:45:00 [facility] [place] Diastolic (mm Hg) 2017-03-20 15:45:00 [facility] [place] Systolic (mm Hg) 2017-03-20 15:45:00 Kristian rial [place] Weight 2016-12-30 19:30:00 [facility] [place] Height 2016-12-30 19:30:00 [facility] Temperature Oral (F) 2016-12-30 19:30:00 99.3 F [facility] [place] Heart Rate 2016-12-30 19:30:00 [facility] Diastolic (mm Hg) 2016-12-30 19:30:00 [facility] [place] Systolic (mm Hg) 2016-12-30 19:30:00 Kristian rial [place] Weight 2016-12-19 15:00:00 [facility] Height 2016-12-19 15:00:00 [facility] Temperature Oral (F) 2016-12-19 15:00:00 96.7 F [facility] Heart Rate 2016-12-19 15:00:00 [facility] Diastolic (mm Hg) 2016-12-19 15:00:00 [facility] [place] Systolic (mm Hg) 2016-12-19 15:00:00 Kristian rial [facility] Weight 2016-09-18 16:15:00 [facility] Height 2016-09-18 16:15:00 [facility] [place] Temperature Oral (F) 2016-09-18 16:15:00 98.6 F [facility] Heart Rate 2016-09-18 16:15:00 [facility] Diastolic (mm Hg) 2016-09-18 16:15:00 [facility] [place] Systolic (mm Hg) 2016-09-18 16:15:00 Kristian rial [place] Weight 2016-06-18 16:15:00 [facility] Height 2016-06-18 16:15:00 [facility] Temperature Oral (F) 2016-06-18 16:15:00 98.3 F [facility] Heart Rate 2016-06-18 16:15:00 [facility] Diastolic (mm Hg) 2016-06-18 16:15:00 [facility] [place] Systolic (mm Hg) 2016-06-18 16:15:00 Kristian rial [facility] Weight 2016-03-18 17:00:00 [facility] [place] Height 2016-03-18 17:00:00 [facility] Temperature Oral (F) 2016-03-18 17:00:00 97.5 F [facility] [place] Heart Rate 2016-03-18 17:00:00 [facility] [place] Diastolic (mm Hg) 2016-03-18 17:00:00 [facility] Systolic (mm Hg) 2016-03-18 17:00:00 Kristian rial [facility] Weight 2016-02-26 17:00:00 [facility] Height 2016-02-26 17:00:00 [facility] Temperature Oral (F) 2016-02-26 17:00:00 97.5 F [facility] Heart Rate 2016-02-26 17:00:00 [facility] [place] Diastolic (mm Hg) 2016-02-26 17:00:00 [facility] Systolic (mm Hg) 2016-02-26 17:00:00 Kristian rial [place] Weight 2015-11-28 13:30:00 [facility] Height 2015-11-28 13:30:00 [facility] Temperature Oral (F) 2015-11-28 13:30:00 98.4 F [facility] [place] Heart Rate 2015-11-28 13:30:00 [facility] Diastolic (mm Hg) 2015-11-28 13:30:00 [facility] [place] Systolic (mm Hg) 2015-11-28 13:30:00 Kristian rial [place] Weight 2015-11-01 13:00:00 [facility] Height 2015-11-01 13:00:00 [facility] Temperature Oral (F) 2015-11-01 13:00:00 98.8 F [facility] [place] Heart Rate 2015-11-01 13:00:00 [facility] Diastolic (mm Hg) 2015-11-01 13:00:00 [facility] [place] Systolic (mm Hg) 2015-11-01 13:00:00 Kristian rial [place] Weight 2015-09-28 15:30:00 [facility] [place] Height 2015-09-28 15:30:00 [facility] [place] Temperature Oral (F) 2015-09-28 15:30:00 99.2 F [facility] [place] Heart Rate 2015-09-28 15:30:00 [facility] [place] Diastolic (mm Hg) 2015-09-28 15:30:00 [facility] [place] Systolic (mm Hg) 2015-09-28 15:30:00 Kristian rial [place] Weight 2015-06-29 15:30:00 [facility] [place] Height 2015-06-29 15:30:00 [facility] Temperature Oral (F) 2015-06-29 15:30:00 98.3 F [facility] [place] Heart Rate 2015-06-29 15:30:00 [facility] Diastolic (mm Hg) 2015-06-29 15:30:00 [facility] [place] Systolic (mm Hg) 2015-06-29 15:30:00 Kristian sindy [facility] Weight 2014-12-20 07:07:00 [facility] [place] Heart Rate 2014-12-20 07:07:00 [facility] [place] Respitory Rate 2014-12-20 07:07:00 [facility] Systolic (mm Hg) 2014-12-20 07:07:00 Kristian rial [facility] Diastolic (mm Hg) 2014-12-20 07:07:00 [facility] [place] Weight 2014-10-10 14:15:00 [facility] [place] Height 2014-10-10 14:15:00 [facility] Temperature Oral (F) 2014-10-10 14:15:00 98.1 F [facility] [place] Heart Rate 2014-10-10 14:15:00 [facility] Diastolic (mm Hg) 2014-10-10 14:15:00 [facility] [place] Systolic (mm Hg) 2014-10-10 14:15:00 Kristian rial [facility] Weight 2014-06-20 14:30:00 [facility] Height 2014-06-20 14:30:00 [facility] Temperature Oral (F) 2014-06-20 14:30:00 98.9 F [facility] [place] Heart Rate 2014-06-20 14:30:00 [facility] [place] Diastolic (mm Hg) 2014-06-20 14:30:00 [facility] Systolic (mm Hg) 2014-06-20 14:30:00 Kristian rial [place] Weight 2014-03-21 15:30:00 [facility] [place] Height 2014-03-21 15:30:00 [facility] [place] Temperature Oral (F) 2014-03-21 15:30:00 99.4 F [facility] Heart Rate 2014-03-21 15:30:00 [facility] Diastolic (mm Hg) 2014-03-21 15:30:00 [facility] [place] Systolic (mm Hg) 2014-03-21 15:30:00 Kristian rial [place] Weight 2014-01-11 17:15:00 [facility] [place] Height 2014-01-11 17:15:00 [facility] Temperature Oral (F) 2014-01-11 17:15:00 98.8 F [facility] Heart Rate 2014-01-11 17:15:00 [facility] Diastolic (mm Hg) 2014-01-11 17:15:00 [facility] [place] Systolic (mm Hg) 2014-01-11 17:15:00 Kristian rial [facility] Weight 2013-10-11 15:15:00 [facility] Height 2013-10-11 15:15:00 [facility] [place] Temperature Oral (F) 2013-10-11 15:15:00 97.3 F [facility] [place] Heart Rate 2013-10-11 15:15:00 [facility] [place] Diastolic (mm Hg) 2013-10-11 15:15:00 [facility] Systolic (mm Hg) 2013-10-11 15:15:00 Kristian rial [place] Weight 2013-08-23 15:15:00 [facility] [place] Height 2013-08-23 15:15:00 [facility] [place] Temperature Oral (F) 2013-08-23 15:15:00 98.9 F [facility] [place] Heart Rate 2013-08-23 15:15:00 [facility] Diastolic (mm Hg) 2013-08-23 15:15:00 [facility] [place] Systolic (mm Hg) 2013-08-23 15:15:00 Kristian rial [facility] Procedures This patient has no known procedures. Encounters Start Date/Time End Date/Time En[facility] Source 2019-09-14 07:55:00 2019-09-14 07:55:00 Outpatient James Mcrae MD [place] [id number] Viraj Mcrae MD 2019-07-19 14:15:00 2019-07-19 14:15:00 Outpatient James Mcrae MD PA [id number] Viraj Mcrae MD 2019-06-28 11:20:00 2019-06-28 11:20:00 Outpatient James Mcrae MD PA [id number] Viraj Mcrae MD 2019-06-01 10:00:00 2019-06-01 10:00:00 Outpatient James Mcrae MD PA [id number] Viraj Mcrae MD 2019-05-11 13:40:00 2019-05-11 13:40:00 Outpatient MD MEGAN Sorto MD PA [id number] Viraj Mcrae MD 2019-04-19 12:09:00 2019-04-19 12:09:00 Outpatient MD MEGAN Sorto MD PA [id number] Viraj Mcrae MD 2019-04-19 11:00:00 2019-04-19 11:00:00 Outpatient James Mcrae MD PA [id number] Viraj Mcrae MD 2019-02-01 11:20:00 2019-02-01 11:20:00 Outpatient MD MEGAN Sorto MD PA [id number] Viraj Mcrae MD 2019-01-15 11:00:00 2019-01-15 11:00:00 Outpatient James Mcrae MD PA [id number] Viraj Mcrae MD 2018-11-20 10:32:00 2018-11-20 10:32:00 Outpatient MD MEGAN Ribeiro MD PA [id number] Viraj Mcrae MD 2018-10-15 11:00:00 2018-10-15 11:00:00 Outpatient James Mcrae MD PA [id number] Viraj Mcrae MD 2018-10-01 15:45:00 2018-10-01 15:45:00 Outpatient James Mcrae MD PA [id number] Viraj Mcrae MD 2018-08-05 08:00:00 2018-09-03 23:59:00 Outpatient Catie Henderson [id number] 2018-08-18 09:14:00 2018-08-18 09:14:00 Outpatient James Mcrae MD PA [id number] Viraj Mcare MD 2018-07-28 13:45:00 2018-07-28 13:45:00 Outpatient James Mcrae MD PA [id number] Viraj Mcrae MD 2018-07-16 11:15:00 2018-07-16 11:15:00 Outpatient MD MEGAN Ribeiro MD PA [id number] Viraj Mcrae MD 2018-06-08 11:36:00 2018-06-08 11:36:00 Outpatient James GUZMAN [id number] Viraj Mcrae MD 2018-03-30 11:15:00 2018-03-30 11:15:00 Outpatient James Mcrae MD PA [id number] Viraj Mcrae MD 2018-02-25 13:09:00 2018-02-25 13:09:00 Outpatient James GUZMAN [id number] Viraj Mcrae MD 2018-01-13 16:52:00 2018-01-13 16:52:00 Outpatient James Mcrae MD PA [id number] Viraj Mcrae MD 2017-12-31 14:45:00 2017-12-31 14:45:00 Outpatient James GUZMAN [id number] Viraj Mcrae MD 2017-12-02 10:44:00 2017-12-02 23:59:00 Outpatient Flynn Covarrubias Q [facility] [id number] 2017-10-23 10:15:00 2017-10-23 10:15:00 Outpatient James Mcrae MD PA [id number] Viraj Mcrae MD 2017-09-30 16:51:00 2017-09-30 16:51:00 Outpatient James Mcrae MD PA [id number] Viraj Mcrae MD 2017-07-07 08:25:00 2017-07-07 08:25:00 Outpatient James GUZMAN [id number] Viraj Mcrae MD 2017-06-22 12:18:00 2017-06-22 12:18:00 Outpatient James Mcrae MD PA [id number] Viraj Mcrae MD 2017-06-19 10:15:00 2017-06-19 10:15:00 Outpatient James Mcrae MD PA [id number] Viraj Mcrae MD 2017-06-10 10:02:00 2017-06-10 10:02:00 Outpatient James Mcrae MD PA [id number] Viraj Mcrae MD 2017-04-10 14:56:00 2017-04-10 14:56:00 Outpatient James Mcrae MD PA [id number] Viraj Mcrae MD 2017-03-20 09:45:00 2017-03-20 09:45:00 Outpatient James Mcrae MD PA [id number] Viraj Mcrae MD 2016-12-30 14:30:00 2016-12-30 14:30:00 Outpatient James Mcrae MD PA [id number] Viraj Mcrae MD 2016-12-30 09:28:00 2016-12-30 09:28:00 Outpatient James Mcrae MD PA [id number] Viraj Mcrae MD 2016-12-19 10:46:00 2016-12-19 10:46:00 Outpatient James Mcrae MD PA [id number] Viraj Mcrae MD 2016-12-19 10:00:00 2016-12-19 10:00:00 Outpatient James Mcrae MD PA [id number] Viraj Mcrae MD 2016-09-18 11:15:00 2016-09-18 11:15:00 Outpatient Jaems Mcrae MD PA [id number] Viraj Mcrae MD 2016-09-06 09:14:00 2016-09-06 09:14:00 Outpatient James Mcrae MD PA [id number] Viraj Mcrae MD 2016-06-25 09:00:00 2016-06-25 09:00:00 Outpatient James Mcrae MD PA [id number] Viraj Mcrae MD 2016-06-20 08:50:00 2016-06-20 08:50:00 Outpatient James Mcrae MD PA [id number] GABBI Mcrae MD 2016-06-18 11:15:00 2016-06-18 11:15:00 Outpatient James Mcrae MD PA [id number] GABBI Mcrae MD 2016-03-18 11:00:00 2016-03-18 11:00:00 Outpatient MD James Sorto MD [id number] GABBI Mcrae MD 2016-02-26 11:00:00 2016-02-26 11:00:00 Outpatient MD James Sorto MD [id number] Viraj Mcrae MD 2015-11-28 08:30:00 2015-11-28 08:30:00 Outpatient MD James Sorto MD [id number] GABBI Mcrae MD 2015-11-01 08:00:00 2015-11-01 08:00:00 Outpatient MD James Sorto MD [id number] Viraj Mcrae MD 2015-10-13 10:29:00 2015-10-13 10:29:00 Outpatient MD James Sorto MD [id number] GABBI Mcrae MD 2015-10-12 12:52:00 2015-10-12 12:52:00 Outpatient MD James Sorto MD [id number] GABBI Mcrae MD 2015-09-28 10:30:00 2015-09-28 10:30:00 Outpatient MD James Sorto MD [id number] GABBI Mcrae MD 2015-07-05 16:06:00 2015-07-05 16:06:00 Outpatient MD James Sorto MD [id number] GABBI Mcrae MD 2015-06-29 10:30:00 2015-06-29 10:30:00 Outpatient MD James Sorto MD [id number] GABBI Mcrae MD 2015-06-16 14:28:00 2015-06-16 14:28:00 Outpatient MD James Sorto MD [id number] GABBI Mcrae MD 2015-05-04 13:13:00 2015-05-04 13:13:00 Outpatient MD James Sorto MD [id number] GABBI Mcrae MD 2014-12-20 02:06:00 2014-12-20 03:27:00 Outpatient Pillai, Cat V inh MHSE MHSE [id number] 2014-10-10 09:15:00 2014-10-10 09:15:00 Outpatient MD James Sorto MD [id number] Viraj Mcrae MD 2014-06-20 09:30:00 2014-06-20 09:30:00 Outpatient MD James Sorto MD [id number] GABBI Mcrae MD 2014-03-21 09:30:00 2014-03-21 09:30:00 Outpatient MD James Sorto MD [id number] GABBI Mcrae MD 2014-03-16 09:20:00 2014-03-16 09:20:00 Outpatient MD James Sorto MD [id number] GABBI Mcrae MD 2014-03-08 08:49:00 2014-03-08 08:49:00 Outpatient MD James oSrto MD [id number] GABBI Mcrae MD 2014-01-12 17:42:00 2014-01-12 17:42:00 Outpatient MD James Sorto MD [id number] GABBI Mcrae MD 2014-01-11 11:15:00 2014-01-11 11:15:00 Outpatient MD James Sorto MD [id number] GABBI Mcrae MD 2013-12-20 14:00:00 2013-12-20 14:00:00 Outpatient MD James Sorto MD [id number] Viraj Mcrae MD 2013-12-13 17:08:00 2013-12-13 17:08:00 Outpatient MD James Sorto MD [id number] Viraj Mcrae MD 2013-10-15 17:06:00 2013-10-15 17:06:00 Outpatient MD James Sorto MD [id number] Viraj Mcrae MD 2013-10-14 16:33:00 2013-10-14 16:33:00 Outpatient MD James Sorto MD [id number] Viraj Mcrae MD 2013-10-13 12:53:00 2013-10-13 12:53:00 Outpatient MD James Sorto MD [id number] GABBI Mcrae MD 2013-10-11 10:15:00 2013-10-11 10:15:00 Outpatient MD James Sorto MD [id number] Viraj Mcrae MD 2013-09-03 14:48:00 2013-09-03 14:48:00 Outpatient MD James Sorto MD [id number] Viraj Mcrae MD 2013-08-23 10:15:00 2013-08-23 10:15:00 Outpatient MD James Sorto MD [id number] Viraj Mcrae MD Results Test Description Test Time Test Comments Results Result Comments Source SCR MAMM BILATERAL DINA CAD DIGITAL 2019-09-22 08:12:47 - SCR MAMM BILATERAL DINA CAD DIGITALBILATERAL DIGITAL SCREENING MAMMOGRAM 3D/2D WITH CAD: 09/21/2019CLINICAL: Asymptomatic. Digital breast tomosynthesis was performed in addition to routine CC and MLO views. Current mammographic images were evaluated by either a [employer] M-Vu or a People[employer] ImageChecker CAD (computer aided detection system). Comparison is made to exams dated 07/03/2018 mammogram, 07/24 mammogram, and 05/29/2015 mammogram - [facility]-. There are scattered fibroglandular tissues in both breasts. There are benign vascular calcifications and calcifications in both breasts. There also are benign densities in the right breast. Additionally, there is a benign density in the left breast. No suspicious mass, architectural distortion, malignant type calcification, or lymph node abnormality detected. Breast architecture is stable compared to prior exams.IMPRESSION: BENIGNThere is no mammographic evidence of malignancy. Resume annual screening mammography in one year. Kervin Le M.D. ss/penrad:09/22/2019 08:12:47 Entry: cl - 09/22/2019 08:12:47Imaging Technologist: Funmilayo CARRILLO, [facility]- FWletter sent: BIRADS 1-2 Normal Mammogram BI-RADS: 2 Benign SCR MAMM BILATERAL DINA CAD DIGITAL 2018-07-06 09:34:04 - SCR MAMM BILATERAL DINA CAD DIGITALBILATERAL DIGITAL SCREENING MAMMOGRAM 3D/2D WITH CAD: 07/03/2018CLINICAL: Asymptomatic. Digital breast tomosynthesis was performed in addition to routine CC and MLO views. Current mammographic images were evaluated by either a [employer] M-Vu or a Panelflycker CAD (computer aided detection system). Comparison is made to exams dated 07/24/2016 mammogram, 05/28 mammogram, and [facility] There are scattered fibroglandular tissues in both breasts. There are benign vascular calcifications and calcifications in both breasts. There also are benign densities in the right breast. Additionally, there is a benign density in the left breast. No suspicious mass, architectural distortion, malignant type calcification, or lymph node abnormality detected. Breast architecture is stable compared to prior exams.IMPRESSION: BENIGNThere is no mammographic evidence of malignancy. Resume annual screening mammography in one year. Kervin Le M.D. ss/penrad:07/06/2018 09:34:04 Smoking Tobacco Packing Machine Hand: Vee CARRILLO, [facility]-FWletter sent: BIRADS 1-2 Normal Mammogram BI-RADS: 2 Benign
--- OUTSIDE RECORDS SUMMARY | 2019-10-29 11:38 | XMS REPORT ---
Author Author MIKAL Henderson Organization [employer] Address Unknown Phone Unavailable Care Team Providers Care Brim Edge Trimmer Name Role Phone Catie Henderson Unavailable Allergies, [...] Instructions Start Date End Date Status Dosage Lisinopril [facility] [address]-41 10 mg Orally Once a day Active 1 tablet NIFEdipine [facility] [address]-97 30 MG Orally Once a day Active as directed Glimepiride [facility] [address]-80 1 MG Orally Once a day Active 1 tablet with breakfast or the first main meal of the day Tylenol [facility] [address]-00 325 MG Orally every 6 hrs Active 2 tablets as needed Folic Acid [facility] [address]-73 1 MG Orally Once a day Active 2 tablets MethylPREDNISolone [facility] 44836681816 4 mg as needed A ctive 1 tablet Flu/Cold Medicine [facility] 0 500-4-60 MG Orally Ac tive as directed Paroxetine HCl [facility] [address]-26 20 MG Orally Once a day Active 1 tablet in the morning Gabapentin [facility] 50859425595 300 mg once a day Active 1 capsule Losartan Potassium-HCTZ [facility] [address]-69 100-12.5 MG Orally Onc e a day Active 1 tablet Fenofibrate [facility] [address]-46 54 MG Orally Once a day Active 1 tablet with a meal Tizanidine HCl [facility] [address]-76 4 MG Orally every 8 hrs Active 1 tablet as needed Levothyroxine Sodium [facility] [address]-68 75 MCG Orally Once a day Active 1 tablet on an empty stomach in the morning Ranitidine & Diet Manage Prod NDC 0 150 MG Orally once a day Active as directed Methotrexate NDC 0 25mg/1mL Subcutaneous Once a week Active 1mL Metformin HCl [facility] [address]-72 500 MG Orally Twice a day Active 1 tablet with meals Atenolol [facility] [address]-98 50 MG Orally twice a day Active 1 tablet Atorvastatin Calcium [facility] [address]-48 10 MG Orally Once a day Active 1 tablet Hydroxychloroquine Sulfate [facility] 26285633174 200 mg twice a day Active TAKE ONE TABLET BY MOUTH TWICE A DAY WITH FOOD Vital Signs Date/Time: June 18, 2016 BMI 24.94 Index Weight 132 lbs Height 61 in Temperature 98.3 F Cardiac Monitoring Heart Rate 72 /min Blood Pressure Diastolic 68 mm Hg Blood Pressure Systolic 122 mm Hg Results No Known Results Summary Purpose [employer] Submission
--- OUTSIDE RECORDS SUMMARY | 2019-10-29 11:38 | XMS REPORT | Summary of Care ---
Author Author [facility] Organization [facility] Address Unknown Phone Unavailable Encounter [facility](PHILIP) [id number] Date(s): 12/20/14 - 12/20/14 [facility] [address] [place] [address]- [phone] Discharge Disposition: Non-Emergent Attending Physician: Marcia Pillai DO Vital Signs Most recent to 1 oldest [Reference Range]: Blood Pressure 152/82 mmHg [90-140/60-90 mmHg] *HI* (12/20/14 2:07 AM) Most recent to 1 oldest [Reference Range]: Respiratory Rate 18 BRMIN [14-20 BRMIN] (12/20/14 2:07 AM) Most recent to 1 oldest [Reference Range]: Peripheral Pulse 88 bpm Rate [60-100 bpm] (12/20/14 2:07 AM) Most recent to 1 oldest [Reference Range]: Weight 79.545 kg (12/20/14 2:07 AM) Problem List No data available for this [...] 365 Days No; Reg Smoking Cessation Counseli ng No Assessment and Plan No data available for this section
--- OUTSIDE RECORDS SUMMARY | 2019-10-29 11:38 | XMS REPORT | Summary of Care ---
Author [facility] Address Unknown Phone Unavailable Encounter Malkantr_shubham([facility]) [id number] Date(s): 08/05/18 - 09/03/18 [facility] Discharge Disposition: Home or Self Care Attending Physician: Catie Henderson Vital Signs No data available for this section Problem List No data available for this section Allergies, Adverse Reactions, Alerts No Known Medication Allergies Medications No data available for this section Results No data available for this section Immunizations No data available for this section Procedures No data available for this section Social History Social History Type Response Smoking Status Never smoker; Exposure to T obacco Smoke None; Cigarette Smoking Last 365 Days No; Reg Smoking Cessation Counseli ng No entered on: 12/20/14 Assessment and Plan No data available for this section
[2019-10-29 12:21] VITALS: BP 149/70
--- NOTE | 2019-10-29 12:32 | Emergency Department Note ---
History of Present Illnes History of Present Illness Chief Complaint: Laceration History of Present Illness This is a 69 year old female hx of RA on Methotrexate fell on a wooden object, lacerated and skin tear, avulsion on left medial distal gee, L shape 7 cm on each side. Historian: Patient, Family Member Arrival Mode: Car Commodity Director Required: Yes (daughter helps with the conversation) Onset (how long ago): hour(s) Severity: moderate Duration (how long): hour(s) Timing of current episode: constant Progression: unchanged Chronicity: new Relieving factors: none Exacerbating factors: none Associated symptoms: Reports denies other symptoms Treatments prior to arrival: none Past Medical/Family History Physician Review I have reviewed the patient's past medical and family history. Any updates have been documented here. Past Medical History Recent Fever: No Clinical Suspicion of Infectio: No New/Unexplained Change in Ment: No Past Medical History: Hypertension, Diabetes, Hypothyroidism, Hyperlipedemia Other Medical History: RA Past Surgical History: Hysterectomy Other Surgery: Right foot surgery Social History Smoking Cessation: Never Smoker Counseling Performed: No Alcohol Use: None Any Illegal Drug Use: No Physically hurt or threatened: No Other Any Pre-Existing Lines (PICC,: No Review of Systems Review of Systems Constitutional: Reports no symptoms EENTM: Reports no symptoms Cardiovascular: Reports no symptoms Respiratory: Reports no symptoms Gastrointestinal: Reports no symptoms Genitourinary: Reports no symptoms Musculoskeletal: Reports no symptoms Integumentary: Reports as per HPI Neurological: Reports no symptoms Psychological: Reports no symptoms Endocrine: Reports no symptoms Hematological/Lymphatic: Reports no symptoms Physical Exam Related Data Allergies: Coded Allergies: No Known Allergies (Unverified , 07/04/10) Triage Vital Signs Vital Signs Date Time Temp Pulse Resp B/P (MAP) Pulse Ox O2 Delivery O2 Flow Rate FiO2 10/29/19 10:45 97.9 58 15 158/68 99 Room Air Vital signs reviewed: Yes Physical Exam CONSTITUTIONAL Constitutional: Present well-developed, Present well-nourished HENT HENT: Present normocephalic, Present atraumatic, Present oropharynx clear/moist, Present nose normal HENT L/R: Present left ext ear normal, Present right ext ear normal EYES Eyes: Reports PERRL, Reports conjunctivae normal NECK Neck: Present ROM normal PULMONARY Pulmonary: Present effort normal, Present breath sounds normal CARDIOVASCULAR Cardiovascular: Present regular rhythm, Present heart sounds normal, Present capillary refill normal, Present normal rate GASTROINTESTINAL Abdominal: Present soft, Present nontender, Present bowel sounds normal GENITOURINARY Genitourinary: Present exam deferred SKIN Skin: Present warm, Present dry, Present other (increased pigmentation both legs, sparsed hair, brittle skin) MUSCULOSKELETAL Musculoskeletal: Present ROM normal NEUROLOGICAL Neurological: Present alert, Present oriented x 3, Present no gross motor or sensory deficits PSYCHOLOGICAL Psychological: Present mood/affect normal, Present judgement normal Procedures Laceration Laceration: Laceration 1 Site: lower extremity (left distal medial gee) Side: left Size (cm): 7 Description: flap, irregular, other (L shape, skin tear and flap) Depth: simple, single layer Local anesthesia: lidocaine 1% Amount of anesthesia (mL): 18 Pre-repair: wound exposed, irrigated extensively, deep structures intact, wound margins revised Skin layer closed with: other (3.0 prolene) Size (cm): other (7 x 7 cm) Number of sutures: 20 Technique: simple, interrupted Additional comments the skin tear is too thin in the middle and likely not viable but I still closed to give pt benefit of doubt Assessment & Plan Medical Decision Making MDM laceration, skin avulsion, skin tear, high risk of infection due to her age and being on , methotrexate. Reassessment Reassessment time: 12:03 Reassessment no bleeding Assessment & Plan Final Impression: (1) Acute pain due to trauma (2) Laceration of left lower leg (3) Laceration of left lower leg with complication Depart Disposition: HOME, SELF-CARE Last Vital Signs Date Time Temp Pulse Resp B/P (MAP) Pulse Ox O2 Delivery O2 Flow Rate FiO2 10/29/19 10:45 97.9 58 15 158/68 99 Room Air Home Meds Reported Medications [Nifedipine Er] No Conflict Check, 1 TAB PO BEDTIME 11/16/13 [Atenolol] No Conflict Check, 1 TAB PO BEDTIME 11/16/13 [Paroxetine] No Conflict Check, 1 TAB PO BEDTIME 11/16/13 [Fenofibrate] No Conflict Check, 1 TAB PO BEDTIME 11/16/13 [Atorvastatin] No Conflict Check, 1 TAB PO BEDTIME 11/16/13 [Methotrexate] No Conflict Check, 1 TAB PO TID 11/16/13 [Lisinopril] No Conflict Check, 1 TAB PO DAILY 11/16/13 [Methylprednisolone] No Conflict Check, 1 TAB PO DAILY 11/16/13 [glimepiride] No Conflict Check, 1 TAB PO DAILY 11/16/13 [levothyroxine] No Conflict Check, 1 TAB PO DAILY 11/16/13 Cyclobenzaprine Hcl (CYCLOBENZAPRINE HCL) 10 Mg Tablet, 10 MG PO TID, TAB 11/16/13 Folic Acid (FOLIC ACID) 1 Mg Tablet, 1 MG PO DAILY, #30 TAB 11/16/13 [ranitidine] No Conflict Check, 1 TAB PO BID 11/16/13 Tramadol/Acetaminophen (TRAMADOL-ACETAMINOPHN 37.5-325) 1 Ea Tab, 1 TAB PO PRN, EACH 11/16/13 Medications in the ED Lidocaine HCl 40 ml STK-MED ONCE .ROUTE ; Start 10/29/19 at 11:14; Stop 10/29/19 at 11:10; Status DC Bacitracin Zinc 2 ea STK-MED ONCE TP ; Start 10/29/19 at 11:25; Stop 10/29/19 at 11:19; Status DC Lidocaine HCl 10 ml ONCE ONCE INJ ; Start 10/29/19 at 11:30; Stop 10/29/19 at 11:31; Status DC Bacitracin Zinc 2 ea ONCE ONCE TP ; Start 10/29/19 at 11:30; Stop 10/29/19 at 11:31; Status DC Physician Attestation Provider Attestation clindamycin 300 tid for 10 days, tramadol/apap # 30. no PARAOPTOMETRIC record available. f/u PCP 1 week for wound evaluation, suture removal in 2 weeks STACIE QUICK MD Oct 29, 2019 12:32
== END 2019-10-29 12:28 | disposition home or self-care (01) ==
LOC: FSED 10:15
DX: S81.812A Laceration without foreign body, left lower leg, initial encounter (principal); W45.8XXA Other foreign body or object entering through skin, initial encounter; Y92.008 Other place in unspecified non-institutional (private) residence as the place of occurrence of the external cause; I10 Essential (primary) hypertension; E78.5 Hyperlipidemia, unspecified; E03.9 Hypothyroidism, unspecified; M06.9 Rheumatoid arthritis, unspecified
CPT/HCPCS: 12002; 96372; 99283; J2001

== ENCOUNTER 2020-07-26 11:56 | Inpatient (IN) | payer OTHER, MEDICARE ==
[~2020-07-26] VITALS: Ht 160 cm; Wt 55.8 kg
[2020-07-26] MEDS ORDERED: PIPERACILLIN/TAZO 4.5 GM 100 ML IV ONE (13:00)
[2020-07-26] MEDS ORDERED: SODIUM CHLORIDE 0.9% 1000ML 1,000 ML IV SCH (13:00)
[2020-07-26] MEDS ORDERED: VANCOMYCIN 1GM/NS 250 ML 250 ML IV ONE (13:00)
[2020-07-26] MEDS ORDERED: SODIUM CHLORIDE 0.9% 1000ML 1,000 ML ONE (13:25)
[2020-07-26] MEDS ORDERED: PIPER-TAZ 3.375 GM 50 ML ONE (13:25)
[2020-07-26] MEDS ORDERED: VANCOMYCIN 1GM/NS 250 ML 250 ML ONE (13:25)
[2020-07-26] MEDS ORDERED: PIPER-TAZ 3.375 GM 50 ML IV STA (13:36)
[2020-07-26] MEDS ORDERED: MORPHINE SULFATE INJ 4 MG/ML INJ 1ML IV PRN (15:45)
[2020-07-26] MEDS ORDERED: ONDANSETRON HCL INJ 2MG/ML 2ML 2 MG/ML VIAL IV PRN (15:45)
[2020-07-26] MEDS ORDERED: MORPHINE SULFATE INJ 2 MG/ML SYR IV PRN (16:00)
[2020-07-26] MEDS ORDERED: AMITRIPTYLINE H10 MG PO (16:15)
[2020-07-26] MEDS ORDERED: CARVEDILOL12.5 MG PO (16:15)
[2020-07-26] MEDS ORDERED: BENICAR20 MG PO (16:15)
[2020-07-26] MEDS ORDERED: NORVASC5 MG PO (16:15)
[2020-07-26] MEDS ORDERED: TIZANIDINE HCL4 MG PO (16:17)
[2020-07-26] MEDS ORDERED: HYDROCHLOROTHIA25 MG (16:17)
[2020-07-26] MEDS ORDERED: PEPCID20 MG PO (16:18)
[2020-07-26] MEDS ORDERED: PLAQUENIL200 MG PO (16:19)
[2020-07-26] MEDS ORDERED: CARAFATE1 GM/10 ML PO (16:19)
[2020-07-26] MEDS ORDERED: METFORMIN HCL500 MG PO (16:20)
[2020-07-26] MEDS ORDERED: NEURONTIN100 MG PO (16:20)
[2020-07-26 17:20] VITALS: BP 129/50
[2020-07-26 17:38] VITALS: BP 129/50
[2020-07-26] MEDS: SODIUM CHLORIDE 0.9% 1000ML 1,000 ML IV SCH ×2 (17:38→23:45)
[2020-07-26 17:45] VITALS: BP 129/50
[2020-07-26 20:48] VITALS: BP 119/52
[2020-07-26 21:00] VITALS: BP 119/52
[2020-07-26] MEDS ORDERED: PAROXETINE HCL20 MG PO (21:14)
[2020-07-26] MEDS ORDERED: MEDROL4 MG PO (21:24)
[2020-07-26] MEDS ORDERED: SYNTHROID125 MCG PO (21:24)
[2020-07-26] MEDS ORDERED: ATORVASTATIN CA20 MG PO (21:24)
[2020-07-26] MEDS: FENOFIBRATE 48 MG TAB PO SCH (21:45)
[2020-07-26] MEDS ORDERED: FENOFIBRATE PO SCH (21:45)
[2020-07-26] MEDS: ATORVASTATIN 20 MG TAB PO SCH (22:00)
[2020-07-26] MEDS: CARVEDILOL 12.5 MG TAB PO SCH (22:00)
[2020-07-26] MEDS: AMITRIPTYLINE HCL 10 MG TAB PO SCH (22:00)
[2020-07-26] MEDS: PAROXETINE HCL 20 MG TAB PO SCH (22:00)
[2020-07-26] MEDS: AMLODIPINE BESYLATE 5 MG TAB PO SCH (22:00)
[2020-07-26] MEDS: CLINDAMYCIN 300MG 50 ML IV SCH (22:00)
[2020-07-26] MEDS: FOLIC ACID 1 MG TAB PO SCH (22:00)
[2020-07-26] MEDS: GABAPENTIN 100 MG CAP PO SCH (22:00)
[2020-07-27] VITALS (8 sets, daily range): BP systolic 105–135; BP diastolic 47–78
[2020-07-27] MEDS ORDERED: DEXTROSE 50% SYRINGE 50 ML IV PRN (00:15)
[2020-07-27 04:42] LABS: BASOPHILS % 0.6 % (0.0-1.0); EOSINOPHILS % 0.6 % (0.0-6.0); HEMATOCRIT 26.2 % (34.2-44.1); HEMOGLOBIN 8.7 g/dL (12.0-16.0); LYMPHOCYTES % 19.5 % (18.0-39.1); MEAN CORPUSCULAR HEMOGLOBIN 34.3 pg (28-32); MEAN CORPUSCULAR HGB CONC 33.2 g/dL (31-35); MEAN CORPUSCULAR VOLUME 103.1 fL (81-99); MONOCYTES # (AUTO) 0.5 (0.2-0.8); MONOCYTES % 9.7 % (4.4-11.3); NEUTROPHILS # (AUTO) 3.5 (2.1-6.9); NEUTROPHILS % 69.4 % (38.7-80.0); PLATELET COUNT 275 x10e3/uL (140-360); RED BLOOD COUNT 2.54 x10e6/uL (3.6-5.1); RED CELL DISTRIBUTION WIDTH 14.5 % (11.7-14.4)
[2020-07-27 05:05] LABS: ANION GAP 11.7 mmol/L (8-16); BLOOD UREA NITROGEN 29 mg/dL (7-26); BUN/CREATININE RATIO 34 (6-25); CALCIUM 8.3 mg/dL (8.4-10.2); CARBON DIOXIDE 21 mmol/L (22-29); CHLORIDE 113 mmol/L (98-107); CREATININE, SERUM 0.85 mg/dL (0.57-1.11); EST GLOMERULAR FILTRATION RATE > 60 ML/MIN (60-); GLUCOSE 105 mg/dL (74-118); POTASSIUM 3.7 mmol/L (3.5-5.1); SODIUM 142 mmol/L (136-145)
[2020-07-27 05:27] LABS: CHOL/HDL RATIO 2.4 (3.0-3.6)
[2020-07-27 05:30] LABS: MAGNESIUM 1.7 MG/DL (1.3-2.1); PHOSPHORUS 3.1 MG/DL (2.3-4.7)
[2020-07-27] MEDS: CLINDAMYCIN 300MG 50 ML IV SCH ×3 (05:45→23:06)
[2020-07-27] MEDS: LEVOTHYROXINE SODIUM 125 MCG TAB PO SCH (05:45)
[2020-07-27] MEDS ORDERED: ACETAMINOPHEN 325 MG TAB PO PRN (06:30)
[2020-07-27] MEDS ORDERED: DOCUSATE SODIUM 100 MG CAP PO PRN (06:30)
[2020-07-27] MEDS ORDERED: ONDANSETRON HCL INJ 2MG/ML 2ML 2 MG/ML VIAL IV PRN (06:30)
[2020-07-27] MEDS: INSULIN LISPRO 100 UNIT/1 ML 3ML VIAL SQ SCH ×4 (07:30→21:00)
[2020-07-27] MEDS ORDERED: FAMOTIDINE 20 MG TAB PO SCH (09:00)
[2020-07-27] MEDS: PIPERACILLIN/TAZOBAC 3.375 GM in SODIUM CHLORIDE 0.9% 50ML 50 ML IV SCH ×2 (09:04→16:48)
[2020-07-27] MEDS: HYDROCHLOROTHIAZIDE 25 MG TAB PO SCH (09:05)
[2020-07-27] MEDS: HYDROXYCHLOROQUINE SULFATE 200 MG TAB PO SCH (09:05)
[2020-07-27] MEDS: CARVEDILOL 12.5 MG TAB PO SCH ×2 (09:05→16:47)
[2020-07-27] MEDS: FAMOTIDINE 20 MG TAB PO SCH (09:05)
[2020-07-27] MEDS: GABAPENTIN 100 MG CAP PO SCH ×2 (09:05→16:47)
[2020-07-27] MEDS: SODIUM CHLORIDE 0.9% 1000ML 1,000 ML IV SCH ×4 (09:05→23:45)
[2020-07-27] MEDS: AMLODIPINE BESYLATE 5 MG TAB PO SCH ×2 (09:05→16:47)
[2020-07-27] MEDS: METHYLPREDNISOLONE 4 MG TAB PO SCH (10:30)
[2020-07-27] MEDS: MUPIROCIN 2% OINT 22 GM TUBE TOP SCH ×2 (10:30→16:48)
[2020-07-27] MEDS: BALSAM PERU/CASTOR OIL 60 GM OINT...G. TP SCH (11:36)
[2020-07-27] MEDS: COLLAGENASE 5 GM TUBE TP SCH (11:36)
[2020-07-27] MEDS ORDERED: ZOLPIDEM TARTRATE 5 MG TAB PO PRN (21:00)
[2020-07-27] MEDS: AMITRIPTYLINE HCL 10 MG TAB PO SCH (21:39)
[2020-07-27] MEDS: ATORVASTATIN 20 MG TAB PO SCH (21:40)
[2020-07-27] MEDS: PAROXETINE HCL 20 MG TAB PO SCH (21:40)
[2020-07-27] MEDS: FENOFIBRATE 48 MG TAB PO SCH (21:40)
[2020-07-27] MEDS: FOLIC ACID 1 MG TAB PO SCH (21:40)
[2020-07-28] VITALS (8 sets, daily range): BP systolic 120–134; BP diastolic 45–87
[2020-07-28] MEDS: PIPERACILLIN/TAZOBAC 3.375 GM in SODIUM CHLORIDE 0.9% 50ML 50 ML IV SCH ×3 (00:21→16:00)
[2020-07-28] MEDS: CLINDAMYCIN 300MG 50 ML IV SCH ×3 (06:01→23:00)
[2020-07-28] MEDS: LEVOTHYROXINE SODIUM 125 MCG TAB PO SCH (06:01)
[2020-07-28 07:29] LABS: MAGNESIUM 1.5 MG/DL (1.3-2.1); PHOSPHORUS 2.7 MG/DL (2.3-4.7)
[2020-07-28] MEDS: INSULIN LISPRO 100 UNIT/1 ML 3ML VIAL SQ SCH ×4 (07:30→20:16)
[2020-07-28] MEDS: SODIUM CHLORIDE 0.9% 1000ML 1,000 ML IV SCH ×3 (08:44→23:45)
[2020-07-28] MEDS: HYDROCHLOROTHIAZIDE 25 MG TAB PO SCH (08:52)
[2020-07-28] MEDS: CARVEDILOL 12.5 MG TAB PO SCH ×2 (08:52→17:50)
[2020-07-28] MEDS: GABAPENTIN 100 MG CAP PO SCH ×2 (08:52→17:50)
[2020-07-28] MEDS: AMLODIPINE BESYLATE 5 MG TAB PO SCH ×2 (08:52→17:50)
[2020-07-28] MEDS: HYDROXYCHLOROQUINE SULFATE 200 MG TAB PO SCH (08:52)
[2020-07-28] MEDS: METHYLPREDNISOLONE 4 MG TAB PO SCH (08:52)
[2020-07-28] MEDS: FAMOTIDINE 20 MG TAB PO SCH (08:52)
[2020-07-28] MEDS: COLLAGENASE 5 GM TUBE TP SCH (08:56)
[2020-07-28] MEDS: MUPIROCIN 2% OINT 22 GM TUBE TOP SCH ×2 (08:56→17:50)
[2020-07-28] MEDS: BALSAM PERU/CASTOR OIL 60 GM OINT...G. TP SCH (08:56)
[2020-07-28] MEDS ORDERED: ONDANSETRON HCL 4 MG ORAL DISINTEGRATING TAB PO PRN (12:15)
[2020-07-28] MEDS: PAROXETINE HCL 20 MG TAB PO SCH (20:33)
[2020-07-28] MEDS: AMITRIPTYLINE HCL 10 MG TAB PO SCH (20:33)
[2020-07-28] MEDS: FOLIC ACID 1 MG TAB PO SCH (20:33)
[2020-07-28] MEDS: ATORVASTATIN 20 MG TAB PO SCH (20:33)
[2020-07-28] MEDS: FENOFIBRATE 48 MG TAB PO SCH (20:33)
[2020-07-29 00:16] VITALS: BP 117/53
[2020-07-29 05:01] VITALS: BP 136/55
[2020-07-29] MEDS: LEVOTHYROXINE SODIUM 125 MCG TAB PO SCH (05:40)
[2020-07-29] MEDS: CLINDAMYCIN 300MG 50 ML IV SCH (05:40)
[2020-07-29] MEDS: INSULIN LISPRO 100 UNIT/1 ML 3ML VIAL SQ SCH ×2 (07:17→11:30)
[2020-07-29 07:41] VITALS: BP 131/50
[2020-07-29 07:44] VITALS: BP 131/50
[2020-07-29] MEDS: GABAPENTIN 100 MG CAP PO SCH (08:43)
[2020-07-29] MEDS: METHYLPREDNISOLONE 4 MG TAB PO SCH (08:43)
[2020-07-29] MEDS: HYDROCHLOROTHIAZIDE 25 MG TAB PO SCH (08:43)
[2020-07-29] MEDS: CARVEDILOL 12.5 MG TAB PO SCH (08:43)
[2020-07-29] MEDS: AMLODIPINE BESYLATE 5 MG TAB PO SCH (08:43)
[2020-07-29] MEDS: HYDROXYCHLOROQUINE SULFATE 200 MG TAB PO SCH (08:43)
[2020-07-29] MEDS: PIPERACILLIN/TAZOBAC 3.375 GM in SODIUM CHLORIDE 0.9% 50ML 50 ML IV SCH ×3 (08:43)
[2020-07-29] MEDS: FAMOTIDINE 20 MG TAB PO SCH (08:43)
[2020-07-29] MEDS ORDERED: MUPIROCIN22 GM TOP (10:35)
[2020-07-29] MEDS ORDERED: CEFUROXIME250 MG PO (10:35)
[2020-07-29] MEDS ORDERED: VENELEX OINTMEN60 GM TP (10:35)
[2020-07-29] MEDS ORDERED: CLINDAMYCIN HC150 MG PO (10:35)
[2020-07-29 12:01] VITALS: BP 123/58
== END 2020-07-29 13:36 | disposition home health service (06) | DRG 638 ==
LOC: FSED 12:20 → ERHOLD 15:36 → MED/SURG2 16:57
PROVIDERS: ADMIT Internal Medicine; ATTEND Internal Medicine
DX: E11.622 Type 2 diabetes mellitus with other skin ulcer (principal); L03.115 Cellulitis of right lower limb; L97.818 Non-pressure chronic ulcer of other part of right lower leg with other specified severity; I10 Essential (primary) hypertension; E03.9 Hypothyroidism, unspecified; E78.5 Hyperlipidemia, unspecified; M06.9 Rheumatoid arthritis, unspecified; M32.9 Systemic lupus erythematosus, unspecified; S80.212A Abrasion, left knee, initial encounter; S80.211A Abrasion, right knee, initial encounter; W01.0XXA Fall on same level from slipping, tripping and stumbling without subsequent striking against object, initial encounter; Y93.89 Activity, other specified; Y92.520 Airport as the place of occurrence of the external cause; Z79.84 Long term (current) use of oral hypoglycemic drugs
CPT/HCPCS: 36415; 80048; 80061; 82948; 83036; 83605; 83735; 84100; 85025; 87040; 87071; 87205; 96361; 99251; 99284; J2543; J3370; J7030; J7509; U0002

== ENCOUNTER 2021-07-21 17:21 | Emergency (ER) | payer MEDICARE, OTHER ==
[~2021-07-21] VITALS: Ht 157.5 cm; Wt 58.1 kg
[~2021-07-21 17:21] MED LIST changes: +AMITRIPTYLINE H10 MG PO; +ATORVASTATIN CA20 MG PO; +BENICAR20 MG PO; +CARAFATE1 GM/10 ML PO; +CARVEDILOL12.5 MG PO; +CEFUROXIME250 MG PO; +CLINDAMYCIN HC150 MG PO; +HYDROCHLOROTHIA25 MG; +MEDROL4 MG PO; +METFORMIN HCL500 MG PO; +MUPIROCIN22 GM TOP; +NEURONTIN100 MG PO; +NORVASC5 MG PO; +PAROXETINE HCL20 MG PO; +PEPCID20 MG PO; +PLAQUENIL200 MG PO; +SYNTHROID125 MCG PO; +TIZANIDINE HCL4 MG PO; +VENELEX OINTMEN60 GM TP
[2021-07-21] MEDS ORDERED: CEPHALEXIN500 MG PO (19:18)
[2021-07-21] MEDS ORDERED: BACTRIM DS TAB1 EACH PO (19:18)
== END 2021-07-21 19:40 | disposition home or self-care (01) ==
LOC: FSED 17:50
DX: S81.012A Laceration without foreign body, left knee, initial encounter (principal); W01.0XXA Fall on same level from slipping, tripping and stumbling without subsequent striking against object, initial encounter; Y93.01 Activity, walking, marching and hiking; Y92.89 Other specified places as the place of occurrence of the external cause; I10 Essential (primary) hypertension; E11.9 Type 2 diabetes mellitus without complications; E78.5 Hyperlipidemia, unspecified; E03.9 Hypothyroidism, unspecified; M32.9 Systemic lupus erythematosus, unspecified; M06.9 Rheumatoid arthritis, unspecified
CPT/HCPCS: 99283

== ENCOUNTER 2021-08-07 12:38 | Observation (INO) | payer MEDICARE, OTHER ==
[~2021-08-07] VITALS: Ht 157.5 cm; Wt 58.1 kg
[~2021-08-07 12:38] MED LIST changes: +BACTRIM DS TAB1 EACH PO; +CEPHALEXIN500 MG PO
[2021-08-07 13:50] LABS: BASOPHILS % 0.4 % (0.0-1.0); EOSINOPHILS # (AUTO) 0.1 (0.0-0.4); EOSINOPHILS % 0.9 % (0.0-6.0); HEMATOCRIT 35.6 % (34.2-44.1); HEMOGLOBIN 11.4 g/dL (12.0-16.0); LYMPHOCYTES # (AUTO) 1.1 (1.0-3.2); LYMPHOCYTES % 10.3 % (18.0-39.1); MEAN CORPUSCULAR HEMOGLOBIN 31.8 pg (28-32); MEAN CORPUSCULAR VOLUME 99.4 fL (81-99); MONOCYTES # (AUTO) 0.8 (0.2-0.8); MONOCYTES % 7.3 % (4.4-11.3); NEUTROPHILS # (AUTO) 8.5 (2.1-6.9); PLATELET COUNT 372 x10e3/uL (140-360); RED BLOOD COUNT 3.58 x10e6/uL (3.6-5.1); RED CELL DISTRIBUTION WIDTH 15.6 % (11.7-14.4)
[2021-08-07] MEDS: Vancomycin IV 1 GM in SODIUM CHLORIDE 0.9% 250ML 250 ML IV SCH (13:50)
[2021-08-07 14:12] LABS: ALBUMIN 2.7 g/dL (3.5-5.0); ALBUMIN/GLOBULIN RATIO 0.7 (0.8-2.0); ANION GAP 13.7 mmol/L (8-16); CREATININE, SERUM 0.73 mg/dL (0.57-1.11); POTASSIUM 3.7 mmol/L (3.5-5.1)
[2021-08-07] MEDS ORDERED: ONDANSETRON HCL INJ 2MG/ML 2ML 2 MG/ML VIAL IV PRN (14:45)
[2021-08-07] MEDS ORDERED: HYDROCODONE/APAP 5MG-325MG TAB PO PRN (14:45)
[2021-08-07 16:31] VITALS: BP 178/69
[2021-08-07] MEDS ORDERED: METHOTREXATE2.5 MG PO (17:02)
[2021-08-07] MEDS ORDERED: CLONIDINE HCL0.2 MG PO (17:02)
[2021-08-07] MEDS ORDERED: tylenol #3 PO (17:02)
[2021-08-07] MEDS ORDERED: OXYBUTYNIN CHLOR5 MG PO (17:02)
[2021-08-07] MEDS ORDERED: ULTRAM50 MG PO (17:02)
[2021-08-07 17:06] VITALS: BP 178/69
[2021-08-07 17:19] VITALS: BP 178/69
[2021-08-07] MEDS ORDERED: TRAMADOL HCL 50 MG TAB PO PRN (18:00)
[2021-08-07] MEDS ORDERED: ACETAMINOPHEN/CODEINE 300MG - 30MG TAB PO PRN (18:00)
[2021-08-07] MEDS: PAROXETINE HCL 20 MG TAB PO SCH (20:24)
[2021-08-07] MEDS: AMITRIPTYLINE HCL 10 MG TAB PO SCH (20:24)
[2021-08-07] MEDS: FOLIC ACID 1 MG TAB PO SCH (20:24)
[2021-08-07] MEDS: TIZANIDINE HCL 4 MG TAB PO SCH (20:25)
[2021-08-07 20:30] VITALS: BP 145/69
[2021-08-07 21:00] VITALS: BP 145/69
[2021-08-08] VITALS (8 sets, daily range): BP systolic 131–195; BP diastolic 63–95
[2021-08-08] MEDS ORDERED: CEFEPIME 1 GM in SODIUM CHLORIDE 0.9% 100 ML IV SCH ×2 (00:30→01:00)
[2021-08-08] MEDS ORDERED: SODIUM CHLORIDE 0.9% 250ML 250 ML ONE (01:38)
[2021-08-08] MEDS: Vancomycin IV 1 GM in SODIUM CHLORIDE 0.9% 250ML 250 ML IV SCH ×2 (02:29→17:46)
[2021-08-08] MEDS: CLONIDINE HCL 0.2 MG TAB PO SCH ×2 (04:53→17:39)
[2021-08-08] MEDS: LEVOTHYROXINE SODIUM 125 MCG TAB PO SCH (04:54)
[2021-08-08 05:48] LABS: BASOPHILS # (AUTO) 0.1 (0.0-0.1); BASOPHILS % 0.6 % (0.0-1.0); EOSINOPHILS # (AUTO) 0.1 (0.0-0.4); EOSINOPHILS % 1.4 % (0.0-6.0); HEMATOCRIT 32.2 % (34.2-44.1); HEMOGLOBIN 10.5 g/dL (12.0-16.0); LYMPHOCYTES # (AUTO) 1.2 (1.0-3.2); LYMPHOCYTES % 11.9 % (18.0-39.1); MEAN CORPUSCULAR HEMOGLOBIN 31.8 pg (28-32); MEAN CORPUSCULAR HGB CONC 32.6 g/dL (31-35); MEAN CORPUSCULAR VOLUME 97.6 fL (81-99); MONOCYTES # (AUTO) 0.7 (0.2-0.8); MONOCYTES % 7.2 % (4.4-11.3); NEUTROPHILS # (AUTO) 7.6 (2.1-6.9); NEUTROPHILS % 76.8 % (38.7-80.0); PLATELET COUNT 320 x10e3/uL (140-360); RED CELL DISTRIBUTION WIDTH 15.5 % (11.7-14.4)
[2021-08-08 06:14] LABS: ANION GAP 11.3 mmol/L (8-16); CALCIUM 7.9 mg/dL (8.4-10.2); CREATININE, SERUM 0.63 mg/dL (0.57-1.11); POTASSIUM 3.3 mmol/L (3.5-5.1)
[2021-08-08] MEDS: CARVEDILOL 12.5 MG TAB PO SCH ×2 (10:22→17:39)
[2021-08-08] MEDS: FAMOTIDINE 20 MG TAB PO SCH ×2 (10:22→17:38)
[2021-08-08] MEDS: METFORMIN HCL 500 MG TAB PO SCH ×2 (10:22→17:40)
[2021-08-08] MEDS: OXYBUTYNIN CHLORIDE 5 MG TAB PO SCH (10:23)
[2021-08-08] MEDS: HYDROCHLOROTHIAZIDE 25 MG TAB PO SCH (10:23)
[2021-08-08] MEDS: GABAPENTIN 300 MG CAP PO SCH ×2 (10:24→17:40)
[2021-08-08] MEDS: HYDROXYCHLOROQUINE SULFATE 200 MG TAB PO SCH (10:24)
[2021-08-08] MEDS: AMLODIPINE BESYLATE 5 MG TAB PO SCH ×2 (10:24→17:40)
[2021-08-08] MEDS: METHYLPREDNISOLONE 4 MG TAB PO SCH (10:24)
[2021-08-08] MEDS ORDERED: POTASSIUM CHLORIDE 20 MEQ TAB CR PO ONE (12:00)
[2021-08-08] MEDS: AMITRIPTYLINE HCL 10 MG TAB PO SCH (21:26)
[2021-08-08] MEDS: PAROXETINE HCL 20 MG TAB PO SCH (21:26)
[2021-08-08] MEDS: FOLIC ACID 1 MG TAB PO SCH (21:26)
[2021-08-08] MEDS: TIZANIDINE HCL 4 MG TAB PO SCH (21:27)
[2021-08-09] VITALS: BP 158/80
[2021-08-09 04:00] VITALS: BP 156/69
[2021-08-09] MEDS: Vancomycin IV 1 GM in SODIUM CHLORIDE 0.9% 250ML 250 ML IV SCH (04:00)
[2021-08-09 06:08] LABS: ANION GAP 12.9 mmol/L (8-16); CALCIUM 8.2 mg/dL (8.4-10.2); CREATININE, SERUM 0.65 mg/dL (0.57-1.11); POTASSIUM 3.9 mmol/L (3.5-5.1)
[2021-08-09] MEDS: LEVOTHYROXINE SODIUM 125 MCG TAB PO SCH (06:40)
[2021-08-09 08:10] VITALS: BP 162/83
[2021-08-09] MEDS: METFORMIN HCL 500 MG TAB PO SCH (08:30)
[2021-08-09] MEDS: FAMOTIDINE 20 MG TAB PO SCH (08:30)
[2021-08-09 08:35] VITALS: BP 162/83
[2021-08-09] MEDS ORDERED: COLLAGENASE 5 GM TUBE TP SCH (09:00)
[2021-08-09] MEDS: CLONIDINE HCL 0.2 MG TAB PO SCH (09:15)
[2021-08-09] MEDS: CARVEDILOL 12.5 MG TAB PO SCH (09:15)
[2021-08-09] MEDS: OXYBUTYNIN CHLORIDE 5 MG TAB PO SCH (09:17)
[2021-08-09] MEDS: HYDROCHLOROTHIAZIDE 25 MG TAB PO SCH (09:17)
[2021-08-09] MEDS: METHYLPREDNISOLONE 4 MG TAB PO SCH (09:18)
[2021-08-09] MEDS: AMLODIPINE BESYLATE 5 MG TAB PO SCH (09:18)
[2021-08-09] MEDS: GABAPENTIN 300 MG CAP PO SCH (09:18)
[2021-08-09] MEDS: HYDROXYCHLOROQUINE SULFATE 200 MG TAB PO SCH (09:18)
[2021-08-09 12:05] VITALS: BP 163/68
[2021-08-09] MEDS ORDERED: ONDANSETRON HCL 4 MG ORAL DISINTEGRATING TAB PO PRN (13:00)
== END 2021-08-09 13:25 | disposition home health service (06) ==
LOC: ER 13:01 → INTOOBSV 14:42 → ERHOLD 14:42 → MED/SURG3 15:56 → UNDODISIN 17:19
DX: L03.116 Cellulitis of left lower limb (principal); S81.012A Laceration without foreign body, left knee, initial encounter; I10 Essential (primary) hypertension; E11.51 Type 2 diabetes mellitus with diabetic peripheral angiopathy without gangrene; E03.9 Hypothyroidism, unspecified; E78.5 Hyperlipidemia, unspecified; M32.9 Systemic lupus erythematosus, unspecified; M06.9 Rheumatoid arthritis, unspecified; Z20.822 Contact with and (suspected) exposure to COVID-19; Z79.84 Long term (current) use of oral hypoglycemic drugs
CPT/HCPCS: 36415 ×3; 73562; 73610; 80048 ×2; 80053; 82948 ×3; 85025 ×2; 87040; 97139; 97602; 99251; 99284; G0378 ×3; J0692 ×3; J3370 ×3; J7050 ×3; J7509 ×2; U0002

== ENCOUNTER 2024-10-04 17:22 | Emergency (ER) | payer MEDICARE ==
[~2024-10-04] VITALS: Ht 160 cm; Wt 54.4 kg
[~2024-10-04 17:22] MED LIST changes: +CLONIDINE HCL0.2 MG PO; +METHOTREXATE2.5 MG PO; +OXYBUTYNIN CHLOR5 MG PO; +ULTRAM50 MG PO; +tylenol #3 PO
[2024-10-04 17:30] VITALS: PULSE 86; RESP 20; TEMP 98.7; O2SAT 100
[2024-10-04] MEDS ORDERED: DIPHTH,PERTUSS(ACELL),TET VAC 0.5 ML SYRINGE IM ONE (18:24)
[2024-10-04] MEDS: DIPHTH,PERTUSS(ACELL),TET VAC 0.5 ML SYRINGE IM ONE (18:24)
== END 2024-10-04 18:33 | disposition home or self-care (01) ==
LOC: FSED 18:09
DX: S81.811A Laceration without foreign body, right lower leg, initial encounter (principal); W22.09XA Striking against other stationary object, initial encounter; Y93.01 Activity, walking, marching and hiking; Y92.89 Other specified places as the place of occurrence of the external cause; I10 Essential (primary) hypertension; E11.9 Type 2 diabetes mellitus without complications; E78.5 Hyperlipidemia, unspecified; E03.9 Hypothyroidism, unspecified; M32.9 Systemic lupus erythematosus, unspecified; M06.9 Rheumatoid arthritis, unspecified
CPT/HCPCS: 99284